=== PATIENT | female | born 1935 | race Caucasian/White ===

== ENCOUNTER 2016-04-25 15:34 | Inpatient (IN) | payer MEDICARE, OTHER ==
[~2016-04-25] VITALS: Ht 152.4 cm; Wt 38.6 kg
[~2016-04-25 15:34] MED LIST: ADV50050 INH; ALBU8.5H3 INH; ALEN70TA30 PO; CELE200C PO; CHOL20003 PO; CLIN-73 PO; CYCL5TAB PO; HYDR2TAB3 PO; LEVO500T72 PO; MORP15TA92 PO; PRED20 PO; TIOT18CA IH; [UNRECOGNIZED DRUG - CODE] PO
[2016-04-25] MEDS ORDERED: LEVOFLOXACIN 500MG/D5W (PMX) 100 ML IV STA (19:31)
[2016-04-25] MEDS ORDERED: AZTREONAM 1 GM/NS (PMX) 50 ML IVPB STA (19:37)
[2016-04-25] MEDS ORDERED: SODIUM CHLORIDE 0.9% 1L BAG IV* STA (19:37)
[2016-04-25] MEDS ORDERED: VANCOMYCIN 1 GM (PMX) 250 ML IVPB STA (19:37)
[2016-04-25] MEDS ORDERED: ONDANSETRON 4 MG INJ IV PRN (20:00)
[2016-04-25] MEDS ORDERED: MAGN400T28 PO (20:20)
[2016-04-25] MEDS ORDERED: MORP-58 PO (20:21)
[2016-04-25] MEDS ORDERED: HYDR4TAB18 PO (20:22)
[2016-04-25] MEDS ORDERED: CELE200C PO (20:23)
[2016-04-25] MEDS ORDERED: ALBU18HF INHALATION (20:24)
[2016-04-25] MEDS ORDERED: MULTI PO (20:29)
--- NOTE | 2016-04-25 20:30 | RADRPT ---
PROCEDURE: XR Chest AP portable CLINICAL INDICATION: Short of breath TECHNIQUE: An AP portable radiograph of the chest was submitted. COMPARISON: 04/08/2014 FINDINGS: Support Hardware: None Cardiovascular: The cardiovascular silhouette appears unremarkable except for persistent atheroscler otic change involving the aorta and centralization of the pulmonary vasculature suspicious for pulmo nary tail hypertension. Lung Gill: The lung gill remain hyperexpanded but the infiltrates and atelectatic change previou sly seen at the lung bases have cleared. Pleural Spaces: No pneumothorax or pleural effusion is identified. Osseous Structures: Degenerative spine changes are again noted with a dextroscoliotic curve of the t horacolumbar junction. Soft Tissues: The soft tissues appear unremarkable. IMPRESSION: 1. Resolution of the infiltrate/atelectatic change previously seen at the lung bases. 2. COPD with pulmonary arterial hypertension along with atherosclerotic change to the aorta. 3. Degenerative spine changes with a dextroscoliotic curve at the thoracolumbar junction. Physician Satish Date Time Electronically viewed and signed by Physician Satish on 04/25/2016 20:30 /
[2016-04-25] MEDS ORDERED: ANAS1TAB PO (20:37)
[2016-04-25 20:38] LABS: BASOPHILS % 0.3 % (0.0-2.0); EOSINOPHILS # 0.1 10^3/ul (0.0-0.5); HEMATOCRIT 44.1 % (37.0-47.0); HEMOGLOBIN 14.9 g/dl (12.0-16.0); LYMPHOCYTES # 1.1 10^3/ul (0.8-2.9); LYMPHOCYTES % 16.6 % (15.0-51.0); MEAN CORPUSCULAR HEMOGLOBIN 31.5 pg (29.0-33.0); MEAN CORPUSCULAR HGB CONC 33.8 g/dl (32.0-37.0); MEAN CORPUSCULAR VOLUME 93.1 fl (82.0-101.0); MEAN PLATELET VOLUME 8.5 fl (7.4-10.4); MONOCYTE # 0.4 10^3/ul (0.3-0.9); MONOCYTES % 5.8 % (0.0-11.0); NEUTROPHIL # 5.2 10^3/ul (1.6-7.5); NEUTROPHILS % 76.3 % (39.0-77.0); PLATELET COUNT 233 10^3/UL (140-440); RED BLOOD COUNT 4.73 10^6/ul (4.20-5.40); RED CELL DISTRIBUTION WIDTH 12.8 % (11.5-14.5); UNCORRECTED WBC 6.8 10^3/ul (4.8-10.8); WHITE BLOOD COUNT 6.8 10^3/ul (4.8-10.8)
[2016-04-25 20:39] LABS: CHLORIDE 95 mmol/L (97-110); POTASSIUM 3.5 mmol/L (3.5-5.1); SODIUM 142 mmol/L (135-144)
[2016-04-25 20:42] LABS: ANION GAP 17 (8-16); BLOOD UREA NITROGEN 23 mg/dl (7-20); CALCIUM 9.9 mg/dl (8.4-10.2); CARBON DIOXIDE 34 mmol/L (21-31); CREATININE 0.96 mg/dl (0.44-1.00); GLUCOSE 95 mg/dl (70-220)
[2016-04-25 20:43] LABS: CONDITION 1
[2016-04-25 20:56] LABS: TROPONIN-I < 0.012 ng/ml (0.00-0.12)
--- NOTE | 2016-04-25 21:21 | RADRPT ---
PROCEDURE: CT chest without contrast. CLINICAL INDICATION: Pain TECHNIQUE: Noncontrast CT of the chest was performed utilizing axial images with reconstructions i n sagittal and coronal planes. The administered radiation dose is CTDI 3.9 mGy, DLP 153 mGy-cm. COMPARISON: No pertinent prior examinations are submitted for comparison. FINDINGS: Chest: There is a 4.2 cm spiculated mass within the left lower lobe with some surrounding interstitial thic kening and associated trace pleural effusion. There is an 8 mm patchy spiculated nodule within the r ight middle lobe on image 77 of series 3. There is a 5 mm spiculated nodule in the right lower lobe on image 86 of series 3. Pulmonary emphysematous changes are present. The tracheobronchial tree i s unremarkable. There is extensive adenopathy in the paratracheal, subcarinal and bilateral hilar regions. Discrete lymph nodes are difficult to measure in the absence of intravenous contrast. There is trace pericardial effusion or thickening. Coronary artery calcifications are noted. The h eart is normal in size. Visualized Upper abdomen: Unremarkable. Osseous structures: There is mild to moderate anterior wedging of L1 without definite acute fracture . No lytic or blastic osseous lesions are seen. IMPRESSION: Left lower lobe mass with surrounding interstitial opacity and trace effusion. Findings are most co mpatible with primary lung neoplasm with likely adjacent lymphangitic spread of tumor. Mediastinal adenopathy. Smaller nodules in the right lower and middle lobes which could represent metastatic disease. Anterior wedging of L1 which is likely chronic unless the patient has acute back pain. RPTAT: HIKT .Doyle Nolasco MD, Date Time Electronically viewed and signed by .Doyle Nolasco MD, MD on 04/25/2016 21:20 .T/
[2016-04-25 21:45] VITALS: TEMP 98.7
--- NOTE | 2016-04-25 22:09 | ERA ---
ER Documentation Chief Complaint Date/Time DATE: 04/25/16 TIME: 22:07 Chief Complaint SOB FOR A FEW WKS. FAILED PO ABX FOR PNA. HERE FOR NO IMPROVEMENT OF SOB HPI Patient is an 80-year-old female who presents for pneumonia. The patient was sent by Dr. Christy Hernandez who is her primary doctor for admission. She has pneumonia. She says that she has had cough for the past 2-3 weeks. She has chest pain and shortness of breath. She was on antibiotics but is not better. Upon review of old medical records this is the patient's fourth visit to the ER since 2008. ROS All systems reviewed and are negative except as per history of present illness. Medications Home Meds Reported Medications Anastrozole* (Arimidex*) 1 Mg Tablet, 1 MG PO DAILY, #30 TAB 04/25/16 Multivitamins* (Theragran*) 1 Tab Tab, 1 TAB PO DAILY, TAB 04/25/16 Albuterol Sulfate* (Ventolin HFA*) 18 Gm Hfa.aer.ad, 2 PUFF INHALATION DIRECTED, #1 INHALER 04/25/16 Celecoxib* (Celebrex*) 200 Mg Capsule, 400 MG PO DAILY, CAP 04/25/16 Hydromorphone Hcl* (Dilaudid*) 4 Mg Tablet, 4 MG PO Q8 Y for PAIN, TAB 04/25/16 Morphine Sulfate* (Oramorph SR*) 30 Mg Tablet.sa, 30 MG PO Q12, TAB.SA 04/25/16 Magnesium Oxide* (Magnesium Oxide*) 400 Mg Tablet, 400 MG PO DAILY, TAB 04/25/16 Cholecalciferol (Vitamin D3) (VITAMIN D-3) 2,000 Unit Capsule, 2000 UNIT PO DAILY 03/31/14 Discontinued Reported Medications Cyclobenzaprine Hcl* (Cyclobenzaprine Hcl*) 5 Mg Tablet, 5 MG PO, TAB 12/15/14 Albuterol Sulfate* (Proair HFA*) 8.5 Gm Hfa.aer.ad, 1 PUFF INH Y for SHORTNESS OF BREATH, INH 03/31/14 Tiotropium Schuyler* (Spiriva*) 18 Mcg Cap.w.dev, 1 INH IH DAILY, EA 03/31/14 Salmeterol Xinaf-Fluticasone* (Advair*) 500/50 Diskus Inhaler, 1 INH INH DAILY, INH 03/31/14 Acyclovir* (Zovirax*) 200 Mg Capsule, 800 MG PO DAILY, CAP 03/30/14 Alendronate Sodium* (Fosamax*) 70 Mg Tablet, 70 MG PO Q7D, TAB 03/30/14 Morphine Sulfate* (Ms Contin*) 15 Mg Tablet.sa, 15 MG PO Q12, TAB 03/30/14 Hydromorphone Hcl (Dilaudid) 2 Mg Tab, 2 MG PO BID Y for PAIN, TAB 03/30/14 Celecoxib* (Celebrex*) 200 Mg Capsule, 200-400 MG PO DAILY, CAP 03/30/14 Discontinued Scripts Clindamycin Hcl* (Clindamycin Hcl*) 300 Mg Capsule, 300 MG PO TID for 7 Days, CAP Prov:DAVID PHAN PA-C 02/27/16 Prednisone (Prednisone) 20 Mg Tab, 40 MG PO qd for 4 days then 1, #14 TAB Prov:CHRISTY HERNANDEZ MD 04/08/14 Levofloxacin* (Levaquin*) 500 Mg Tab, 500 MG PO DAILY@06, #7 Prov:CHRISTY HERNANDEZ MD 04/08/14 Allergies Allergies: Coded Allergies: benztropine (Verified Allergy, Severe, 04/25/16) tremors badly. pineapple (Verified Allergy, Severe, severe rashes, 04/25/16) acetaminophen (Unverified Allergy, Intermediate, 04/25/16) STOMACH UPSET/VOMITING. ibuprofen (Verified Allergy, Intermediate, 04/25/16) STOMACH UPSET/VOMITING. Penicillins (Verified Allergy, Unknown, 04/25/16) Sulfa (Sulfonamide Antibiotics) (Verified Allergy, Unknown, 04/25/16) codeine (Verified Adverse Reaction, Unknown, NV, 04/25/16) Uncoded Allergies: STRAWBERRIES (Allergy, Severe, severe rashes, 03/30/14) TOMATOES (Allergy, Severe, severe rashes, 03/30/14) plastic tape. (Allergy, Severe, 12/15/14) itchy, redness. PMhx/Soc History of Surgery: Yes (LUMPECTOMY 12/13;HIP SURGERY;) Anesthesia Reaction: No Hx Neurological Disorder: No Hx Respiratory Disorders: Yes (HAD PNEUMONIA LAST MARCH 2014) Hx Cardiac Disorders: Yes (HYPERTENSION) Hx Psychiatric Problems: No Hx Miscellaneous Medical Probl: No Hx Alcohol Use: No Hx Substance Use: No Hx Tobacco Use: No Smoking Status: Never smoker FmHx Family History: No diabetes Physical Exam Vitals Vital Signs Date Time Temp Pulse Resp B/P Pulse Ox O2 Delivery O2 Flow Rate FiO2 04/25/16 15:47 99.1 100 22 128/58 95 Physical Exam Const: No acute distress Head: Atraumatic Eyes: Normal Conjunctiva ENT: Normal External Ears, Nose and Mouth. Neck: Full range of motion..~ No meningismus. Resp: Clear to auscultation bilaterally Cardio: Regular rate and rhythm, no murmurs Abd: Soft, non tender, non distended. Normal bowel sounds Skin: Pale Back: No midline or flank tenderness Ext: No cyanosis, or edema Neur: Awake and alert Psych: Normal Mood and Affect Result Diagram: 04/25/16199904/25/161999 Results 24 hrs Current Medications Medications (Trade) Dose Ordered Sig/Machelle Route PRN Reason Start Time Stop Time Status Last Admin Dose Admin Levofloxacin/ Dextrose (Levaquin 500mg/ D5W 100 ml (Pmx)) 100 ml @ 100 mls/hr ONCE STAT IV 04/25/16 19:31 04/25/16 19:40 DC Sodium Chloride 1200 ml 1,200 ml BOLUS OVER 2 HOURS STAT IV* 04/25/16 19:37 04/25/16 19:40 DC 04/25/16 20:39 Vancomycin HCl 250 ml @ 125 mls/hr ONCE STAT IVPB 04/25/16 19:37 04/25/16 21:36 DC 04/25/16 21:13 Aztreonam (Azactam 1gm/NS (Pmx)) 50 ml @ 100 mls/hr ONCE STAT IVPB 04/25/16 19:37 04/25/16 20:06 DC 04/25/16 20:39 Procedures/MDM EKG read by me: Rate/Rhythm: Regular rate and rhythm at a normal rate Intervals: Normal Impression: No evidence of ischemia or arrhythmia CT scan shows lung mass per radiology. Patient is an 80-year-old female presents with chest pain and shortness of breath. The patient had been treated with antibiotics for a pneumonia. The patient will be admitted to Dr. Christy Hernandez her primary doctor for further treatment. Unfortunately CT scan does show a lung mass which is likely lung cancer. The patient will need further workup and treatment for this while admitted to the hospital. I doubt sepsis at this time. Departure Diagnosis: Primary Impression: PNA (pneumonia) Qualified Code: J18.9 - Pneumonia due to infectious organism, unspecified laterality, unspecified part of lung Additional Impression: Lung mass Condition: HARIKA Plummer MD Apr 25, 2016 22:09
[2016-04-25 22:30] VITALS: BP 148/85; PULSE 85; RESP 18; Ht 152.4 cm; Wt 38.6 kg
[2016-04-25] MEDS ORDERED: ZOLPIDEM 5 MG TAB PO PRN (23:00)
[2016-04-25] MEDS: D5W-0.45 NACL + KCL 20 MEQ 1,000 ML IV SCH (23:37)
[2016-04-26] MEDS: LEVALBUTEROL (NEB) 0.63 MG/3 ML AMP HHN SCH ×3 (00:51→15:46)
[2016-04-26] MEDS: HYDROmorphONE 2 MG/ML SYG IV PRN ×2 (01:35→09:26)
[2016-04-26] MEDS ORDERED: VITAMIN A & D 5 GM OINT PACKET TOP ONE (01:55)
[2016-04-26 05:45] LABS: INR 1.02; PROTIME 13.4 Sec (12.2-14.2)
[2016-04-26 05:46] LABS: PARTIAL THROMBOPLASTIN TIME 31.7 Sec (25.0-35.0)
[2016-04-26 06:08] LABS: ALBUMIN 3.4 g/dl (3.3-4.9); POTASSIUM 3.5 mmol/L (3.5-5.1)
[2016-04-26 06:11] LABS: ALBUMIN/GLOBULIN RATIO 1.3; BILIRUBIN,INDIRECT 0.1 mg/dl (0-1.1); BILIRUBIN,TOTAL 0.1 mg/dl (0.2-1.3); CALCIUM 8.6 mg/dl (8.4-10.2); CREATININE 0.78 mg/dl (0.44-1.00)
[2016-04-26 07:32] VITALS: BP 156/70; RESP 13
[2016-04-26] MEDS: MULTIVITAMINS THERAPEUTIC TAB PO SCH (09:28)
[2016-04-26] MEDS: MAGNESIUM OXIDE 400 MG TAB PO SCH (09:28)
[2016-04-26] MEDS: CELECOXIB 200 MG CAP PO SCH (09:28)
[2016-04-26] MEDS: CHOLECALCIFEROL 2,000 UNIT CAP PO SCH (09:28)
[2016-04-26] MEDS: morphine (ER) 30 MG TAB PO SCH ×2 (09:28→20:49)
[2016-04-26] MEDS: AZTREONAM 2 GM in SOD CHLORIDE 0.9% 100 ML IVPB SCH ×2 (09:34→20:50)
[2016-04-26] MEDS: ANASTROZOLE 1 MG TAB PO SCH (09:50)
--- NOTE | 2016-04-26 12:45 | CONS ---
DATE OF ADMISSION: 04/25/2016 DATE OF CONSULTATION: 04/26/2016 MEDICAL ONCOLOGY CONSULTATION REQUESTING PHYSICIAN: Christy Hernandez MD REASON FOR CONSULTATION: Left lung mass. Dear Dr. Hernandez: Thank you very much for asking me to see this very interesting and pleasant patient in oncologic consultation. As you are aware, I have seen this patient previously. Originally the patient was seen in July 2014. The patient at that time had undergone a needle biopsy of a mass that had been found on a routine mammogram in the left breast. 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 The tumor was found to be estrogen and progesterone receptor positive. There was no amplification of the HER2/kaylah oncogene. The patient then underwent a resection of the right breast mass on 12/15/2014. The patient was found to have invasive lobular carcinoma with a maximum dimension of 13 mm. There was some invasive carcinoma at the superior margin. The patient was advised at that time to undergo reexcision, but was hesitant. Ultimately the patient did undergo reexcision of the area on 01/26/2015. There was no residual malignancy found. The patient was then referred for radiation therapy evaluation, but never started radiation. The patient continued to delay. Ultimately, the patient was last seen by Dr. Nader Mcneil for radiation evaluation in December, but was considered at that time that the patient was too long of an interval for radiation to be of benefit. The patient at that time was started on anastrozole 1 mg daily and has been taking that since that time, but it was felt at that time that the interval was too long. The patient, it should be noted, did have a PET CT scan done in August 2014. This did show the mass in the breast and also questionable nodules in the superior segment of the left lower lobe. It was unclear whether this was inflammatory in nature. The patient also did have previous marker studies obtained. This includes, on 07/06/2015, a CEA of 8.7 and CA 27-29 of 17.4. This was repeated 3 weeks ago, and the patient has a CEA now 146 and CA 27 of 28.3. The patient is now admitted after experiencing some mild chest discomfort. X-rays done as an outpatient suggested a left lower lobe pneumonia. The patient was treated with Levaquin. Symptoms did not improve. The patient has now undergone a CT scan of the chest on 04/25/2016 which demonstrates a left lower lobe mass. There is also mediastinal adenopathy noted. There were smaller nodules in the right lower and right middle lobes. The patient, as noted, has had some pressed chest discomfort and also some shortness of breath with dyspnea on exertion. She denies cough or hemoptysis. She has had no pleuritic chest pain. No fevers, chills, nor night sweats. No other areas of pain except for chronic back pain. LABORATORY on admission includes a white count of 6800, hemoglobin 14.9, hematocrit 44.1, platelet count 233,000. Prothrombin time was 13.4 seconds, INR of 1.02, and PTT 31.7 seconds. A comprehensive metabolic panel is normal except for a total protein of only 6, albumin is 3.4, and globulin 2.6. PAST MEDICAL HISTORY: Includes a history of dyslexia. She also states she has hepatitis B, herpes zoster as well as herpes simplex, asthma, scoliosis, and a total hip replacement on the right side. The patient also states she has had D and C's in the past for "polyps." The patient had menarche at 9 years of age. Last menstrual period was in 1972. The patient is 1, para 1, AB 0. was when the patient was 18 years of age. She states that she did take some type of hormone replacement since age 19. She did take Premarin for many years, but then was switched to raloxifen which she took until seen in 2014. MEDICATIONS: At this time include: 1. Acyclovir 200 mg daily. 2. Anastrozole 1 mg daily. 3. Celebrex 200 mg daily. 4. Denosumab 60 mg every 6 months. 5. Hydromorphone 2 mg on a p.r.n. basis. 6. Morphine 15 mg daily orally. 7. Multiple vitamins. 8. Vitamin D3. ALLERGIES: THE PATIENT STATES SHE IS ALLERGIC TO: 1. PENICILLINS. 2. SULFA. 3. ACETAMINOPHEN. 4. CODEINE. 5. IBUPROFEN. SOCIAL HISTORY: The patient is unmarried. 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 She has no known exposures to industrial toxins or ionizing radiation. FAMILY HISTORY: Includes that father may have had lung cancer. He at 67. Mother at 83 of colon cancer. She has a brother who is alive at 75 years of age with multiple sclerosis. The patient did smoke in the past. She states she has not smoked since 2084. Does use alcohol. PHYSICAL EXAMINATION: GENERAL: At this time, reveals a well-developed, thin female in no acute distress. VITAL SIGNS: Temperature 99, pulse 68, respirations 14, blood pressure 156/70, and pulse oximetry is 93% on room air. SKIN: No ecchymosis, no petechiae, or rashes. HEENT: Normocephalic. No evidence of trauma. The pupils are equal, round, reactive to light and accommodation. Sclerae nonicteric. Oral mucosa is moist without lesions. Tongue is well papillated. There is no gingival hyperplasia, no hypertrophy of Waldeyer's ring, no mucosal telangiectasias. NECK: Supple, no jugular venous distention or thyroid enlargement. CHEST: There are some decreased breath sounds and rales heard in the left base. No rubs. The right lung us clear. There is no pain on percussion of the spine, sternum, clavicles, or ribs. BREASTS: There is a well-healed incision in the medial aspect of the right breast as well as in the right axilla. There are no masses, skin retraction, or nipple inversion in either breast. HEART: Regular sinus rhythm, no S3, S4, or murmurs. ABDOMEN: Soft. No masses or ascites. Bowel sounds are active. EXTREMITIES: Good range of motion. No clubbing, no edema or cyanosis. No palpable cords or Homans sign. NEUROLOGIC: Normal. DISCUSSION: This patient has a history of invasive carcinoma of the breast, but this was a stage I lesion. The patient never had postoperative radiation after her "lumpectomy." She has been taking anastrozole 1 mg daily. The patient now has a mass in the left lower lobe of the lung. She has an increasing CEA, but a normal CA 27-29. This suggests the probability of a primary lesion of the lung. I do feel that a tissue diagnosis is necessary and this can best be obtained by doing a CT-guided needle biopsy of the left lower lobe mass. If a malignancy is demonstrated, the patient should then also have a PET CT scan to determine the extent of disease. Once again, thank you very much for the opportunity of participating in the medical care of this very interesting and pleasant patient. I will be happy to follow this patient with you and assist in her oncologic evaluation and follow up as necessary. Dictated By: CLARISSA DE PAZ MD, SR/CHRISSIE Conf#: [id number] DID#: [id number] MTDD
[2016-04-26] MEDS: D5W-0.45 NACL + KCL 20 MEQ 1,000 ML IV SCH (14:09)
--- NOTE | 2016-04-26 16:41 | HP ---
DATE OF ADMISSION: 04/25/2016 CHIEF COMPLAINT: Chest pain, shortness of breath and nausea and vomiting. HISTORY OF PRESENT ILLNESS: This is an 80-year-old female with a history of right breast cancer who was seen in the office 1 week prior to admission and noted to have new onset left basilar infiltrate. Patient did not want to be admitted for pneumonia at that time and she was started on Levaquin for 1 week. She came back for recheck the day prior to admission and the chest x-ray showed unchanged left basilar infiltrate. We then obtained a set of blood tests with CBC and kidney panel and order for a chest CT the following day to be done at [facility]. However, on the day of appointment for her CT scan, the patient began developing nausea, vomiting and became very weak. She asked a friend to bring her into the emergency room where she was found to be dehydrated and the chest CT showed left basilar mass consolidation. The patient is admitted for treatment of possible pneumonitis that is resistance to Levaquin and workup for possible left lung cancer versus metastatic breast cancer. PAST MEDICAL HISTORY: 1. Breast cancer. 2. Multiple cysts bilateral breasts. 3. History of left lung nodules. 4. Hypertension. 5. History of pneumonia. 6. Lumbar spine degenerative disk disease. 7. Osteoarthritis status post hip surgery. 8. Osteoporosis. 9. Asthma. 10. Insomnia. ALLERGIES 1. PENICILLIN. 2. SULFA. OTHER MEDICATION THAT CAUSES A LOT OF NAUSEA AND VOMITING: INCLUDE: 1. IBUPROFEN. 2. TYLENOL WITH CODEINE. 3. HYDROCODONE. 4. OXYCODONE. MEDICATIONS: 1. Arimidex 1 mg p.o. every day. 2. Celebrex 200 mg p.o. daily. 3. Morphine sulfate ER 30 mg p.o. b.i.d. 4. Magnesium oxide 400 mg p.o. every day. 5. Vitamin D 2000 units p.o. every day. 6. Dilaudid 4 mg p.o. q. 8 hours as needed for pain. 7. Albuterol sulfate HFA as needed for asthma. SOCIAL HISTORY: The patient lives alone in her own home. She is not able to drive. She denies ever having smoked and she does not drink alcohol. 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 FAMILY HISTORY: Negative for cancer or heart disease. PHYSICAL EXAMINATION: GENERAL: Thin, cachectic-appearing female who is awake and alert x4. VITAL SIGNS: T-max 99.1, current temperature 98.2, blood pressure 148/85, pulse of 85, respiration rate 18, O2 saturation 95% on room air. HEENT: Pupils equally round, reactive to light. Oropharynx clear with, dry buccal mucosa. NECK: No jugular venous distention. CHEST LUNGS: Notable for a left basilar rales [address] There are minimal right basilar rales. ABDOMEN: Active bowel sounds, soft, nondistended, nontender. EXTREMITIES: No clubbing, cyanosis, no edema at this time. LABORATORY: WBC 6.8, hemoglobin 14.9, hematocrit 44.1, platelet count 233,000. Differentials are within normal limits. Chemistry shows a sodium of 139, potassium 3.5, BUN was elevated last night at 23. It was normal at 17 this morning, creatinine 0.7. The patient's liver enzymes are within normal limits except for mild decrease of total protein of 6.0. Chest x-ray in the ER shows resolution of the infiltrate previously seen at the lung bases compared to the chest x-ray of 2015. There are COPD changes with pulmonary, arterial hypertension along with atherosclerotic changes to the aorta. There are degenerative spine changes with dextroscoliotic curve at the level of the thoracolumbar junction. The patient's chest CT shows left lower lobe mass with surrounding interstitial opacities and trace effusion. Findings are most compatible with primary spasm with likely adjacent lymphangitic spread of tumor. There is mediastinal adenopathy. There are smaller lung nodules in the right lower and middle lobe which could represent metastatic disease and anterior compression fracture of L1 which is probably chronic. ASSESSMENT AND PLAN : 1. Left lower lobe consolidation may represent lung cancer but also may be resolving pneumonitis. I will also obtain the old CT scan reports. The patient insists that she has had left base nodule for many, many years. In the meantime, we will continue the patient on IV antibiotic and check with patient' s oncologist, Dr. Cordova regarding further workup for her left lung mass. 2. Chest pain, most likely due to pulmonary changes, but since she does have evidence of pulmonary hypertension on chest x-ray, I will obtain a 2D echocardiogram. Dictated By: FERNIE BONE MD DP/CHRISSIE Conf#: [id number] [facility]#: [id number] MTDD
[2016-04-26] MEDS ORDERED: DIPHENHYDRAMINE 50 MG INJ IV PRN (17:00)
[2016-04-26 20:31] VITALS: BP 125/74; RESP 18
[2016-04-26] MEDS ORDERED: DOCUSATE SODIUM 10 MG/ML (10ML CUP) GTB SCH (21:00)
[2016-04-26] MEDS: DOCUSATE SODIUM 100 MG CAP PO SCH (21:10)
[2016-04-27] MEDS: D5W-0.45 NACL + KCL 20 MEQ 1,000 ML IV SCH ×3 (03:36→17:54)
[2016-04-27] MEDS: LEVALBUTEROL (NEB) 0.63 MG/3 ML AMP HHN SCH ×4 (07:33→18:19)
[2016-04-27 07:34] VITALS: BP 116/67; RESP 18
[2016-04-27] MEDS: MULTIVITAMINS THERAPEUTIC TAB PO SCH (08:07)
[2016-04-27] MEDS: CHOLECALCIFEROL 2,000 UNIT CAP PO SCH (08:07)
[2016-04-27] MEDS: CELECOXIB 200 MG CAP PO SCH (08:07)
[2016-04-27] MEDS: DOCUSATE SODIUM 100 MG CAP PO SCH ×2 (08:07→20:38)
[2016-04-27] MEDS: MAGNESIUM OXIDE 400 MG TAB PO SCH (08:07)
[2016-04-27] MEDS: AZTREONAM 2 GM in SOD CHLORIDE 0.9% 100 ML IVPB SCH ×2 (08:08→20:37)
[2016-04-27] MEDS: ANASTROZOLE 1 MG TAB PO SCH (08:20)
[2016-04-27] MEDS: morphine (ER) 30 MG TAB PO SCH ×2 (08:49→20:46)
--- NOTE | 2016-04-27 18:02 | PN ---
Date/Time of Note Date/Time of Note DATE: 04/27/16 TIME: 17:59 Assessment/Plan VTE Prophylaxis VTE Prophylaxis Intervention: ambulation Lines/Catheters IV [facility] Peripheral IV Assessment/Plan Chief Complaint/Hosp Course Patient with: 1. Left lower lung mass, with plan for biopsy. Its ordered with plan to be done Friday. 2. Breast cancer, stage 1, recent diagnosis and on Arimidex. 3. Mild shortness of breath, which is new during admit Plan: Biopsy Friday Continue Anastrazole HLIV - in case she is volume overloaded causing sob. Problems: Subjective 24 Hr Interval Summary Free Text/Dictation She feels somewhat short of breath, which is new. On inhalers and small amount oxygen. She is on IVF could have volume issues. Exam/Review of Systems Vital Signs Vitals Vital Signs Date Time Temp Pulse Resp B/P Pulse Ox O2 Delivery O2 Flow Rate FiO2 04/27/16 16:00 94 1.0 04/27/16 08:00 Nasal Cannula 04/27/16 07:34 97.7 68 18 116/67 04/26/16 01:02 21 Intake and Output 04/26/16 04/26/16 04/27/16 15:00 23:00 07:00 Intake Total 1100 ml 1910 ml 1060 ml Balance 1100 ml 1910 ml 1060 ml Exam This female, up and about. NAD No LAD Chest - decrease breath sounds and distant sounds bilaterally. Heart - regularly Abd soft Legs trace edema. Results Result Diagram: 04/25/16199904/26/16 0455 Medications Medications Current Medications Potassium Chloride/Dextrose/ Sod Cl (D5-1/2ns + KCl 20 Meq) 1,000 ml @ 70 mls/ hr [id number] IV Last administered on 04/27/16 05:16; Admin Dose 70 MLS/HR; Start 04/25/16 at 23:00 Anastrozole (Arimidex) 1 mg DAILY PO Last administered on 04/27/16 08:20; Admin Dose 1 MG; Start 04/26/16 at 09:00 Celecoxib (Celebrex) 400 mg DAILY PO Last administered on 04/27/16 08:07; Admin Dose 400 MG; Start 04/26/16 at 09:00 Cholecalciferol (Vitamin D) 2,000 unit DAILY PO Last administered on 04/27/16 08:07; Admin Dose 2,000 UNIT; Start 04/26/16 at 09:00 Magnesium Oxide (Mag-Ox 400) 400 mg DAILY PO Last administered on 04/27/16 08: 07; Admin Dose 400 MG; Start 04/26/16 at 09:00 Morphine Sulfate (Ms Contin (Er)) 30 mg Q12 PO Last administered on 04/26/16 20:49; Admin Dose 30 MG; Start 04/26/16 at 09:00 Multivitamins Therapeutic 1 tab 1 tab DAILY PO Last administered on 04/27/16 08:07; Admin Dose 1 TAB; Start 04/26/16 at 09:00 Aztreonam/Sodium Chloride (Azactam/NS) 100 ml @ 100 mls/hr Q12 IVPB Last administered on 04/27/16 08:08; Admin Dose 100 MLS/HR; Start 04/26/16 at 09:00 Ondansetron HCl (Zofran Inj) 4 mg Q4H PRN IV NAUSEA AND/OR VOMITING; Start at 23:00 Zolpidem Tartrate (Ambien) 5 mg HS PRN PO INSOMNIA; Start 04/25/16 at 23:00 Clonidine (Catapres) 0.1 mg Q6H PRN PO sbp>160; Start 04/25/16 at 23:00 Hydromorphone HCl (Dilaudid) 2 mg Q4H PRN IV PAIN Last administered on 09:26; Admin Dose 2 MG; Start 04/26/16 at 01:30 Diphenhydramine HCl (Benadryl) 25 mg Q6H PRN IV ITCHING Last administered on 17:29; Admin Dose 25 MG; Start 04/26/16 at 17:00 Docusate Sodium (Colace) 100 mg BID PO Last administered on 04/27/16 08:07; Admin Dose 100 MG; Start 04/26/16 at 21:00 JORGE SIM MD Apr 27, 2016 18:02
[2016-04-27] MEDS: HYDROmorphONE 2 MG/ML SYG IV PRN ×2 (19:32→23:35)
[2016-04-27 19:48] VITALS: BP 117/60; RESP 20
[2016-04-28] MEDS: HYDROmorphONE 2 MG/ML SYG IV PRN ×4 (05:49→23:09)
[2016-04-28 07:10] LABS: CREATINE KINASE 40 IU/L (23-200)
[2016-04-28 07:19] LABS: TROPONIN-I < 0.012 ng/ml (0.00-0.12)
[2016-04-28 07:37] VITALS: BP 139/71; RESP 18
--- NOTE | 2016-04-28 07:38 | RADRPT ---
Echocardiogram Report Patient Name: JAMIR BRUNO Gender: Female Date: 1935 Study Date: 26-Apr-2016 Eap Specialist: Mar [facility] Location: 604 Ref. Physician: FERNIE BONE Quality: Adequate Procedures: Transthoracic echocardiogram with complete 2D, M-Mode, and doppler examination. Indications: Chest Pain. Pulmonary Hypertension. 2D/M Mode Doppler Measurement Value Normal Ranges Measurement Value Normal Ranges LVIDd 2D 2.8 3.5 - 5.6 cm AV Peak Anshu 1.5 m/sec LVIDs 2D 1.7 2.1 - 4.1 cm AV Peak PG 8.0 mmHg FS 2D 40.8 % LVOT Peak Anshu 0.9 m/sec LVPWd 2D 0.8 0.6 - 1.1 cm LVOT Peak PG 3.0 mmHg IVSd 2D 0.8 0.6 - 1.1 cm MV E Peak Anshu 1.1 m/sec IVS/LVPW 2D 1.0 MV A Peak Anshu 0.9 m/sec AoR Diam 2D 2.1 2.0 - 3.7 cm MV E/A 1.3 LA/Ao 2D 1 0 - 1 MV Decel Time 215 msec EDV 2D 22.4 cm3 MV E/A 1.3 ESV 2D 4.7 cm3 TR Peak Anshu 3.4 m/sec LA Dimen 2D 2.3 2.3 - 4.0 cm TR Peak PG 46.0 mmHg Findings Left Ventricle: Hyperdynamic left ventricular systolic function. Normal left ventricular wall thickness. Reduced left ventricular cavity size. Abnormal Diastolic Function. Right Ventricle: Mild enlargement of right ventricle. Borderline right ventricular hypertrophy. Hyperdynamic right ventricular systolic function. Prominent moderator band - normal variant. Left Atrium: The left atrium is normal in size. Right Atrium: There is mild enlargement of right atrium. Mitral Valve: Mild mitral leaflet calcification. Mild mitral annular calcification. Trace mitral regurgitation. Aortic Valve: Trileaflet aortic valve. Trace aortic valve regurgitation. Tricuspid Valve: There is mild tricuspid regurgitation. Pericardium: Normal pericardium with no significant pericardial effusion. Aorta: Normal aortic root. IVC: Normal size and normal respiratory collapse consistent with normal right atrial pressure. Conclusions 1.Hyperdynamic left ventricular systolic function. Normal left ventricular wall thickness. Reduced left ventricular cavity size. Abnormal Diastolic Function. Electronically Signed By: Roly Rubi 28-Apr-2016 07:38:18 -0800 Patient Name: JAMIR BRUNO Study Date: 26-Apr-[id number]
[2016-04-28] MEDS: LEVALBUTEROL (NEB) 0.63 MG/3 ML AMP HHN SCH ×3 (08:56→23:54)
[2016-04-28] MEDS: CELECOXIB 200 MG CAP PO SCH (09:35)
[2016-04-28] MEDS: DOCUSATE SODIUM 100 MG CAP PO SCH ×2 (09:35→20:51)
[2016-04-28] MEDS: MULTIVITAMINS THERAPEUTIC TAB PO SCH (09:35)
[2016-04-28] MEDS: morphine (ER) 30 MG TAB PO SCH ×2 (09:36→20:55)
[2016-04-28] MEDS: MAGNESIUM OXIDE 400 MG TAB PO SCH (09:36)
[2016-04-28] MEDS: CHOLECALCIFEROL 2,000 UNIT CAP PO SCH (09:36)
[2016-04-28] MEDS: ANASTROZOLE 1 MG TAB PO SCH (09:37)
--- NOTE | 2016-04-28 09:47 | PN ---
DATE: 04/27/2016 SUBJECTIVE: The patient is awake and alert, very cooperative. She is well oriented. The patient s tates that she feels much better now. OBJECTIVE: VITAL SIGNS: Temperature 99. CHEST: Reveals clear to A and P. HEART: Normal sinus rhythm. No murmurs, no bruits. ABDOMEN: Liver, kidneys, spleen are not palpable. Bowel sounds are normal. EXTREMITIES: There is no ankle edema. LABORATORY DATA: Reveals a temperature of 99. Electrolytes: Sodium 138, potassium 3.5, chloride 9 9, carbon dioxide 31, BUN 17, creatinine 0.78, sugar 107, calcium 8.6, carcinoembryonic antigen elev ated at 147. CA 27-29 is normal at 32. Blood culture was negative x2. IMAGING: Chest x-ray revealed resolution of the infiltrate and atelectasis previously noted at the lung bases, revealed COPD with pulmonary arterial hypertension along with atherosclerotic changes in the aorta. There was also degenerative spine change with dextroscoliotic curve at the thoracolumba r junction. CAT scan of the chest reveals a 4.2 cm spiculated mass in the left lower lobe with surr ounding interstitial opacity and trace effusion. Findings are most compatible with primary lung kanchan plasm, and likely adjacent lymphangitic spread of the tumor. She also has mediastinal adenopathy, s maller nodules in the right lower and middle lobes which could represent metastatic disease. Anteri or wedging of L1 which is likely chronic unless the patient has acute back pain. PLAN: The patient is to have a lung biopsy Friday. Dictated By: CHRISTOPHER NAVA/CHRISSIE Conf#: [id number] DID#: [id number]
[2016-04-28] MEDS: AZTREONAM 2 GM in SOD CHLORIDE 0.9% 100 ML IVPB SCH ×2 (09:54→20:51)
[2016-04-28 09:59] LABS: CK-MB 0.78 ng/ml (0.0-2.4)
[2016-04-28 10:37] LABS: CREATINE KINASE 47 IU/L (23-200)
[2016-04-28 10:52] LABS: CK-MB 1.06 ng/ml (0.0-2.4)
[2016-04-28 11:10] LABS: TROPONIN-I < 0.012 ng/ml (0.00-0.12)
[2016-04-28] MEDS ORDERED: LIDOCAINE 1% (MDV) 20 ML INJ SC ONE (14:00)
--- NOTE | 2016-04-28 14:03 | RADRPT ---
Vent Rate: 70 bpm RR Interval: 0 msec MN Interval: 162 msec QRS Duration: 66 msec QT Interval: 384 msec QTC Interval: 414 msec P-R-T [place]: 86 - 87 - 82 degrees Sinus rhythm with marked sinus arrhythmia Anteroseptal infarct , age undetermined Abnormal ECG Electronically Signed By: Mike Sequeira [id number]
[2016-04-28 14:56] LABS: CREATINE KINASE 45 IU/L (23-200)
[2016-04-28 15:04] LABS: CK-MB 0.98 ng/ml (0.0-2.4)
[2016-04-28 15:13] LABS: TROPONIN-I < 0.012 ng/ml (0.00-0.12)
--- NOTE | 2016-04-28 18:50 | PN ---
Date/Time of Note Date/Time of Note DATE: 04/28/16 TIME: 18:48 Assessment/Plan VTE Prophylaxis VTE Prophylaxis Intervention: ambulation Lines/Catheters IV [facility]ter Type (from [facility]): Saline Lock Assessment/Plan Chief Complaint/Hosp Course Patient with: 1. Left lower lung mass, with plan for biopsy. Its ordered with plan to be done Friday. 2. Breast cancer, stage 1, recent diagnosis and on Arimidex. 3. Mild shortness of breath. She is somewhat better today after stopping IVF. Plan: Biopsy Friday Continue Anastrazole Management of chronic back pain. Problems: Subjective 24 Hr Interval Summary Free Text/Dictation She has multiple complaints about being in the hospital. Chronic back pain, not getting pain meds regularly. Worried about biopsy - discussed. Exam/Review of Systems Vital Signs Vitals Vital Signs Date Time Temp Pulse Resp B/P Pulse Ox O2 Delivery O2 Flow Rate FiO2 04/28/16 17:01 1.0 24 04/28/16 14:26 94 04/28/16 14:26 78 20 Nasal Cannula 04/28/16 07:37 98.3 139/71 Intake and Output 04/27/16 04/27/16 04/28/16 15:00 23:00 07:00 Intake Total 1730 ml 500 ml Balance 1730 ml 500 ml Exam NAD This Decreased breath sounds bilaterally, left more than right. No edema Results Result Diagram: 04/25/16199904/26/16 0455 Results 24 hrs Laboratory Tests Test 04/28/16 05:23 04/28/16 09:52 04/28/16 14:10 Creatine Kinase 40 47 45 Creatine Kinase Index 2.0 2.3 2.2 Creatinine Kinase MB (Mass) 0.78 1.06 0.98 Troponin I < 0.012 < 0.012 < 0.012 Medications Medications Current Medications Anastrozole (Arimidex) 1 mg DAILY PO Last administered on 04/28/16 09:37; Admin Dose 1 MG; Start 04/26/16 at 09:00 Celecoxib (Celebrex) 400 mg DAILY PO Last administered on 04/28/16 09:35; Admin Dose 400 MG; Start 04/26/16 at 09:00 Cholecalciferol (Vitamin D) 2,000 unit DAILY PO Last administered on 04/28/16 09:36; Admin Dose 2,000 UNIT; Start 04/26/16 at 09:00 Magnesium Oxide (Mag-Ox 400) 400 mg DAILY PO Last administered on 04/28/16 09: 36; Admin Dose 400 MG; Start 04/26/16 at 09:00 Morphine Sulfate (Ms Contin (Er)) 30 mg Q12 PO Last administered on 04/28/16 09:36; Admin Dose 30 MG; Start 04/26/16 at 09:00 Multivitamins Therapeutic 1 tab 1 tab DAILY PO Last administered on 04/28/16 09:35; Admin Dose 1 TAB; Start 04/26/16 at 09:00 Aztreonam/Sodium Chloride (Azactam/NS) 100 ml @ 100 mls/hr Q12 IVPB Last administered on 04/28/16 09:54; Admin Dose 100 MLS/HR; Start 04/26/16 at 09:00 Ondansetron HCl (Zofran Inj) 4 mg Q4H PRN IV NAUSEA AND/OR VOMITING; Start at 23:00 Zolpidem Tartrate (Ambien) 5 mg HS PRN PO INSOMNIA; Start 04/25/16 at 23:00 Clonidine (Catapres) 0.1 mg Q6H PRN PO sbp>160; Start 04/25/16 at 23:00 Hydromorphone HCl (Dilaudid) 2 mg Q4H PRN IV PAIN Last administered on 14:59; Admin Dose 2 MG; Start 04/26/16 at 01:30 Diphenhydramine HCl (Benadryl) 25 mg Q6H PRN IV ITCHING Last administered on 17:29; Admin Dose 25 MG; Start 04/26/16 at 17:00 Docusate Sodium (Colace) 100 mg BID PO Last administered on 04/28/16 09:35; Admin Dose 100 MG; Start 04/26/16 at 21:00 JORGE SIM MD Apr 28, 2016 18:50
[2016-04-28 19:51] VITALS: BP 135/72
--- NOTE | 2016-04-28 23:57 | PN ---
DATE: The patient is awake, rational, alert. The patient complains of pain in her lumbar spine and some p ain in the chest, lower chest and epigastric area. The patient has a mass in her left lung. She al so had a history of breast carcinoma. The patient to have a CT-guided needle biopsy of the mass in her lung to see if this is primary or if this is a metastasis and also to check and see if it is mal ignant or not. This will be performed tomorrow, 04/29/2016. PHYSICAL EXAMINATION: LUNGS: Clear to A and P. HEART: Normal sinus rhythm. No murmurs, no thrills, no bruits. A2 is greater than P2. ABDOMEN: Liver, kidneys and spleen are not palpable. Bowel sounds are normal. There are no intra- abdominal masses or bruits. ANKLES: No edema. LABORATORY: Her EKG revealed an anteroseptal infarct, age undetermined. She had 3 troponin-I levels, all of which were normal, and she had 3 CPK with isoenzyme determinatio ns, all of which were within normal levels, so the anterior septal infarct, if she ever had one, but must be old. Her INR is 1.02. Blood culture was negative x2. The patient will have a CAT scan-guided needle biopsy of the mass in her left lung in the morning to paolo. Dictated By: CHRISTOPHER NAVA/CHRISSIE Conf#: [id number] DID#: [id number]
--- NOTE | 2016-04-28 23:58 | PN ---
DATE: 04/28/2016 ADDENDUM The patient to have a PICC line inserted because her veins have been exhausted and it is very diffic ult for her nurses to get an IV started. Dictated By: CHRISTOPHER NAVA/CHRISSIE Conf#: [id number] DID#: [id number]
[2016-04-29] VITALS (12 sets, daily range): BP systolic 121–180; BP diastolic 50–83; PULSE 75–89; RESP 16–18
[2016-04-29] MEDS: HYDROmorphONE 2 MG/ML SYG IV PRN ×3 (04:17→22:34)
[2016-04-29 05:57] LABS: BASOPHIL # 0.1 10^3/ul (0.0-0.1); BASOPHILS % 0.9 % (0.0-2.0); EOSINOPHILS # 0.4 10^3/ul (0.0-0.5); EOSINOPHILS % 6.9 % (0.0-7.0); HEMATOCRIT 37.5 % (37.0-47.0); HEMOGLOBIN 13.1 g/dl (12.0-16.0); LYMPHOCYTES # 1.2 10^3/ul (0.8-2.9); LYMPHOCYTES % 19.6 % (15.0-51.0); MEAN CORPUSCULAR HEMOGLOBIN 32.3 pg (29.0-33.0); MEAN CORPUSCULAR HGB CONC 34.8 g/dl (32.0-37.0); MEAN PLATELET VOLUME 8.3 fl (7.4-10.4); MONOCYTE # 0.5 10^3/ul (0.3-0.9); MONOCYTES % 8.2 % (0.0-11.0); NEUTROPHIL # 4.1 10^3/ul (1.6-7.5); NEUTROPHILS % 64.4 % (39.0-77.0); PLATELET COUNT 212 10^3/UL (140-440); RED BLOOD COUNT 4.04 10^6/ul (4.20-5.40); UNCORRECTED WBC 6.4 10^3/ul (4.8-10.8); WHITE BLOOD COUNT 6.4 10^3/ul (4.8-10.8)
[2016-04-29 06:02] LABS: CONDITION 1
[2016-04-29 06:05] LABS: POTASSIUM 4.9 mmol/L (3.5-5.1)
[2016-04-29 06:08] LABS: CREATININE 0.62 mg/dl (0.44-1.00)
[2016-04-29] MEDS: LEVALBUTEROL (NEB) 0.63 MG/3 ML AMP HHN SCH ×3 (08:04→20:57)
[2016-04-29] MEDS: ONDANSETRON 4 MG INJ IV PRN (08:33)
[2016-04-29] MEDS: AZTREONAM 2 GM in SOD CHLORIDE 0.9% 100 ML IVPB SCH ×2 (08:42→21:35)
[2016-04-29] MEDS: morphine (ER) 30 MG TAB PO SCH ×2 (09:00→21:35)
[2016-04-29] MEDS ORDERED: SOD CHLORIDE 0.9% 500 ML ONE (09:37)
[2016-04-29] MEDS ORDERED: LIDOCAINE 1% (MDV) 20 ML INJ ONE (09:37)
[2016-04-29] MEDS ORDERED: MIDAZOLAM 1 MG/ML 2 ML INJ ONE ×2 (09:37→10:37)
[2016-04-29] MEDS ORDERED: FENTAnyl 50 MCG/ML VIAL ONE (09:37)
[2016-04-29] MEDS: CHOLECALCIFEROL 2,000 UNIT CAP PO SCH (09:41)
[2016-04-29] MEDS: MAGNESIUM OXIDE 400 MG TAB PO SCH (09:42)
[2016-04-29] MEDS: MULTIVITAMINS THERAPEUTIC TAB PO SCH (09:42)
[2016-04-29] MEDS: DOCUSATE SODIUM 100 MG CAP PO SCH ×2 (09:42→21:35)
[2016-04-29] MEDS: CELECOXIB 200 MG CAP PO SCH (09:42)
[2016-04-29] MEDS: ANASTROZOLE 1 MG TAB PO SCH (09:44)
--- NOTE | 2016-04-29 09:50 | CONS ---
DATE OF ADMISSION: 04/25/2016 DATE OF CONSULTATION: 04/29/2016 TYPE OF CONSULTATION: Oncology progress note. HISTORY OF PRESENT ILLNESS: The patient is experiencing some shortness of breath. She denies chest pain, no cough, no hemoptysis. She does not complain of orthopnea or PND. PHYSICAL EXAMINATION VITAL SIGNS: Temperature 98.6, pulse 80 per minute and regular, respirations 20, blood pressure is 156/74, pulse oximetry 94% on 1 liter of oxygen by nasal cannula. SKIN: No ecchymosis, no petechiae or rashes. HEENT: No mucosal lesions. No scleral icterus. There is nasal oxygen in place. NECK: There is some jugular venous distention. CHEST: Decreased breath sounds throughout, with minimal rales in the left base. No rubs. HEART: Regular sinus rhythm, no S3, S4 or murmurs. ABDOMEN: Soft, no masses, no ascites. EXTREMITIES: No clubbing or cyanosis. There is trace pedal edema. No presacral edema is noted. NEUROLOGIC: Normal. LABORATORY DATA: CA 27-29 is 32. CEA is 147. Protime 13.4 seconds, INR 1.02, PTT 31.7 seconds. ASSESSMENT: 1. Left chest mass, probable primary lung cancer. 2. Stage I breast carcinoma. PLAN: The patient is to have a CT-guided needle biopsy of the left lung mass. Further decisions re garding treatment will depend upon results of this biopsy and further staging which will likely be n ecessary. Dictated By: CLARISSA DE PAZ MD SR/NTS Conf#: [id number] DID#: [id number]
--- NOTE | 2016-04-29 13:15 | RADRPT ---
PROCEDURE: Ultrasound guidance for placement of needle in left upper extremity vein. CLINICAL INDICATION: Venous access. TECHNIQUE: Limited sonography of the left upper extremity was performed. Ultrasound images were recorded and s tored in the patient's medical record. COMPARISON: None. FINDINGS: The ultrasound images demonstrate a patent left upper extremity vein. The PICC line was inserted by the PICC line nurse. IMPRESSION: 1. Ultrasound guidance for a needle placement in a left upper extremity vein. 2. The left upper extremity vein is patent. RPTAT: QQ .Abisai Mauricio MD, MD Date Time Electronically viewed and signed by .Abisai Mauricio MD, MD on 04/29/2016 13:15 .R/
--- NOTE | 2016-04-29 13:21 | RADRPT ---
PROCEDURE: XR Chest. CLINICAL INDICATION: PICC line placement TECHNIQUE: Chest AP portable. COMPARISON: 04/25/2016 FINDINGS: Left arm PICC line with tip in mid superior vena cava The mediastinal structures are unremarkable. There is calcification of the thoracic aorta (consiste nt with atherosclerosis). The heart is normal in size and configuration. The pulmonary vascularity i s normal. There is marked hyperinflation. There are a LLL and RLL patchy consolidations (left greate r than right). There is a small left pleural effusion. There are senescent changes of the axial sk eleton. IMPRESSION: Calcification of the thoracic aorta (consistent with atherosclerosis) Marked hyperinflation LLL and RLL patchy consolidations (left greater than right) Small left pleural effusion RPTAT: HGDB .Nick Riddle MD, Date Time Electronically viewed and signed by .Nick Riddle MD, on 04/29/2016 13:20 .B/
--- NOTE | 2016-04-29 16:48 | RADRPT ---
PROCEDURE: CT guided biopsy of left lung mass. CLINICAL INDICATION: Left lower lobe lung mass. TECHNIQUE: Prior to the procedure, informed consent was obtained. Risks including bleeding, infec tion, and pneumothorax were explained to the patient. The patient understood was willing to proceed . A procedural pause was performed. The patient's name, date of , and procedure to be perform ed were verified. Using local anesthetic, sterile technique, and CT guidance, a 20-gauge automated core biopsy needle was used to biopsy the mass in the left lower lobe. Multiple passes were made. Adequate tissue was obtained according to the pathologist present during the procedure. The needle was removed. A pos t biopsy scan was performed. The patient tolerated the procedure well. One or more of the followin g dose reduction techniques were used: Automated exposure control, adjustment of the mA and/or kV ac cording to patient size, use of iterative reconstruction technique. COMPARISON: CT scan of the chest dated 04/25/2016. FINDINGS: Images with the needle in place demonstrate the needle at the posterior margin of the lesion in ques tion. Post biopsy images demonstrate no immediate complication. IMPRESSION: 1. Satisfactory CT guided biopsy of the left lower lobe lung mass. RPTAT: QQ .Abisai Mauricio MD, MD Date Time Electronically viewed and signed by .Abisai Mauricio MD, MD on 04/29/2016 16:48 .R/
--- NOTE | 2016-04-29 19:54 | PN ---
DATE: 04/29/2016 SUBJECTIVE: The patient awake, alert, status post needle biopsy. OBJECTIVE: VITAL SIGNS: Temperature 98.6, blood pressure 148/65, pulse of 89, respiration rate 18, O2 saturation 98% on 2 L nasal cannula. HEENT: Pupils equal, round, reactive to light. Oropharynx clear. CHEST: Left basilar crackles, unchanged. CARDIAC: Regular rate and rhythm. ABDOMEN: Active bowel sounds. Soft, nondistended, nontender. EXTREMITIES: No clubbing, cyanosis or edema. LABORATORY DATA: WBC 6.4, hemoglobin 13.1, hematocrit 37.5, platelet count 212, 000. Sodium 141, potassium 4.9, BUN 12, creatinine 0.62, glucose 90. The patient's EKG shows anterior septal infarct of an indeterminate age. Per echocardiogram shows hypodynamic left ventricular systolic function and abnormal diastolic function with reduced ventricular cavity size, mild enlargement of right ventricle with borderline right ventricular hypertrophy. There is normal left ventricular wall thickness. ASSESSMENT AND PLAN: 1. Left lung mass, status post needle biopsy guided by CT scan. Await pathology, and further workup or staging depending on the pathology report. 2. Hypertensive heart disease- continue blood pressure meds. 3. Other problems, continue current medicines. Dictated By: FERNIE BONE MD DP/NTS Conf#: [id number] DID#: [id number] MTDD
[2016-04-30] MEDS: LEVALBUTEROL (NEB) 0.63 MG/3 ML AMP HHN SCH ×3 (00:14→16:01)
[2016-04-30] MEDS: HYDROmorphONE 2 MG/ML SYG IV PRN ×3 (02:33→13:31)
[2016-04-30] MEDS ORDERED: HYDROmorphONE 2 MG/ML SYG IV STA (04:39)
[2016-04-30 05:40] LABS: BASOPHILS % 0.3 % (0.0-2.0); EOSINOPHILS # 0.2 10^3/ul (0.0-0.5); EOSINOPHILS % 3.1 % (0.0-7.0); HEMATOCRIT 30.3 % (37.0-47.0); LYMPHOCYTES # 0.8 10^3/ul (0.8-2.9); LYMPHOCYTES % 10.5 % (15.0-51.0); MEAN CORPUSCULAR HEMOGLOBIN 31.8 pg (29.0-33.0); MEAN CORPUSCULAR HGB CONC 33.2 g/dl (32.0-37.0); MEAN CORPUSCULAR VOLUME 95.7 fl (82.0-101.0); MEAN PLATELET VOLUME 8.1 fl (7.4-10.4); MONOCYTE # 0.5 10^3/ul (0.3-0.9); MONOCYTES % 6.5 % (0.0-11.0); NEUTROPHIL # 5.7 10^3/ul (1.6-7.5); NEUTROPHILS % 79.6 % (39.0-77.0); PLATELET COUNT 193 10^3/UL (140-440); RED BLOOD COUNT 3.16 10^6/ul (4.20-5.40); RED CELL DISTRIBUTION WIDTH 12.9 % (11.5-14.5); UNCORRECTED WBC 7.2 10^3/ul (4.8-10.8); WHITE BLOOD COUNT 7.2 10^3/ul (4.8-10.8)
[2016-04-30 06:02] LABS: CONDITION 1
[2016-04-30 06:04] LABS: ALBUMIN 2.8 g/dl (3.3-4.9)
[2016-04-30 06:05] LABS: POTASSIUM 4.1 mmol/L (3.5-5.1)
[2016-04-30 06:07] LABS: CREATININE 0.53 mg/dl (0.44-1.00)
[2016-04-30 06:08] LABS: ALBUMIN/GLOBULIN RATIO 1.03; CALCIUM 7.7 mg/dl (8.4-10.2); TOTAL PROTEIN 5.5 g/dl (6.1-8.1)
[2016-04-30 07:38] VITALS: BP 136/84; RESP 18
[2016-04-30 08:09] VITALS: RESP 18
[2016-04-30] MEDS: DOCUSATE SODIUM 100 MG CAP PO SCH ×2 (09:08→21:38)
[2016-04-30] MEDS: MULTIVITAMINS THERAPEUTIC TAB PO SCH (09:08)
[2016-04-30] MEDS: CELECOXIB 200 MG CAP PO SCH (09:08)
[2016-04-30] MEDS: MAGNESIUM OXIDE 400 MG TAB PO SCH (09:08)
[2016-04-30] MEDS: CHOLECALCIFEROL 2,000 UNIT CAP PO SCH (09:08)
[2016-04-30] MEDS: morphine (ER) 30 MG TAB PO SCH ×2 (09:09→21:38)
[2016-04-30] MEDS: ANASTROZOLE 1 MG TAB PO SCH (09:36)
[2016-04-30] MEDS: AZTREONAM 2 GM in SOD CHLORIDE 0.9% 100 ML IVPB SCH (09:49)
--- NOTE | 2016-04-30 13:06 | PN ---
Date/Time of Note Date/Time of Note DATE: 04/30/16 TIME: 13:02 Assessment/Plan VTE Prophylaxis VTE Prophylaxis Intervention: other (per primary) Lines/Catheters IV Catheter Type (from Nrs): PICC Line Central line still needed: Yes Urinary Cath still in place: No Assessment/Plan Assessment/Plan Pathology results from yesterday are pending. We will f/u tomorrow but if this is lung cancer, the EGFR, PD-L1 and ALK results may be very important to get before treatment plans are made. Subjective 24 Hr Interval Summary Free Text/Dictation Pt c/o difficulty with pain at night especially. Is comfortable now. Exam/Review of Systems Vital Signs Vitals Vital Signs Date Time Temp Pulse Resp B/P Pulse Ox O2 Delivery O2 Flow Rate FiO2 04/30/16 08:47 98 20 04/30/16 08:47 2.0 04/30/16 08:09 93 Nasal Cannula 04/30/16 07:38 98.5 136/84 04/30/16 00:16 21 Intake and Output 04/29/16 04/29/16 04/30/16 15:00 23:00 07:00 Intake Total 350 ml 1140 ml 720 ml Balance 350 ml 1140 ml 720 ml Exam Constitutional: alert, oriented Head: normocephalic, other (cachectic) Respiratory: clear to auscultation Cardiovascular: regular rate and rhythm Gastrointestinal: non-tender, soft Results Result Diagram: 04/30/16 0452 04/30/16 0456 Results 24 hrs Laboratory Tests Test 04/30/16 04:52 04/30/16 04:56 Basophils # 0.0 Basophils % 0.3 Eosinophils # 0.2 Eosinophils % 3.1 Hematocrit 30.3 L Hemoglobin 10.0 #L Lymphocytes # 0.8 Lymphocytes % 10.5 L Mean Corpuscular Hemoglobin 31.8 Mean Corpuscular Hemoglobin Concent 33.2 Mean Corpuscular Volume 95.7 Mean Platelet Volume 8.1 Monocytes # 0.5 Monocytes % 6.5 Neutrophils # 5.7 Neutrophils % 79.6 H Nucleated Red Blood Cells # 0.0 Nucleated Red Blood Cells % 0.0 Platelet Count 193 Red Blood Count 3.16 #L Red Cell Distribution Width 12.9 White Blood Count 7.2 Alanine Aminotransferase (ALT/SGPT) 30 Albumin 2.8 L Albumin/Globulin Ratio 1.03 Alkaline Phosphatase 66 Anion Gap 11 Aspartate Amino Transf (AST/SGOT) 30 Blood Urea Nitrogen 15 Calcium Level 7.7 L Carbon Dioxide Level 28 Chloride Level 106 Creatinine 0.53 Direct Bilirubin 0.00 Globulin 2.70 Glucose Level 90 Indirect Bilirubin 0.0 Potassium Level 4.1 Sodium Level 141 Total Bilirubin 0.0 L Total Protein 5.5 L Medications Medications Current Medications Anastrozole (Arimidex) 1 mg DAILY PO Last administered on 04/30/16 09:36; Admin Dose 1 MG; Start 04/26/16 at 09:00 Celecoxib (Celebrex) 400 mg DAILY PO Last administered on 04/30/16 09:08; Admin Dose 400 MG; Start 04/26/16 at 09:00 Cholecalciferol (Vitamin D) 2,000 unit DAILY PO Last administered on 04/30/16 09:08; Admin Dose 2,000 UNIT; Start 04/26/16 at 09:00 Magnesium Oxide (Mag-Ox 400) 400 mg DAILY PO Last administered on 04/30/16 09: 08; Admin Dose 400 MG; Start 04/26/16 at 09:00 Morphine Sulfate (Ms Contin (Er)) 30 mg Q12 PO Last administered on 04/30/16 09:09; Admin Dose 30 MG; Start 04/26/16 at 09:00 Multivitamins Therapeutic 1 tab 1 tab DAILY PO Last administered on 04/30/16 09:08; Admin Dose 1 TAB; Start 04/26/16 at 09:00 Aztreonam/Sodium Chloride (Azactam/NS) 100 ml @ 100 mls/hr Q12 IVPB Last administered on 04/30/16 09:49; Admin Dose 100 MLS/HR; Start 04/26/16 at 09:00 Ondansetron HCl (Zofran Inj) 4 mg Q4H PRN IV NAUSEA AND/OR VOMITING Last administered on 04/29/16 08:33; Admin Dose 4 MG; Start 04/25/16 at 23:00 Zolpidem Tartrate (Ambien) 5 mg HS PRN PO INSOMNIA; Start 04/25/16 at 23:00 Clonidine (Catapres) 0.1 mg Q6H PRN PO sbp>160; Start 04/25/16 at 23:00 Hydromorphone HCl (Dilaudid) 2 mg Q4H PRN IV PAIN Last administered on 09:09; Admin Dose 2 MG; Start 04/26/16 at 01:30 Diphenhydramine HCl (Benadryl) 25 mg Q6H PRN IV ITCHING Last administered on 17:29; Admin Dose 25 MG; Start 04/26/16 at 17:00 Docusate Sodium (Colace) 100 mg BID PO Last administered on 04/30/16 09:08; Admin Dose 100 MG; Start 04/26/16 at 21:00 IV Flush (NS 10 ml) 10 ml PRN PRN IV IV PROTOCOL; Start 04/29/16 at 13:00 CESARIO KAUR MD Apr 30, 2016 13:06
--- NOTE | 2016-04-30 17:01 | RADRPT ---
PROCEDURE: XR Chest. CLINICAL INDICATION: Shortness of breath. Post lung biopsy. TECHNIQUE: Two views. Frontal inspiration and frontal expiration. COMPARISON: 04/29/2016. FINDINGS: There is a left arm PICC line with the tip in the lower superior vena cava, unchanged. There is ate lectasis at the lung bases. The left lower lobe mass is faintly visualized. The heart size is normal. There is calcification in the aorta consistent with atherosclerosis. There is no pleural effusion. There is no pneumothorax. IMPRESSION: 1. No pneumothorax following left lung biopsy. 2. Atelectasis at the lung bases, worse than seen previously. 3. Left lower lobe lung mass faintly visualized. RPTAT: QQ .Abisai Mauricio MD, MD Date Time Electronically viewed and signed by .Abisai Mauricio MD, MD on 04/30/2016 17:01 .R/
[2016-04-30] MEDS: ONDANSETRON 4 MG INJ IV PRN (17:24)
[2016-04-30 19:42] VITALS: BP 141/66; RESP 18
--- NOTE | 2016-04-30 19:51 | PN ---
DATE: 04/30/2016 SUBJECTIVE: This patient is awake, alert. Reports that she vomited all her breakfast earlier today so now is not willing to eat lunch or dinner. She denies constipation and has had 4 small bowel movements since admission. The patient is not certain if this correlates with the administration of Dilaudid or not, but she does report that this alleviates her pain compared to other medications and she definitely has known history of severe nausea and vomiting due to CODEINE, HYDROCODONE and OXYCODONE. OBJECTIVE: VITAL SIGNS: Temperature 98.4, blood pressure 136/84, pulse of 98 to 109, O2 saturation 93%, but was as low as 80% on room air. HEENT: Pupils equally round, reactive to light. Oropharynx clear. CHEST: Lungs still have some left basilar crackles. CARDIAC: Regular rate and rhythm, normal S1, S2. ABDOMEN: Active bowel sounds, but mildly distended and nontender abdomen. EXTREMITIES: No clubbing, cyanosis, or edema. LABORATORY DATA: WBC 7.2, hemoglobin 10.0, hematocrit 30.3, platelet count 193, 000. Sodium 141, potassium 4.1, BUN 15, creatinine 0.53, glucose 90. Liver enzymes are within normal limits. Chest x-ray this morning shows no pneumothorax following the left lung biopsy. There is atelectasis at the lung base which appears to be worse than before and left lower lung mass is faintly visualized. ASSESSMENT AND PLAN: 1. Left basilar nodule status post lung biopsy. Pathology is still pending. The repeat CT scan was not suggestive of ongoing pneumonitis, so I will discontinue the intravenous antibiotics, particularly since her blood cultures have been negative for the past 4 days and the WBC has been normal. 2. Nausea, vomiting. Unclear if this is due to new onset abdominal issues or if due to side effects from medications. We will try to discontinue antibiotic at this time and administer Zofran together with Dilaudid for her pain control, but I will need to work up to see if there is any evidence of abdominal metastatic disease such as lymphadenopathy or liver mets. Ideally, we should do a CT scan for this but since patient has had 2 [address] scans during this hospital admission already, I will try and see if we can see anything on an ultrasound first since this is a lot less radiation exposure for her. If the abdominal ultrasound is not helpful, then we will go ahead and obtain an abdominal pelvic CT scan. Dictated By: FERNIE BONE MD DP/CHRISSIE Conf#: [id number] [facility]#: [id number] MTDD
[2016-04-30] MEDS: POTASSIUM CHLORIDE 10 MEQ in DEXTROSE 5%-0.9% NACL 1,000 ML IV SCH (21:54)
--- NOTE | 2016-04-30 23:52 | RADRPT ---
PROCEDURE: US Abdomen and Retroperitoneum. CLINICAL INDICATION: Breast and lung cancer. Nausea and vomiting. TECHNIQUE: Multiple real-time longitudinal and transverse images were acquired of the patient's ab domen and retroperitoneum utilizing a curved array transducer. COMPARISON: No prior studies are available for comparison. FINDINGS: The liver is normal in size and echogenicity. The liver has a normal smooth surface. There is no fo renata hepatic lesion. Color Doppler and pulsed Doppler sonography demonstrate normal antegrade flow in the portal vein. The gallbladder is not visualized indicating it may be surgically absent. The intrahepatic bile ducts are not dilated. The common bile duct is not visualized. The spleen is normal in size. There is no focal splenic lesion. The pancreas is not well seen due to overlying bowel gas. There is no ascites. There are bilateral pleural effusions. The right kidney measures 9.6 x 3.0 x 4.3 cm and the left kidney measures 8.2 x 3.0 x 4.3 cm. There is no renal mass. There is mild right hydronephrosis with no obstructing lesion visualized. There is no left hydronep hrosis. The abdominal aorta is not dilated. The inferior vena cava is dilated measuring 2.8 cm. IMPRESSION: 1. Gallbladder not visualized indicating it may be surgically absent. 2. Common bile duct not visualized. 3. Pancreas not well seen due to overlying bowel gas. 4. Bilateral pleural effusions. 5. Mild right hydronephrosis with no obstructing lesion visualized. 6. Dilated inferior vena cava. This may be due to right heart failure or tricuspid insufficiency. 7. Otherwise unremarkable study. RPTAT: QQ .Abisai Mauricio MD, MD Date Time Electronically viewed and signed by .Abisai Mauricio MD, MD on 04/30/2016 23:52 .R/
[2016-05-01] MEDS: LEVALBUTEROL (NEB) 0.63 MG/3 ML AMP HHN SCH ×4 (00:49→23:43)
[2016-05-01] MEDS: HYDROmorphONE 2 MG/ML SYG IV PRN ×3 (05:59→16:21)
[2016-05-01 06:21] LABS: BASOPHILS % 0.7 % (0.0-2.0); EOSINOPHILS # 0.2 10^3/ul (0.0-0.5); HEMATOCRIT 33.3 % (37.0-47.0); HEMOGLOBIN 11.2 g/dl (12.0-16.0); LYMPHOCYTES # 0.8 10^3/ul (0.8-2.9); LYMPHOCYTES % 13.6 % (15.0-51.0); MEAN CORPUSCULAR HEMOGLOBIN 31.8 pg (29.0-33.0); MEAN CORPUSCULAR HGB CONC 33.5 g/dl (32.0-37.0); MEAN CORPUSCULAR VOLUME 94.7 fl (82.0-101.0); MEAN PLATELET VOLUME 8.4 fl (7.4-10.4); MONOCYTE # 0.6 10^3/ul (0.3-0.9); MONOCYTES % 10.2 % (0.0-11.0); NEUTROPHIL # 4.5 10^3/ul (1.6-7.5); NEUTROPHILS % 72.5 % (39.0-77.0); PLATELET COUNT 204 10^3/UL (140-440); RED BLOOD COUNT 3.51 10^6/ul (4.20-5.40); RED CELL DISTRIBUTION WIDTH 13.1 % (11.5-14.5); UNCORRECTED WBC 6.2 10^3/ul (4.8-10.8); WHITE BLOOD COUNT 6.2 10^3/ul (4.8-10.8)
[2016-05-01 06:40] LABS: CONDITION 1
[2016-05-01 06:58] LABS: POTASSIUM 5.5 mmol/L (3.5-5.1)
[2016-05-01 07:00] LABS: CREATININE 0.58 mg/dl (0.44-1.00)
[2016-05-01 07:01] LABS: CALCIUM 7.6 mg/dl (8.4-10.2)
[2016-05-01 07:02] LABS: MAGNESIUM 2.4 mg/dl (1.7-2.5)
[2016-05-01 08:23] VITALS: BP 129/81; RESP 18
[2016-05-01] MEDS: morphine (ER) 30 MG TAB PO SCH ×3 (08:48→22:12)
[2016-05-01] MEDS: CELECOXIB 200 MG CAP PO SCH (08:48)
[2016-05-01] MEDS: CHOLECALCIFEROL 2,000 UNIT CAP PO SCH (08:49)
[2016-05-01] MEDS: DOCUSATE SODIUM 100 MG CAP PO SCH ×2 (08:49→22:12)
[2016-05-01] MEDS: MAGNESIUM OXIDE 400 MG TAB PO SCH (08:49)
[2016-05-01] MEDS: MULTIVITAMINS THERAPEUTIC TAB PO SCH (08:49)
[2016-05-01] MEDS ORDERED: VITAMIN A & D 5 GM OINT PACKET TOP ONE (09:10)
[2016-05-01] MEDS: ANASTROZOLE 1 MG TAB PO SCH (10:10)
--- NOTE | 2016-05-01 11:22 | CONS ---
DATE OF ADMISSION: 04/25/2016 DATE OF CONSULTATION: 05/01/2016 TYPE OF CONSULTATION: Oncology consultation. HISTORY OF PRESENT ILLNESS: The patient had episodes of nausea and vomiting yesterday after eating. This has resolved. She does not complain of abdominal pain or cramping. The patient has not had any increase in shortness of breath or chest pain. OBJECTIVE: VITAL SIGNS: Temperature 98, pulse 90 per minute and regular, respirations 16, blood pressure 140/6 6, pulse oximetry is 93% on 3 liters of oxygen by nasal cannula. SKIN: No ecchymosis, no petechiae or rashes. HEENT: No mucosal lesions. No scleral icterus. NECK: Supple, no jugular venous distention or thyroid enlargement. CHEST: There are decreased breath sounds in both bases with minimal rales heard at right base. NODES: No palpable lymphadenopathy. ABDOMEN: Soft, no masses, no ascites. EXTREMITIES: No clubbing or cyanosis. There is a PICC line in place in the patient's left bicipita l area. NEUROLOGIC: Normal. PATHOLOGY : Biopsy results are pending. The patient did have an ultrasound of the abdomen done after episode of nausea and vomiting yesterda y. This shows nonvisualization of the gallbladder. The liver itself was normal. Spleen is normal. There were no masses noted, liver or spleen. There was mild right hydronephrosis with no obstruct ing lesion visualized. ASSESSMENT: 1. Left lower lobe mass, probable primary lung carcinoma. 2. Stage I breast carcinoma. PLAN: Await results of today's results of biopsy which should be available later this morning. If t his is a lung carcinoma, will obtain further genomic testing including EGFR mutation, ALK and ROS-1 mutation as well as PD-L1 testing. As previously noted, I do feel the patient will require a PET CT scan for further staging. Dictated By: CLARISSA DE PAZ MD SR/NTS Conf#: [id number] DID#: [id number]
[2016-05-01] MEDS: POTASSIUM CHLORIDE 10 MEQ in DEXTROSE 5%-0.9% NACL 1,000 ML IV SCH (12:53)
[2016-05-01 19:45] VITALS: BP 128/70; RESP 18
--- NOTE | 2016-05-01 23:17 | PN ---
DATE: 05/01/2016 SUBJECTIVE: The patient reports no nausea and vomiting today, but she has been getting Zofran with her Dilaudid. However, patient complains of severe weakness and has a hard time making it from her bed to the bathroom on her own. OBJECTIVE: VITAL SIGNS: Temperature 98.3, blood pressure 128/70, pulse of 79, respiration rate 18, O2 saturati on 98% on 3 liters nasal cannula. HEENT: Pupils equally round, reactive to light. Oropharynx clear. LUNGS: Bibasilar rales, left greater than right. ABDOMEN: Active bowel sounds. Mild diffuse tenderness. No rebound or guarding. EXTREMITIES: No clubbing, cyanosis, or edema. LABORATORY DATA: WBC 6.2, hemoglobin 11.2, hematocrit 33.3, platelet count 204,000. Sodium 141, po tassium 5.5, chloride 108, bicarb 30, BUN 17, creatinine 0.58, glucose 244. Abdominal ultrasound shows normal liver in size and echogenicity without focal hepatic lesions. Non visualized gallbladder and common bile duct. Pancreas not well seen. There are bilateral pleural e ffusions and mild right hydronephrosis. Pathology report of the lung biopsy shows adenocarcinoma of the lung, moderately to poorly different iated. Further supplemental reports of results to follow. ASSESSMENT AND PLAN: 1. Left lower lobe lesion consistent with primary lung cancer at this point. Further treatment roxy n per Dr. Cordova. The patient seems to be having increased shortness of breath at this time. Uncl ear if this is due to IV fluid that we started her yesterday due to nausea, vomiting. Since patient 's potassium is high today, we will discontinue IV fluid, recheck a chest x-ray tomorrow, recheck po tassium tomorrow, and consider IV Lasix if necessary since the ultrasound is suggestive of bibasilar pleural effusions in the lungs, which was not reported on the CT of the chest on admission. 2. Weakness. The patient is extremely undernourished and underweight. Her current weakness may ju st be due to the recent nausea and vomiting, which may be attributed to the antibiotics that she was given or the pain medications. However, congestive heart failure and neoplastic cachexia should al so be taken into consideration. We will attempt to treat and evaluate for possible fluid overload c ausing hypoxia, but at the same time, we will have physical therapy evaluate the patient to see whet her she can be discharged to home once her potassium and hypoxia has improved. Dictated By: FERNIE RENDON/CHRISSIE Conf#: [id number] DID#: [id number]
[2016-05-02] MEDS: HYDROmorphONE 2 MG/ML SYG IV PRN ×3 (01:45→14:44)
[2016-05-02 05:41] LABS: BASOPHILS % 0.3 % (0.0-2.0); EOSINOPHILS # 0.3 10^3/ul (0.0-0.5); EOSINOPHILS % 4.7 % (0.0-7.0); HEMATOCRIT 33.1 % (37.0-47.0); LYMPHOCYTES # 0.7 10^3/ul (0.8-2.9); LYMPHOCYTES % 11.2 % (15.0-51.0); MEAN CORPUSCULAR HGB CONC 33.4 g/dl (32.0-37.0); MEAN PLATELET VOLUME 8.6 fl (7.4-10.4); MONOCYTE # 0.6 10^3/ul (0.3-0.9); MONOCYTES % 10.5 % (0.0-11.0); NEUTROPHIL # 4.4 10^3/ul (1.6-7.5); NEUTROPHILS % 73.3 % (39.0-77.0); PLATELET COUNT 208 10^3/UL (140-440); RED BLOOD COUNT 3.44 10^6/ul (4.20-5.40); UNCORRECTED WBC 5.9 10^3/ul (4.8-10.8); WHITE BLOOD COUNT 5.9 10^3/ul (4.8-10.8)
[2016-05-02 06:18] LABS: CREATININE 0.61 mg/dl (0.44-1.00)
[2016-05-02 06:19] LABS: CALCIUM 8.2 mg/dl (8.4-10.2)
[2016-05-02 06:57] LABS: CONDITION 1
[2016-05-02 07:29] VITALS: BP 130/81; RESP 16
--- NOTE | 2016-05-02 08:25 | PN ---
Date/Time of Note Date/Time of Note DATE: 05/02/16 TIME: 08:21 Assessment/Plan VTE Prophylaxis VTE Prophylaxis Intervention: other (per primary MD) Lines/Catheters IV Catheter Type (from Nrsg): PICC Line Central line still needed: Yes Urinary Cath still in place: No Assessment/Plan Assessment/Plan Path consistent with adenocarcinoma of the lung. EGFR, PD L1, ALK and ROS are pending. PET scan would be done as outpatient. I do not think that she is a surgical candidate. I would try to address her chronic pain issues and then treatment plans can be addressed. If studies like EGFR are positive, oral therapy could be used, which would be easier for her. Subjective 24 Hr Interval Summary Free Text/Dictation Pt c/o fatigue, intermittent nausea and chronic pain that is about the same. Exam/Review of Systems Vital Signs Vitals Vital Signs Date Time Temp Pulse Resp B/P Pulse Ox O2 Delivery O2 Flow Rate FiO2 05/02/16 07:29 98.6 88 16 130/81 98 05/01/16 23:44 Nasal Cannula 3.0 05/01/16 14:50 32 Intake and Output 05/01/16 05/01/16 05/02/16 15:00 23:00 07:00 Intake Total 1180 ml 1065 ml Balance 1180 ml 1065 ml Exam Constitutional: alert, oriented Neck: supple Respiratory: clear to auscultation, diminished breath sounds Cardiovascular: regular rate and rhythm Gastrointestinal: non-tender, soft Extremities: other (decreased muscle mass) Results Result Diagram: 05/02/16 0507 05/02/16 0507 Results 24 hrs Laboratory Tests Test 05/02/16 05:07 Anion Gap 10 Basophils # 0.0 Basophils % 0.3 Blood Urea Nitrogen 22 H Calcium Level 8.2 L Carbon Dioxide Level 32 H Chloride Level 107 Creatinine 0.61 Eosinophils # 0.3 Eosinophils % 4.7 Glucose Level 111 # Hematocrit 33.1 L Hemoglobin 11.0 L Lymphocytes # 0.7 L Lymphocytes % 11.2 L Mean Corpuscular Hemoglobin 32.0 Mean Corpuscular Hemoglobin Concent 33.4 Mean Corpuscular Volume 96.0 Mean Platelet Volume 8.6 Monocytes # 0.6 Monocytes % 10.5 Neutrophils # 4.4 Neutrophils % 73.3 Nucleated Red Blood Cells # 0.0 Nucleated Red Blood Cells % 0.0 Platelet Count 208 Potassium Level 5.0 Red Blood Count 3.44 L Red Cell Distribution Width 13.0 Sodium Level 144 White Blood Count 5.9 Medications Medications Current Medications Anastrozole (Arimidex) 1 mg DAILY PO Last administered on 05/01/16 10:10; Admin Dose 1 MG; Start 04/26/16 at 09:00 Celecoxib (Celebrex) 400 mg DAILY PO Last administered on 05/01/16 08:48; Admin Dose 400 MG; Start 04/26/16 at 09:00 Cholecalciferol (Vitamin D) 2,000 unit DAILY PO Last administered on 05/01/16 08:49; Admin Dose 2,000 UNIT; Start 04/26/16 at 09:00 Magnesium Oxide (Mag-Ox 400) 400 mg DAILY PO Last administered on 05/01/16 08: 49; Admin Dose 400 MG; Start 04/26/16 at 09:00 Morphine Sulfate (Ms Contin (Er)) 30 mg Q12 PO Last administered on 05/01/16 22 :12; Admin Dose 30 MG; Start 04/26/16 at 09:00 Multivitamins Therapeutic (Theragran) 1 tab DAILY PO Last administered on 08:49; Admin Dose 1 TAB; Start 04/26/16 at 09:00 Ondansetron HCl (Zofran Inj) 4 mg Q4H PRN IV NAUSEA AND/OR VOMITING Last administered on 04/30/16 17:24; Admin Dose 4 MG; Start 04/25/16 at 23:00 Zolpidem Tartrate (Ambien) 5 mg HS PRN PO INSOMNIA; Start 04/25/16 at 23:00 Clonidine (Catapres) 0.1 mg Q6H PRN PO sbp>160; Start 04/25/16 at 23:00 Hydromorphone HCl (Dilaudid) 2 mg Q4H PRN IV PAIN Last administered on 01:45; Admin Dose 2 MG; Start 04/26/16 at 01:30 Diphenhydramine HCl (Benadryl) 25 mg Q6H PRN IV ITCHING Last administered on 17:29; Admin Dose 25 MG; Start 04/26/16 at 17:00 Docusate Sodium (Colace) 100 mg BID PO Last administered on 05/01/16 22:12; Admin Dose 100 MG; Start 04/26/16 at 21:00 IV Flush (NS 10 ml) 10 ml PRN PRN IV IV PROTOCOL; Start 04/29/16 at 13:00 CESARIO KAUR MD May 02, 2016 08:25
[2016-05-02] MEDS: DOCUSATE SODIUM 100 MG CAP PO SCH ×3 (08:37→22:00)
[2016-05-02] MEDS: MULTIVITAMINS THERAPEUTIC TAB PO SCH (08:40)
[2016-05-02] MEDS: MAGNESIUM OXIDE 400 MG TAB PO SCH (08:40)
[2016-05-02] MEDS: CELECOXIB 200 MG CAP PO SCH (08:40)
[2016-05-02] MEDS: morphine (ER) 30 MG TAB PO SCH (08:40)
[2016-05-02] MEDS: CHOLECALCIFEROL 2,000 UNIT CAP PO SCH (08:40)
[2016-05-02] MEDS: LEVALBUTEROL (NEB) 0.63 MG/3 ML AMP HHN SCH ×3 (09:11→23:14)
[2016-05-02] MEDS: ANASTROZOLE 1 MG TAB PO SCH (09:14)
[2016-05-02 09:20] LABS: AADO2 Arterial 107.3 mmHg (7.0-24.0); Allen Test ACCEPTAB; Arterial Base Excess 1.7 mmol/L (-3.0-3); Arterial COHb 0.4 % (0.0-3.0); Arterial Fraction of Oxyhgb 60.7 % (93.0-99.0); Arterial HCO3 29.9 mmol/L (22.0-26.0); Arterial MetHb 0.4 % (0.0-1.5); Arterial Total Hemglobin 13.4 g/dl (12.0-18.0); MODE NASAL CANNULA
--- NOTE | 2016-05-02 12:02 | CONS ---
Date/Time of Note Date/Time of Note DATE: 05/02/16 TIME: 11:54 Assessment/Plan Assessment/Plan Additional Assessment/Plan Assessment and recommendations; 1. Patient admitted with nonspecific nausea vomiting with interval resolution. 2. Adenocarcinoma of the left lower lobe. 3. Very poor functional status. 4. Patient based upon examination is not a candidate for surgical resection. However before making this determination patient would need to have a full PFT done as well as a PET scan. Palliative care certainly is an option as well. We will continue current treatment. Prognosis does appear poor. Consultation Date/Type/Reason Admit Date/Time Apr 25, 2016 at 19:37 Date of Consultation: May 02, 2016 Type of Consultation: Pulmonary Reason for Consultation Patient is a 80-year-old pleasant white lady who was admitted on the sixth of last month with complaints of shortness of breath coughing and wheezing the patient was also evaluated on outpatient basis and a chest x-ray was done which showed a left lower lobe infiltrate the patient was put on outpatient antibiotics and a follow-up chest x-ray was done later which did not show any change in the findings later presented to the ER with complaints of nausea vomiting subsequently CT scan of chest was done which showed a large left lower lobe lung mass CT-guided biopsy was done showing adenocarcinoma. Findings are consistent with primary lung malignancy. Patient is feeling a little better now on oxygen. Denies any chest pain. Any cough. Any hemoptysis. Any wheezing. Past medical history AR: Next 1. History of breast cancer next 2. History of COPD 3. History of asthma 4. Hypertension next Medications; were reviewed Allergies; none Social history; no history of any smoking, alcohol or drug abuse. Next Family history; patient is single lives by herself. 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 Review of systems; denies any headache, any visual changes. Does complain of any mild pain at the CT biopsy site of the left chest posteriorly. Has lost weight. Denies any abdominal pain, nausea has resolved denies any vomiting. Complain of shortness of breath on minimal exertion. Wheezing has resolved. Denies any melena, hematochezia. Denies any urinary symptoms. Denies any back pain. Denies any seizures. Next General examination; elderly lady appears quite emaciated currently in no distress. Social History Smoking Status: Former smoker Exam/Review of Systems Vital Signs Vitals Vital Signs Date Time p Pulse Resp B/P Pulse Ox O2 Delivery O2 Flow Rate FiO2 05/02/16 09:13 89 20 92 Nasal Cannula 3.0 32 05/02/16 07:29 98.6 130/81 Intake and Output 05/01/16 05/01/16 05/02/16 15:00 23:00 07:00 Intake Total 1180 ml 1065 ml Balance 1180 ml 1065 ml Exam HEENT examination; supple neck, no JVD. No lymphadenopathy. No thyromegaly. Patient wears partial dentures. Has bilateral surgical pupils. Next Chest examination; diminished but clear breath sounds bilaterally. Nontender chest wall. S1-S2 audible. No murmurs. Regular rate and rhythm. Next Abdomen examination; scaphoid, no organomegaly. Bowel sounds audible. Nontender. Extremity examination; no peripheral edema. No clubbing. FO[employer] P[employer] RE[employer]ER examination; no obvious focal motor deficit. Chest x-ray was reviewed from 04/30/2016 which is showing left lower lobe infiltrate. CT chest was reviewed from 04/25/2016 which is showing a large left lower lobe lung mass which is highly consistent with bronchogenic carcinoma. ABG was reviewed which is likely a venous blood gas. Lungs mass pathology is showing adenocarcinoma. Results Result Diagram: 05/02/16 0507 05/02/16 0507 Results 24 hrs Laboratory Tests Test 05/02/16 05:07 05/02/16 09:00 Anion Gap 10 Basophils # 0.0 Basophils % 0.3 Blood Urea Nitrogen 22 H Calcium Level 8.2 L Carbon Dioxide Level 32 H Chloride Level 107 Creatinine 0.61 Eosinophils # 0.3 Eosinophils % 4.7 Glucose Level 111 # Hematocrit 33.1 L Hemoglobin 11.0 L Lymphocytes # 0.7 L Lymphocytes % 11.2 L Mean Corpuscular Hemoglobin 32.0 Mean Corpuscular Hemoglobin Concent 33.4 Mean Corpuscular Volume 96.0 Mean Platelet Volume 8.6 Monocytes # 0.6 Monocytes % 10.5 Neutrophils # 4.4 Neutrophils % 73.3 Nucleated Red Blood Cells # 0.0 Nucleated Red Blood Cells % 0.0 Platelet Count 208 Potassium Level 5.0 Red Blood Count 3.44 L Red Cell Distribution Width 13.0 Sodium Level 144 White Blood Count 5.9 Arterial Blood HCO3 29.9 H Arterial Blood Base Excess 1.7 Arterial Blood Oxygen Saturation 61.2 L Dany Test ACCEPTAB Arterial Blood Gas Puncture Site Right Radial Arterial Blood Carboxyhemoglobin 0.4 Arterial Blood Date Drawn 05/02/2016 9:00:44 AM Arterial Blood Methemoglobin 0.4 Arterial Blood pCO2 (Temp correct) 64.0 H Arterial Blood pH (Temp corrected) 7.287 *L Arterial Blood pO2 (Temp corrected) 31.4 *L Blood Gas A-a O2 Differential 107.3 H Blood Gas Critical Value Read Back A SHON GAMEZ Blood Gas Modality NASAL CANNULA Blood Gas Notified Time 05/02/2016 9:20:33 AM Blood Gas Notified Whom STEPHEND Blood Gas Specimen Source Blood arterial Blood Gas Temperature 37.0 FiO2 30.0 Oxyhemoglobin Percent 60.7 L Total Hemoglobin 13.4 Medications Medications Current Medications Anastrozole (Arimidex) 1 mg DAILY PO Last administered on 05/02/16 09:14; Admin Dose 1 MG; Start 04/26/16 at 09:00 Celecoxib (Celebrex) 400 mg DAILY PO Last administered on 05/02/16 08:40; Admin Dose 400 MG; Start 04/26/16 at 09:00 Cholecalciferol (Vitamin D) 2,000 unit DAILY PO Last administered on 05/02/16 08:40; Admin Dose 2,000 UNIT; Start 04/26/16 at 09:00 Magnesium Oxide (Mag-Ox 400) 400 mg DAILY PO Last administered on 05/02/16 08: 40; Admin Dose 400 MG; Start 04/26/16 at 09:00 Morphine Sulfate (Ms Contin (Er)) 30 mg Q12 PO Last administered on 05/02/16 08 :40; Admin Dose 30 MG; Start 04/26/16 at 09:00 Multivitamins Therapeutic (Theragran) 1 tab DAILY PO Last administered on 08:40; Admin Dose 1 TAB; Start 04/26/16 at 09:00 Ondansetron HCl (Zofran Inj) 4 mg Q4H PRN IV NAUSEA AND/OR VOMITING Last administered on 04/30/16 17:24; Admin Dose 4 MG; Start 04/25/16 at 23:00 Zolpidem Tartrate (Ambien) 5 mg HS PRN PO INSOMNIA; Start 04/25/16 at 23:00 Clonidine (Catapres) 0.1 mg Q6H PRN PO sbp>160; Start 04/25/16 at 23:00 Hydromorphone HCl (Dilaudid) 2 mg Q4H PRN IV PAIN Last administered on 09:20; Admin Dose 2 MG; Start 04/26/16 at 01:30 Diphenhydramine HCl (Benadryl) 25 mg Q6H PRN IV ITCHING Last administered on 17:29; Admin Dose 25 MG; Start 04/26/16 at 17:00 Docusate Sodium (Colace) 100 mg BID PO Last administered on 05/02/16 08:37; Admin Dose 100 MG; Start 04/26/16 at 21:00 IV Flush (NS 10 ml) 10 ml PRN PRN IV IV PROTOCOL; Start 04/29/16 at 13:00 TRANG HAGAN May 02, 2016 12:02
--- NOTE | 2016-05-02 13:11 | RADRPT ---
PROCEDURE: XR Chest. CLINICAL INDICATION: Shortness of breath. TECHNIQUE: Two views. Frontal inspiration and frontal expiration. COMPARISON: 04/30/2016. FINDINGS: The left arm PICC line remains in satisfactory position with the tip in the lower superior vena cava . There is atelectasis at the lung bases, worse than seen previously. The left lower lobe mass is faintly visualized. The heart size is normal. There is calcification in the aorta consistent with atherosclerosis. There are small bilateral pleural effusions. There is no pneumothorax. IMPRESSION: 1. No pneumothorax following left lung biopsy. 2. Worse appearance of the lung bases. 3. Left arm PICC line in satisfactory position. 4. Atherosclerosis. 5. New small bilateral pleural effusions. 6. Left lower lobe mass is only faintly visualized. RPTAT: QQ .Abisai Mauricio MD, MD Date Time Electronically viewed and signed by .Abisai Mauricio MD, on 05/02/2016 13:10 .R/
[2016-05-02] MEDS ORDERED: FUROSEMIDE 20 MG INJ IV ONE (15:00)
[2016-05-02] MEDS ORDERED: NALOXONE (0.4 MG/ML) INJ IV ONE (19:00)
[2016-05-02 20:00] VITALS: BP 156/84; RESP 18
[2016-05-02 21:56] LABS: AADO2 Arterial 64.3 mmHg (7.0-24.0); Allen Test ACCEPTAB; Arterial Base Excess 3.9 mmol/L (-3.0-3); Arterial COHb 0.2 % (0.0-3.0); Arterial Fraction of Oxyhgb 96.8 % (93.0-99.0); Arterial HCO3 31.5 mmol/L (22.0-26.0); Arterial MetHb 0.2 % (0.0-1.5); Arterial Total Hemglobin 12.9 g/dl (12.0-18.0); MODE NASAL CANNULA
--- NOTE | 2016-05-03 00:52 | PN ---
DATE: 05/02/2016 SUBJECTIVE: Patient appears very sedated and drowsy. She was able to respond to questions but falls asleep easily and was breathing through her mouth. OBJECTIVE: VITAL SIGNS: Temperature 98.3, blood pressure 130/81, pulse of 92 to 94% on 3 liters nasal cannula, but would be in the 50s without the nasal cannula. ABG done earlier in the day showed severe hypoxia and pulmonary consultation was obtained. Dr. Jomar Pennington thought that the ABG was venous gas and pulmonary nodule which was noted to be cancer was not resectable. OBJECTIVE HEENT: Pupils equally round, reactive to light. Oropharynx clear. Pupils appeared to be more constricted than usual. LUNGS: Notable for bibasilar crackles. CARDIAC: Regular rate and rhythm, normal S1, S2. ABDOMEN: Active bowel sounds, soft, nondistended, nontender. EXTREMITIES: No clubbing, cyanosis, or edema. LABORATORY DATA: WBC 5.9, hemoglobin 11.0, hematocrit 33.1, platelet count 208, 000. Sodium 144, potassium 5.0, chloride 107, carbon dioxide 32, BUN 22, creatinine 0.6 and glucose 111. The patient's chest x-ray shows no pneumothorax following left lung biopsy with worse appearances at the lung bases and new small bilateral pleural effusions, faintly visualized left lower lobe mass. The repeat ABG done later on this evening shows a pH of 7.32, pCO2 of 61, pO2 of 98.8, bicarbonate of 31.5 and O2 saturation of 97% on 33 liters FIO2. ASSESSMENT AND PLAN: 1. Severe sedation or altered level of consciousness may be due to IV Dilaudid , but nursing reports the patient had not had any narcotics since 5 or 6 hours prior to evaluation, and that was Dilaudid. She had received a dose of morphine 10 hours prior to evaluation. However, it is possible that she is accumulating opiates in her system, so we will try and reverse it with a Narcan dose. If her mental status does not improve after the Narcan IV dose we will obtain a head CT scan. 2. Hypoxia, most likely due to hypoventilation from sedation which also explained the increased pCO2, but since patient does have evidence of increased fluid in the lungs and we did give her IV fluid the night before due to her nausea, and vomiting. Will give her 1 dose of Lasix today and recheck a chest x -ray in the morning as well as her chem panel. 3. Lung cancer. At this point, will need staging workup and a PET scan, which apparently is obtainable as an outpatient. If patient is too weak and debilitated at this point for discharge to home. Physical therapy tried to evaluate her this morning, but she was too weak. I will discontinue Dilaudid and morphine to see if they can evaluate her tomorrow morning; however, patient has a history of severe low back pain and may have difficulty ambulating even more if her pain is not controlled. The plan is to transfer patient to either rehab or retirement facility if patient is unable to be discharged to home. Dictated By: FERNIE BONE MD DP/CHRISSIE Conf#: [id number] DID#: [id number] MTDD
[2016-05-03 06:05] LABS: BASOPHILS % 0.5 % (0.0-2.0); EOSINOPHILS % 0.4 % (0.0-7.0); HEMATOCRIT 34.7 % (37.0-47.0); HEMOGLOBIN 11.5 g/dl (12.0-16.0); LYMPHOCYTES # 0.8 10^3/ul (0.8-2.9); MEAN CORPUSCULAR HGB CONC 33.2 g/dl (32.0-37.0); MEAN CORPUSCULAR VOLUME 96.1 fl (82.0-101.0); MEAN PLATELET VOLUME 8.4 fl (7.4-10.4); MONOCYTE # 0.6 10^3/ul (0.3-0.9); MONOCYTES % 8.8 % (0.0-11.0); NEUTROPHIL # 5.5 10^3/ul (1.6-7.5); NEUTROPHILS % 78.3 % (39.0-77.0); PLATELET COUNT 253 10^3/UL (140-440); RED BLOOD COUNT 3.61 10^6/ul (4.20-5.40); UNCORRECTED WBC 7.1 10^3/ul (4.8-10.8); WHITE BLOOD COUNT 7.1 10^3/ul (4.8-10.8)
[2016-05-03 06:26] LABS: CREATININE 0.63 mg/dl (0.44-1.00)
[2016-05-03 06:27] LABS: CALCIUM 8.2 mg/dl (8.4-10.2)
[2016-05-03 06:44] LABS: CONDITION 1
[2016-05-03] MEDS: LEVALBUTEROL (NEB) 0.63 MG/3 ML AMP HHN SCH ×2 (07:30→16:00)
[2016-05-03 07:54] VITALS: BP 144/87; RESP 22
--- NOTE | 2016-05-03 08:34 | CONS ---
Date/Time of Note Date/Time of Note DATE: 05/03/16 TIME: 08:31 Consultation Date/Type/Reason Admit Date/Time Apr 25, 2016 at 19:37 Initial Consult Date 05/02/16 Type of Consultation: Pulmonary 24 HR Interval Summary Free Text/Dictation Patient condition is stable. Denies any shortness of breath. Does complain of generalized body pain. Denies any chest pain, any wheezing. General examination elderly, currently in no distress patient appears quite wasted. Exam/Review of Systems Vital Signs Vitals Vital Signs Date Time Temp Pulse Resp B/P Pulse Ox O2 Delivery O2 Flow Rate FiO2 05/03/16 07:54 97.9 98 22 144/87 97 05/03/16 07:30 3.0 05/02/16 23:15 Nasal Cannula 05/02/16 16:27 32 Intake and Output 05/02/16 05/02/16 05/03/16 15:00 23:00 07:00 Intake Total 24 ml 120 ml Output Total 600 ml Balance 24 ml -480 ml Exam HEENT examination; next 1. Patient admitted with nausea vomiting with interval correction. 2. Adenocarcinoma of the left lower lobe of the lung. 3. History of breast cancer. 4. Poor functional status as well as support system. Continue current treatment. Further plan of treatment per oncology recommendation. My Feeling is that patient will not fare well either with any kind of surgery, chemotherapy or radiation and palliative care should be given a strong consideration. We will sign off. Thank for the consult. Results Result Diagram: 05/03/16 0512 05/03/16 0512 Results 24 hrs Laboratory Tests Test 05/02/16 09:00 05/02/16 18:35 05/03/16 05:12 Arterial Blood HCO3 29.9 H 31.5 H Arterial Blood Base Excess 1.7 3.9 H Arterial Blood Oxygen Saturation 61.2 L 97.2 Dany Test ACCEPTAB ACCEPTAB Arterial Blood Gas Puncture Site Right Radial Left Radial Arterial Blood Carboxyhemoglobin 0.4 0.2 Arterial Blood Date Drawn 05/02/2016 9:00:44 AM 05/02/2016 9:44:44 PM Arterial Blood Methemoglobin 0.4 0.2 Arterial Blood pCO2 (Temp correct) 64.0 H 61.8 H Arterial Blood pH (Temp corrected) 7.287 *L 7.325 L Arterial Blood pO2 (Temp corrected) 31.4 *L 98.8 H Blood Gas A-a O2 Differential 107.3 H 64.3 H Blood Gas Critical Value Read Back A SHON GAMEZ Blood Gas Modality NASAL CANNULA NASAL CANNULA Blood Gas Notified Time 05/02/2016 9:20:33 AM 05/02/2016 9:55:30 PM Blood Gas Notified Whom BLANCA C.VLisa Blood Gas Specimen Source Blood arterial Blood arterial Blood Gas Temperature 37.0 37.0 FiO2 30.0 33.0 Oxyhemoglobin Percent 60.7 L 96.8 Total Hemoglobin 13.4 12.9 Blood Gas Actual Respiration Rate 12 Anion Gap 11 Basophils # 0.0 Basophils % 0.5 Blood Urea Nitrogen 24 H Calcium Level 8.2 L Carbon Dioxide Level 34 H Chloride Level 105 Creatinine 0.63 Eosinophils # 0.0 Eosinophils % 0.4 Glucose Level 91 Hematocrit 34.7 L Hemoglobin 11.5 L Lymphocytes # 0.8 Lymphocytes % 12.0 L Mean Corpuscular Hemoglobin 32.0 Mean Corpuscular Hemoglobin Concent 33.2 Mean Corpuscular Volume 96.1 Mean Platelet Volume 8.4 Monocytes # 0.6 Monocytes % 8.8 Neutrophils # 5.5 Neutrophils % 78.3 H Nucleated Red Blood Cells # 0.0 Nucleated Red Blood Cells % 0.0 Platelet Count 253 # Potassium Level 5.0 Red Blood Count 3.61 L Red Cell Distribution Width 13.0 Sodium Level 145 H White Blood Count 7.1 # Medications Medications Current Medications Anastrozole (Arimidex) 1 mg DAILY PO Last administered on 05/02/16 09:14; Admin Dose 1 MG; Start 04/26/16 at 09:00 Celecoxib (Celebrex) 400 mg DAILY PO Last administered on 05/02/16 08:40; Admin Dose 400 MG; Start 04/26/16 at 09:00 Cholecalciferol (Vitamin D) 2,000 unit DAILY PO Last administered on 05/02/16 08:40; Admin Dose 2,000 UNIT; Start 04/26/16 at 09:00 Magnesium Oxide (Mag-Ox 400) 400 mg DAILY PO Last administered on 05/02/16 08: 40; Admin Dose 400 MG; Start 04/26/16 at 09:00 Morphine Sulfate (Ms Contin (Er)) 30 mg Q12 PO Last administered on 05/02/16 08 :40; Admin Dose 30 MG; Start 04/26/16 at 09:00; Status Future Hold Multivitamins Therapeutic (Theragran) 1 tab DAILY PO Last administered on 08:40; Admin Dose 1 TAB; Start 04/26/16 at 09:00 Ondansetron HCl (Zofran Inj) 4 mg Q4H PRN IV NAUSEA AND/OR VOMITING Last administered on 04/30/16 17:24; Admin Dose 4 MG; Start 04/25/16 at 23:00 Zolpidem Tartrate (Ambien) 5 mg HS PRN PO INSOMNIA; Start 04/25/16 at 23:00 Clonidine (Catapres) 0.1 mg Q6H PRN PO sbp>160; Start 04/25/16 at 23:00 Hydromorphone HCl (Dilaudid) 2 mg Q4H PRN IV PAIN Last administered on 14:44; Admin Dose 2 MG; Start 04/26/16 at 01:30; Status Future Hold Diphenhydramine HCl (Benadryl) 25 mg Q6H PRN IV ITCHING Last administered on 17:29; Admin Dose 25 MG; Start 04/26/16 at 17:00 Docusate Sodium (Colace) 100 mg BID PO Last administered on 05/02/16 08:37; Admin Dose 100 MG; Start 04/26/16 at 21:00 IV Flush (NS 10 ml) 10 ml PRN PRN IV IV PROTOCOL; Start 04/29/16 at 13:00 TRANG HAGAN May 03, 2016 08:34
[2016-05-03] MEDS: MAGNESIUM OXIDE 400 MG TAB PO SCH (08:40)
[2016-05-03] MEDS: CELECOXIB 200 MG CAP PO SCH (08:40)
[2016-05-03] MEDS: CHOLECALCIFEROL 2,000 UNIT CAP PO SCH (08:40)
[2016-05-03] MEDS: MULTIVITAMINS THERAPEUTIC TAB PO SCH (08:40)
[2016-05-03] MEDS: ANASTROZOLE 1 MG TAB PO SCH (08:45)
[2016-05-03] MEDS: DOCUSATE SODIUM 100 MG CAP PO SCH ×2 (09:00→22:12)
--- NOTE | 2016-05-03 10:28 | RADRPT ---
PROCEDURE: XR Chest. CLINICAL INDICATION: Shortness of breath. TECHNIQUE: Single frontal view. COMPARISON: 05/02/2016. FINDINGS: The left arm PICC line is in satisfactory and unchanged position. There is atelectasis at the lung bases, slightly improved. The left lower lobe mass is not well seen. The heart size is normal. There is calcification in the aorta consistent with atherosclerosis. There are small bilateral pleural effusions. There is no pneumothorax. IMPRESSION: 1. Slightly improved appearance of the lung bases. 2. No other change from 05/02/2016. RPTAT: QQ .Abisai Mauricio MD, MD Date Time Electronically viewed and signed by .Abisai Mauricio MD, on 05/03/2016 10:27 .R/
--- NOTE | 2016-05-03 10:39 | PN ---
DATE: 05/03/2016 MEDICAL ONCOLOGY PROGRESS NOTE SUBJECTIVE: Ms. Hoskins is unhappy this morning having increasing amounts of pain. The patient appare ntly was given naloxone yesterday. She was sedated, and there was evidence of carbon dioxide retent ion. OBJECTIVE: VITAL SIGNS: Temperature 97.9, pulse 98 per minute and regular, blood pressure 144/87, and pulse ox imetry 97% on 3 or 4 liters of oxygen via nasal cannula. SKIN: No ecchymosis, no petechiae or rashes. HEENT: No mucosal lesions. No scleral icterus. NECK: Supple, no jugular venous distention or thyroid enlargement. CHEST: Decreased breath sounds in both bases with dullness to percussion in the left base. There a re no rubs. HEART: Regular sinus rhythm, no S3, S4, or murmurs. NODES: No palpable lymphadenopathy in lymph node bearing area. ABDOMEN: Soft. No masses or ascites. EXTREMITIES: Good range of motion. No clubbing, edema, or cyanosis. No palpable cords or Homans s ign. NEUROLOGIC: Normal. LABORATORY DATA: White count 7100, hemoglobin 11.5, hematocrit 34.7, and platelet count 253,000. S odium 145, potassium 5, creatinine 0.63, and BUN 24. The biopsy of the lung does demonstrate a nonsmall cell carcinoma which is suggestive of a primary l dick tumor. It is strongly positive for TTF1. The histologic appearance is not similar to the previ ous invasive lobular carcinoma of the lung. This is more consistent with a primary adenocarcinoma o f the lung. Genomic studies have been requested. This includes EGFR mutation, ALK gene rearrangement studies, R OS1 mutation as well as PD-L1 evaluation. ASSESSMENT: 1. Nonsmall cell carcinoma of the lung. 2. History of invasive lobular carcinoma of the breast. 3. CO2 retention, likely due to sedation. PLAN: We will await the results of the genomic studies. This will dictate the patient's therapy. If the patient has PD-L1 greater than 50%, she will then be treated with the checkpoint inhibitor pe mbrolizumab (Keytruda.) If the EGFR is positive and the PD-L1 is less than 50, the patient would th en be treated with tyrosine kinase inhibitor such as imatinib (Tarceva.) If the ALK gene rearrangem ents or ROS1 are positive, then other tyrosine kinase inhibitors will be applicable. If none of the se are positive, the patient will then require chemotherapy likely with combination of pemetrexed an d carboplatin. As previously mentioned, the patient still will require further evaluation for systemic disease whic h could best be accomplished via a PET-CT scan. Unfortunately, this must be done as an outpatient. Dictated By: CLARISSA DE PAZ MD, SR/CHRISSIE Conf#: [id number] DID#: [id number]
--- NOTE | 2016-05-03 12:33 | RADRPT ---
PROCEDURE: US Lower extremity Venous. CLINICAL INDICATION: Pain and swelling. TECHNIQUE: Multiple sonographic images of the bilateral lower extremity deep venous system was obt ained utilizing grayscale, color-flow, compressive sonography and doppler imaging with augmentation. The images were reviewed on a PACS workstation. COMPARISON: None. FINDINGS: There is normal compressibility and flow within the bilateral common femoral, deep femoral, superfic ial femoral, posterior tibial, peroneal and popliteal veins. IMPRESSION: No sonographic evidence for deep venous thrombosis. RPTAT:AAJJ Physician Dwayne Date Time Electronically viewed and signed by Physician Dwayne on 05/03/2016 12:33 STEPHY/
[2016-05-03] MEDS ORDERED: IOHEXOL 100 ML ONE (12:46)
[2016-05-03] MEDS ORDERED: SOD CHLORIDE 0.9% 100 ML ONE (12:46)
[2016-05-03] MEDS: morphine (ER) 30 MG TAB PO SCH ×2 (13:59→22:12)
[2016-05-03] MEDS ORDERED: FUROSEMIDE 20 MG INJ IV ONE (15:30)
--- NOTE | 2016-05-03 15:42 | RADRPT ---
PROCEDURE: CT Pulmonary Angiogram. CLINICAL INDICATION: Progressive hypoxia. TECHNIQUE: CT pulmonary angiogram and a CT scan of the chest with contrast was performed. The pat ient was scanned following the uncomplicated intravenous administration of 70 cc of Omnipaque-350 in travenous contrast. 2-D coronal reformatted images were obtained from the axial source images. In addition, 3-D post processing was performed. Total exam DLP is 159.73 mGy-cm. CTDIvol is 19.72 mGy . One or more of the following dose reduction techniques were used: Automated exposure control, adj ustment of the mA and/or kV according to patient size, use of iterative reconstruction technique. COMPARISON: Noncontrast CT scan of the chest dated 04/25/2016. FINDINGS: There is enlargement of the central pulmonary arteries consistent with pulmonary artery hypertension . The pulmonary arteries are otherwise normal with no filling defect or lack of enhancement to sugg est pulmonary artery embolism. There is a left arm PICC line with the tip in the lower superior vena cava. There are new moderate bilateral pleural effusions with left larger than right. There is a small left pneumothorax measuri ng less than 5%. Emphysematous changes are present bilaterally with upper lung zone predominance consistent with cent rilobular emphysema. There is atelectasis at both lung bases posteriorly with left worse than right . The left lower lobe lung mass is not well seen due to the adjacent collapsed lung. There is no other pulmonary nodule or mass lesion. There is a right paratracheal enlarged lymph node measuring 2.2 x 2.3 cm and subcarinal lymphadenopa thy measuring 1.8 x 2.4 cm. There is possible left hilar lymphadenopathy. There is no supraclavicu lar or internal mammary lymphadenopathy on either side. There is no pericardial effusion. The heart is mildly enlarged. Calcification is present in the thoracic aorta consistent with atherosclerosis. The thoracic aorta is otherwise normal with no aneurysm or dissection. Images through the upper abdomen demonstrate normal visualized portions of the liver, spleen, and ad renals. There is an old compression fracture of L1 vertebral body and there are degenerative changes of the lower thoracic and upper lumbar spine. IMPRESSION: 1. Enlargement of the central pulmonary arteries consistent with pulmonary artery hypertension. 2. No evidence of pulmonary artery embolism. 3. Left arm PICC line tip in the lower superior vena cava. 4. Moderate bilateral pleural effusions with left larger than right. 5. Small left pneumothorax measuring less than 5%. 6. Centrilobular emphysema. 7. Atelectasis at the lung bases posteriorly with left worse than right. 8. Left lower lobe lung mass not well seen due to the adjacent collapsed lung. 9. Right paratracheal, subcarinal and possible left hilar lymphadenopathy. 10. Cardiomegaly. 11. Atherosclerosis. 12. Old compression fracture of L1 vertebral body. 13. Degenerative changes of the lower thoracic spine and upper lumbar spine. RPTAT: QQ .Abisai Mauricio MD, Date Time Electronically viewed and signed by .Abisai Mauricio MD, on 05/03/2016 15:42 .R/
--- NOTE | 2016-05-03 17:35 | PN ---
DATE: 05/03/2016 SUBJECTIVE: The patient is awake, alert, complains of severe withdrawal symptoms after Narcan dosing yesterday and now has recurrence of severe body aches and low back pain. OBJECTIVE VITAL SIGNS: Temperature 97.9, blood pressure 144/87, pulse of 98, respiration rate 22, O2 saturation 97% on 2 liters nasal cannula. HEENT: Pupils equally round and reactive to light. Oropharynx clear. LUNGS: Bilateral lower lobe crackles, left greater than right. CARDIAC: Regular rate and rhythm. Normal S1, S2. ABDOMEN: Active bowel sounds, soft, nondistended, nontender. EXTREMITIES: No clubbing. No cyanosis. There is 1+ bilateral lower extremity edema. LABORATORY DATA: WBC 7.1, hemoglobin 11.5, hematocrit 34.7, platelet count is 253,000. Sodium is 145, potassium 5.0, carbon dioxide 34, BUN 24, creatinine 0.63 with a glucose of 91. Chest x-ray today shows slightly improved appearance at the lung bases, atelectasis. There are small bilateral pleural effusions still. No evidence of pneumothorax. The lower extremity venous Doppler was negative for DVT. IMPRESSION AND PLAN: 1. Lung cancer. Plan to discharge the inpatient for outpatient PET scan to complete staging and workup prior to initiating chemotherapy. 2. Shortness of breath and hypoxia. Await chest CT angiogram to rule out pulmonary emboli. Most likely the cause is fluid overload since the patient is still edematous on chest x-ray and in the lower extremities. We will give 1 more dose of Lasix and watch her BUN and creatinine carefully. The patient also requests Christine catheter placement so she does not have to run to the bathroom so often. 3. Pain control. IV Dilaudid was too strong for patient and causes hypoxia and CO2 retention. I will resume the patient's usual morphine sulfate oral dosing. 4. Malnutrition. This may be partially the cause of the patient's extravasation of fluid, but she has very poor appetite. At this point, she is agreeable to starting on appetite stimulants, and we will initiate Marinol. However, since Marinol has pro-coagulant effect, I will also initiate subcutaneous heparin. Of course, if the patient does have pulmonary emboli, we can discontinue heparin and start on Eliquis or Coumadin. Dictated By: FERNIE BONE MD DP/NTS Conf#: [id number] DID#: [id number] MTDSaritha
[2016-05-03 20:30] VITALS: BP 173/101; RESP 20
[2016-05-03 20:35] VITALS: BP 134/86; PULSE 82
[2016-05-03 22:09] VITALS: BP 144/83; PULSE 89
[2016-05-03] MEDS: DRONABINOL 2.5 MG CAP PO SCH (22:12)
[2016-05-03] MEDS: HEPARIN 5,000 UNIT/0.5 ML SYG SC SCH (22:22)
[2016-05-04 06:56] LABS: ALBUMIN 2.7 g/dl (3.3-4.9)
[2016-05-04 06:59] LABS: TOTAL PROTEIN 5.1 g/dl (6.1-8.1)
[2016-05-04 07:06] LABS: PREALBUMIN 7.7 mg/dl (17.6-36.0)
[2016-05-04 07:15] LABS: POTASSIUM 4.3 mmol/L (3.5-5.1)
[2016-05-04 07:18] LABS: CREATININE 0.59 mg/dl (0.44-1.00)
[2016-05-04 07:19] LABS: CALCIUM 8.1 mg/dl (8.4-10.2)
[2016-05-04 07:28] VITALS: BP 182/78; RESP 20
[2016-05-04] MEDS: LEVALBUTEROL (NEB) 0.63 MG/3 ML AMP HHN SCH ×3 (08:00→16:00)
[2016-05-04] MEDS: CELECOXIB 200 MG CAP PO SCH (08:38)
[2016-05-04] MEDS: DRONABINOL 2.5 MG CAP PO SCH ×3 (08:38→21:00)
[2016-05-04] MEDS: DOCUSATE SODIUM 100 MG CAP PO SCH ×2 (08:39→20:59)
[2016-05-04] MEDS: morphine (ER) 30 MG TAB PO SCH ×2 (08:40→21:00)
[2016-05-04] MEDS: MULTIVITAMINS THERAPEUTIC TAB PO SCH (08:40)
[2016-05-04] MEDS: CHOLECALCIFEROL 2,000 UNIT CAP PO SCH (08:40)
[2016-05-04] MEDS: MAGNESIUM OXIDE 400 MG TAB PO SCH (08:40)
[2016-05-04] MEDS: ANASTROZOLE 1 MG TAB PO SCH (09:01)
[2016-05-04] MEDS: HEPARIN 5,000 UNIT/0.5 ML SYG SC SCH ×2 (09:02→21:17)
[2016-05-04] MEDS ORDERED: FUROSEMIDE 20 MG INJ IV ONE (10:30)
--- NOTE | 2016-05-04 10:48 | PN ---
DATE: 05/04/2016 SUBJECTIVE: The patient is asleep, no complaints, resting, appears comfortable on 4 liters of oxyge n. VITAL SIGNS: Temperature 98.1, blood pressure 182/78, respirations at 20, pulse is at 95, pulse ox is 98% on 4 liters nasal cannula. OBJECTIVE: HEENT: Oropharynx is clear. LUNGS: Bilateral lower crackles. HEART: Regular rate and rhythm. LABORATORY DATA: Demonstrate a creatinine of 0.59. Chest x-ray reports mildly better effusion. A CT angiogram of the lungs demonstrates negative for emboli. ASSESSMENT AND PLAN: 1. Shortness of breath and hypoxia. Patient was to rule out for emboli. CT angio was negative. I t has been thought that on chest x-ray the patient was fluid overloaded, was started on diuresis, La six one dose was given yesterday at 20 mg. Creatinine did not bump up. Will repeat the Lasix 20 mg again today. Patient is now on 4 liters nasal cannula, which appears to be higher than previously. 2. Lung cancer. Hematology/oncology is following patient. 3. Hypertension. Unclear why blood pressure all of a sudden went up, could be that the pain medici amadeo ran out. Patient does have p.r.n. clonidine given. Dictated By: LISSETH CURTIS/CHRISSIE Conf#: [id number] DID#: [id number]
[2016-05-04 19:20] VITALS: BP 181/85; RESP 16
[2016-05-04] MEDS: ONDANSETRON 4 MG INJ IV PRN (20:59)
[2016-05-04 22:40] VITALS: BP 122/64; PULSE 97
[2016-05-05 07:27] LABS: POTASSIUM 4.1 mmol/L (3.5-5.1)
[2016-05-05 07:29] LABS: CREATININE 0.54 mg/dl (0.44-1.00)
[2016-05-05 07:30] LABS: CALCIUM 7.8 mg/dl (8.4-10.2)
[2016-05-05 07:34] VITALS: BP 135/69; RESP 20
[2016-05-05 07:40] VITALS: BP 115/61; RESP 20
[2016-05-05] MEDS: LEVALBUTEROL (NEB) 0.63 MG/3 ML AMP HHN SCH ×3 (08:00→16:00)
[2016-05-05] MEDS: DRONABINOL 2.5 MG CAP PO SCH ×3 (08:46→20:56)
[2016-05-05] MEDS: CHOLECALCIFEROL 2,000 UNIT CAP PO SCH (08:47)
[2016-05-05] MEDS: morphine (ER) 30 MG TAB PO SCH ×2 (08:47→20:57)
[2016-05-05] MEDS: ANASTROZOLE 1 MG TAB PO SCH (08:49)
[2016-05-05] MEDS: DOCUSATE SODIUM 100 MG CAP PO SCH ×2 (08:49→20:57)
[2016-05-05] MEDS: CELECOXIB 200 MG CAP PO SCH (08:49)
[2016-05-05] MEDS: MULTIVITAMINS THERAPEUTIC TAB PO SCH (08:49)
[2016-05-05] MEDS: HEPARIN 5,000 UNIT/0.5 ML SYG SC SCH ×2 (08:56→21:07)
[2016-05-05] MEDS: MAGNESIUM OXIDE 400 MG TAB PO SCH (08:59)
[2016-05-05] MEDS ORDERED: FUROSEMIDE 20 MG INJ IV ONE (09:30)
--- NOTE | 2016-05-05 10:04 | PN ---
DATE: 05/05/2016 SUBJECTIVE: The patient continues to report difficulty breathing, painful to breathe. Also, lower extremity swelling is still present and has not improved. OBJECTIVE: VITAL SIGNS: Temperature 97.6, blood pressure 135/69, pulse is 86, respirations 20. HEAD: Normocephalic, atraumatic. EYES: Pupils are equal, round, and reactive to light and accommodation. Anicteric. LOWER EXTREMITIES: Trace to 1+ pitting edema of the ankle and foot bilaterally. LUNGS: No rhonchi. LABORATORY DATA: Tests demonstrate a creatinine of 0.54, potassium 4.1, sodium 137. ASSESSMENT AND PLAN: 1. The patient with shortness of breath, painful respiration. Hypoxia was ruled out for pulmonary embolism. Chest x-ray showed possible fluid overload and was diuresed x2 days, tolerating this very well. Creatinine is under 1.0. We will repeat the Lasix 20 mg again for today, repeat a creatinin e test tomorrow. BNP was at 1370. 2. Lung cancer. Hematology/oncology currently following. 3. Hypertension. Blood pressure has improved for today. Dictated By: LISSETH CURTIS/CHRISSIE Conf#: [id number] DID#: [id number]
--- NOTE | 2016-05-05 17:55 | CONS ---
DATE OF ADMISSION: 04/25/2016 DATE OF CONSULTATION: 05/05/2016 MEDICAL ONCOLOGY PROGRESS NOTE SUBJECTIVE: The patient does complain of some shortness of breath, no pleuritic chest pain at this time. No cough. OBJECTIVE VITAL SIGNS: Temperature 97.6, pulse 88 per minute and regular, respirations 20, blood pressure 130 /67 and pulse oximetry is 98% on 4 liters of oxygen by nasal cannula. SKIN: No ecchymosis, no petechiae or rashes but poor turgor. HEENT: No mucosal lesions. No scleral icterus. Nasal oxygen in place. NECK: No jugular venous distention or thyroid enlargement. CHEST: Decreased breath sounds on the left side. No rhonchi, wheezes, rales or rubs heard. ABDOMEN: Soft. There are no masses, no ascites. EXTREMITIES: No clubbing or cyanosis. There is 1+ bilateral pedal and pretibial edema. There is a PICC line in place in the left arm. NEUROLOGIC: Normal. HISTORY OF ASSESSMENT: 1. Nonsmall cell carcinoma of the left lung. 2. History of breast carcinoma. PLAN: Still awaiting the results of genomic studies on the lung biopsy of 04/29/2016. The patient also should have a PET CT scan in order to complete staging, but this certainly will no t be a resectable tumor given the fact that the patient has a large left lower mass as well as media stinal adenopathy and probable nodules in the right middle and lower lobe. Dictated By: CLARISSA DE PAZ MD, SR/NTS Conf#: [id number] DID#: [id number]
[2016-05-05 20:08] VITALS: BP 190/88; RESP 20
[2016-05-05] MEDS: ONDANSETRON 4 MG INJ IV PRN (21:17)
[2016-05-05 23:00] VITALS: BP 139/79; PULSE 98; RESP 19
[2016-05-06] MEDS: LEVALBUTEROL (NEB) 0.63 MG/3 ML AMP HHN SCH ×3 (00:06→16:14)
[2016-05-06 06:26] LABS: POTASSIUM 4.3 mmol/L (3.5-5.1)
[2016-05-06 06:29] LABS: CREATININE 0.59 mg/dl (0.44-1.00)
[2016-05-06 06:30] LABS: CALCIUM 7.9 mg/dl (8.4-10.2)
[2016-05-06 07:26] VITALS: BP 174/74; RESP 20
[2016-05-06 08:00] VITALS: BP 148/82; PULSE 88
[2016-05-06] MEDS: MAGNESIUM OXIDE 400 MG TAB PO SCH (09:00)
[2016-05-06] MEDS: DRONABINOL 2.5 MG CAP PO SCH ×3 (09:01→21:07)
[2016-05-06] MEDS: CELECOXIB 200 MG CAP PO SCH (09:13)
[2016-05-06] MEDS: CHOLECALCIFEROL 2,000 UNIT CAP PO SCH (09:13)
[2016-05-06] MEDS: MULTIVITAMINS THERAPEUTIC TAB PO SCH (09:13)
[2016-05-06] MEDS: DOCUSATE SODIUM 100 MG CAP PO SCH ×2 (09:13→21:07)
[2016-05-06] MEDS: morphine (ER) 30 MG TAB PO SCH ×2 (09:21→21:07)
[2016-05-06] MEDS: ANASTROZOLE 1 MG TAB PO SCH (10:05)
--- NOTE | 2016-05-06 10:18 | PN ---
DATE: 05/06/2016 SUBJECTIVE: The patient is not complaining of any chest pain. No complaints of cough. No wheezing. No hemoptysis. OBJECTIVE: VITAL SIGNS: Temperature 97.5, pulse 80 per minute and regular, respirations 20, blood pressure 174 /74, pulse oximetry 98% on 4 liters of oxygen by nasal cannula. SKIN: No ecchymosis, no petechiae or rashes. HEENT: No mucosal lesions. No scleral icterus. The pupils are equal, round, react to light and ac commodation. There is nasal oxygen in place. NECK: Supple, no jugular venous distention or thyroid enlargement. CHEST: Decreased breath sounds in the left base with dullness to percussion. No rubs or wheezes. No rhonchi heard. HEART: Regular sinus rhythm, no S3, S4 or murmurs. ABDOMEN: Soft, no masses, no ascites. EXTREMITIES: No clubbing, edema or cyanosis. No palpable cords or Homans sign. NEUROLOGIC: Normal. Previous determinations of CEA was 147 while CA 27-29 was 32. I have checked with pathology and the genomic studies requested on the lung biopsy of 04/29/2016 are still pending. ASSESSMENT: 1. Nonsmall cell carcinoma of the lung. 2. History of breast carcinoma. PLAN: Still awaiting the genomic studies on the biopsy of 130. Dictated By: CLARISSA DE PAZ MD SR/NTS Conf#: [id number] DID#: [id number]
[2016-05-06] MEDS: HEPARIN 5,000 UNIT/0.5 ML SYG SC SCH ×2 (11:11→21:23)
[2016-05-06 19:00] VITALS: BP 128/79; RESP 18
--- NOTE | 2016-05-06 21:32 | PN ---
DATE: 05/06/2016 SUBJECTIVE: Patient is awake and alert. Still complains of pain where the needle biopsy went through her lungs and a persistent mild shortness of breath. She is still weak but appears to have a little bit more appetite and has been able to eat a little bit more than usual. OBJECTIVE: VITAL SIGNS: Temperature 97.5, blood pressure 148/82, pulse of 85, respiration rate 18, O2 saturation 98% on 4 liters nasal cannula. I's and O's since yesterday shows an intake of 830 mL, output of 2700 mL for a negative fluid balance of -1870 mL. HEENT: Pupils equally round, reactive to light. Oropharynx clear. LUNGS: Bibasilar crackles, left markedly greater than right. HEART: Regular rate and rhythm, normal S1, S2. ABDOMEN: Active bowel sounds, soft, nondistended, nontender. EXTREMITIES: No clubbing, cyanosis, or edema. LABORATORY DATA: Sodium 136, potassium 4.3, chloride 92, bicarbonate 36, BUN 17 , creatinine 0.59, glucose 83, calcium 7.9. The proBNP is 1370. Total protein was 5.1, albumin was 2.7 and prealbumin is 7.7, where the normal range is 17.6 to 36. ASSESSMENT AND PLAN: 1. Lung cancer status post lung biopsy with most recent chest x-ray showing increased atelectasis or collapse of the left basilar lung and very small pneumothorax. The patient is improving very slowly, but will need further staging workup including PET scan prior to initiation of any plans or chemotherapy. Will need to discharge the patient to acute rehab or alf facility. 2. Weakness. The patient was evaluated by acute rehab unit and was unable to tolerate walking for a few steps, so she could not go to acute rehabilitation. We are evaluating her for alf placement at this point. I noticed on case management's note that the patient is being evaluated by [facility]. The patient specifically does not want to go to [facility] because her best friend had a very bad experience where she almost there, so she would be willing to consider [facility] or [facility] rather than [facility]. 3. Shortness of breath. May be compounded from the patient's underlying chronic obstructive pulmonary disease with the basilar atelectasis and lung mass. Will add some inhalers to see if we can open her lungs up a little bit better and resume her chronic obstructive pulmonary disease inhalation as well. 4. Malnutrition. The patient has been having very poor appetite for some time. We started her on Marinol a few days ago. Hopefully, she is starting to eat better. We will plan on doing a calorie count at the alf facility. Dictated By: FERNIE BONE MD DP/NTS Conf#: [id number] DID#: [id number] MTDD
[2016-05-07] MEDS: LEVALBUTEROL (NEB) 0.63 MG/3 ML AMP HHN SCH ×4 (00:38→23:37)
[2016-05-07 07:44] VITALS: BP 128/86; RESP 16
[2016-05-07] MEDS: MAGNESIUM OXIDE 400 MG TAB PO SCH (09:00)
[2016-05-07] MEDS: ANASTROZOLE 1 MG TAB PO SCH (09:22)
[2016-05-07] MEDS: HEPARIN 5,000 UNIT/0.5 ML SYG SC SCH ×2 (09:22→21:36)
[2016-05-07] MEDS: CHOLECALCIFEROL 2,000 UNIT CAP PO SCH (09:23)
[2016-05-07] MEDS: morphine (ER) 30 MG TAB PO SCH ×2 (09:23→21:35)
[2016-05-07] MEDS: DRONABINOL 2.5 MG CAP PO SCH ×3 (09:24→21:34)
[2016-05-07] MEDS: CELECOXIB 200 MG CAP PO SCH (09:24)
[2016-05-07] MEDS: DOCUSATE SODIUM 100 MG CAP PO SCH ×2 (09:24→21:35)
[2016-05-07] MEDS: MULTIVITAMINS THERAPEUTIC TAB PO SCH (09:24)
--- NOTE | 2016-05-07 18:55 | CONS ---
DATE OF ADMISSION: 04/25/2016 DATE OF CONSULTATION: 05/07/2016 MEDICAL ONCOLOGY PROGRESS NOTE REASON FOR CONSULTATION: Ms. Hoskins has no change in symptomatology. She does seem however, less sarah rt of breath. VITAL SIGNS: Temperature 98.3 orally, pulse 77 per minute and regular, respirations 16, blood press ure 120/86, pulse oximetry is 98% on 3 liters. The genomic studies on lung biopsy are still pending. The patient will be discharged today and [facility]. As previously noted, the treatment choices will depend upon the genomic studies. Various choices wi ll include combination chemotherapy, tyrosine kinase inhibitor such as imatinib, or a checkpoint inh ibitor such as Keytruda. The patient will also require a PET-CT scan. Dictated By: CLARISSA DE PAZ MD, SR/NTS Conf#: [id number] DID#: [id number]
[2016-05-07 19:00] VITALS: BP 123/63; RESP 20
[2016-05-07] MEDS: ONDANSETRON 4 MG INJ IV PRN (21:38)
--- NOTE | 2016-05-07 22:59 | DS ---
DATE OF ADMISSION: 04/25/2016 DATE OF DISCHARGE: 05/08/2016 DISCHARGE DIAGNOSES: 1. Primary lung cancer. 2. Nausea and vomiting. 3. Weakness. 4. Malnutrition. 5. Status post pneumonitis. 6. History of recent breast cancer. 7. Hypertension. 8. Chronic obstructive pulmonary disease. 9. Lumbar spine degenerative disk disease. 10. Osteoarthritis. 11. Osteoporosis. 12. Bilateral fibrocystic breast disease. 13. Insomnia. HOSPITAL COURSE: This 80-year-old patient with history of breast cancer status post lumpectomy 2 years ago was admitted for nausea, vomiting, and weakness as well as workup of left basilar pneumonitis that has failed Levaquin treatment as an outpatient. The patient was started on IV antibiotics , but the chest CT showed left lower lobe mass rather than an infiltrate. Oncology consultation was obtained since patient is well known to Dr. Cordova for her breast cancer. CT-guided lung biopsy was done and the pathology revealed primary lung cancer. The patient had mildly complicated post- procedural hospital course due to hypoxia, weakness, and recurrent nausea, vomiting. The hypoxia stabilized with 2 doses of Lasix and discontinuation of IV Dilaudid. The nausea and vomiting improved with discontinuation of IV antibiotics as well as the IV Dilaudid. The weakness continued and workup did show that the patient had chronic malnutrition. She was started on Marinol for appetite stimulant and will need to be started on a calorie count in the outpatient setting. She was evaluated by physical therapy and appeared to be too weak for the acute rehab unit at the hospital. She did qualify for acute rehabilitation at [facility] and will be transferred there when a bed is available. DISCHARGE MEDICATIONS: Includes: 1. Arimidex 1 mg p.o. every day. 2. Celebrex 400 mg p.o. every day. 3. Vitamin D 2000 units p.o. every day. 4. Colace 100 mg p.o. b.i.d. 5. Marinol 2.5 mg p.o. t.i.d. 6. Heparin 500 units subq b.i.d. 7. Dilaudid 4 mg p.o. q.8 hours as needed for breakthrough pain. 8. Morphine ER 30 mg p.o. q.12h. around the clock. Hold for sedation. 9. Albuterol sulfate HFA 2 puffs b.i.d. 10. Magnesium oxide 400 mg p.o. every day. 11. Multivitamin 1 tab p.o. every day. 12. Ambien 5 mg p.o. at bedtime. 13. Kenalog dental paste to oral ulcer t.i.d. x5 days. DISPOSITION: The patient is discharged to rehab facility in fair condition. FOLLOWUP: The patient will be seen at the rehab unit by Dr. Fernie Hernandez. Dictated By: FERNIE HERNANDEZ MD DP/CHRISSIE Conf#: [id number] DID#: [id number] MTDD
[2016-05-08] MEDS: LEVALBUTEROL (NEB) 0.63 MG/3 ML AMP HHN SCH (07:50)
[2016-05-08] MEDS: MAGNESIUM OXIDE 400 MG TAB PO SCH (10:00)
[2016-05-08] MEDS: DRONABINOL 2.5 MG CAP PO SCH (10:22)
[2016-05-08] MEDS: DOCUSATE SODIUM 100 MG CAP PO SCH (10:25)
[2016-05-08] MEDS: CHOLECALCIFEROL 2,000 UNIT CAP PO SCH (10:26)
[2016-05-08] MEDS: MULTIVITAMINS THERAPEUTIC TAB PO SCH (10:27)
[2016-05-08] MEDS: CELECOXIB 200 MG CAP PO SCH (10:30)
[2016-05-08] MEDS: morphine (ER) 30 MG TAB PO SCH (10:30)
[2016-05-08] MEDS: HEPARIN 5,000 UNIT/0.5 ML SYG SC SCH (10:41)
[2016-05-08] MEDS: ANASTROZOLE 1 MG TAB PO SCH (10:42)
[2016-05-08] MEDS: ONDANSETRON 4 MG INJ IV PRN (12:59)
[2016-05-08] MEDS ORDERED: VITAMIN A & D 5 GM OINT PACKET TOP ONE (14:10)
== END 2016-05-08 14:15 | DRG 180 ==
LOC: E/R 15:34 → MS2 19:37
PROVIDERS: ADMIT Internal Medicine; ATTEND Internal Medicine
PROC: 0BBJ3ZX Excision of Left Lower Lung Lobe, Percutaneous Approach, Diagnostic (ICD-10-PCS; principal; 2016-04-29)
PROC: 02HV33Z Insertion of Infusion Device into Superior Vena Cava, Percutaneous Approach (ICD-10-PCS; 2016-04-29)
PROC: B548ZZA Ultrasonography of Superior Vena Cava, Guidance (ICD-10-PCS; 2016-04-29)
DX: C34.32 Malignant neoplasm of lower lobe, left bronchus or lung (principal); J18.9 Pneumonia, unspecified organism; E46 Unspecified protein-calorie malnutrition; J44.9 Chronic obstructive pulmonary disease, unspecified; I11.9 Hypertensive heart disease without heart failure; E86.0 Dehydration; J45.909 Unspecified asthma, uncomplicated; Z68.1 Body mass index [BMI] 19.9 or less, adult; B18.1 Chronic viral hepatitis B without delta-agent; R11.2 Nausea with vomiting, unspecified; R53.1 Weakness; M51.36 Other intervertebral disc degeneration, lumbar region; M81.0 Age-related osteoporosis without current pathological fracture; G47.00 Insomnia, unspecified; R09.02 Hypoxemia; Z96.641 Presence of right artificial hip joint; Z85.3 Personal history of malignant neoplasm of breast
CPT/HCPCS: 36415; 36569; 36600; 71010; 71020; 71250; 71275; 76700; 76937; 77012; 80048; 80053; 82040; 82378; 82550; 82553; 82803; 83605; 83735; 83880; 84134; 84155; 84484; 85025; 85610; 85730; 86300; 87040; 88104; 88307; 88313; 93005; 93306; 93923; 94640; 96365; 96375; 97110; 97162; 97530; J1940; C1769; J1170; J1200; J2250; J2310; J2405; J3010; J3370; J3480; J7030; J7040; J7042; Q9967

== ENCOUNTER 2016-09-16 17:00 | Emergency (ER) | payer MEDICARE, OTHER ==
[~2016-09-16] VITALS: Wt 43.0 kg
[~2016-09-16 17:00] MED LIST changes: -ADV50050 INH; +ALBU18HF INHALATION; -ALBU8.5H3 INH; -ALEN70TA30 PO; +ANAS1TAB PO; -CLIN-73 PO; -CYCL5TAB PO; -HYDR2TAB3 PO; +HYDR4TAB18 PO; -LEVO500T72 PO; +MAGN400T28 PO; +MORP-58 PO; -MORP15TA92 PO; +MULTI PO; -PRED20 PO; -TIOT18CA IH; -[UNRECOGNIZED DRUG - CODE] PO
--- NOTE | 2016-09-16 17:31 | ERA ---
ER Documentation Chief Complaint Date/Time DATE: 09/16/16 TIME: 17:28 Chief Complaint HPI This is an 81-year-old female with a significant past medical history presenting after being seen by oncologist. Oncologist sent patient to the emergency department for evaluation of possible deep venous thrombosis in the right lower extremity. Patient denies pain, shortness of breath, chest pain, headache. Patient has not taken any anticoagulants. Patient has no other complaints. Patient has been evaluated for this before but states that "there is never been because my legs". Patient describes no other associated manifestations. Previous documents and nursing notes have been reviewed and are consistent with the patient's given history. ROS All systems reviewed and are negative except as per history of present illness. Medications Home Meds Reported Medications Anastrozole* (Arimidex*) 1 Mg Tablet, 1 MG PO DAILY, #30 TAB 04/25/16 Multivitamins* (Theragran*) 1 Tab Tab, 1 TAB PO DAILY, TAB 04/25/16 Albuterol Sulfate* (Ventolin HFA*) 18 Gm Hfa.aer.ad, 2 PUFF INHALATION DIRECTED, #1 INHALER 04/25/16 Celecoxib* (Celebrex*) 200 Mg Capsule, 400 MG PO DAILY, CAP 04/25/16 Hydromorphone Hcl* (Dilaudid*) 4 Mg Tablet, 4 MG PO Q8 Y for PAIN, TAB 04/25/16 Morphine Sulfate* (Oramorph SR*) 30 Mg Tablet.sa, 30 MG PO Q12, TAB.SA 04/25/16 Magnesium Oxide* (Magnesium Oxide*) 400 Mg Tablet, 400 MG PO DAILY, TAB 04/25/16 Cholecalciferol (Vitamin D3) (VITAMIN D-3) 2,000 Unit Capsule, 2000 UNIT PO DAILY 03/31/14 Allergies Allergies: Coded Allergies: benztropine (Verified Allergy, Severe, 04/25/16) tremors badly. pineapple (Verified Allergy, Severe, severe rashes, 04/25/16) acetaminophen (Unverified Allergy, Intermediate, 04/25/16) STOMACH UPSET/VOMITING. ibuprofen (Verified Allergy, Intermediate, 04/25/16) STOMACH UPSET/VOMITING. vancomycin (Verified Allergy, Intermediate, RASH, REDNESS, 04/25/16) Penicillins (Verified Allergy, Unknown, 04/25/16) Sulfa (Sulfonamide Antibiotics) (Verified Allergy, Unknown, 04/25/16) codeine (Verified Adverse Reaction, Unknown, NV, 04/25/16) Uncoded Allergies: STRAWBERRIES (Allergy, Severe, severe rashes, 03/30/14) TOMATOES (Allergy, Severe, severe rashes, 03/30/14) plastic tape. (Allergy, Severe, 12/15/14) itchy, redness. PMhx/Soc History of Surgery: No (RT AND LT HIP REPLACEMENT, BREAST CANCER RIGHT BREAST) Anesthesia Reaction: No Hx Neurological Disorder: No Hx Respiratory Disorders: No Hx Cardiac Disorders: No Hx Psychiatric Problems: No Hx Miscellaneous Medical Probl: Yes (BREAT CA, HTN, PNA, LS DDD, OSTEOPOROSIS, ASTHMA, INSOMNIA) Hx Alcohol Use: No Hx Substance Use: No Hx Tobacco Use: No Smoking Status: Former smoker Physical Exam Vitals Vital Signs Date Time Temp Pulse Resp B/P Pulse Ox O2 Delivery O2 Flow Rate FiO2 09/16/16 17:00 98.1 71 20 122/74 99 Physical Exam Const: Appropriate appearing 81-year-old female in the wheelchair on initial presentation. Head: Atraumatic Eyes: Normal Conjunctiva ENT: Normal External Ears, Nose and Mouth. Neck: Full range of motion..~ No meningismus. Resp: Clear to auscultation bilaterally Cardio: Regular rate and rhythm, no murmurs Abd: Soft, non tender, non distended. Normal bowel sounds Skin: No petechiae or rashes Back: No midline or flank tenderness Ext: 3+ pitting edema of the right lower extremity and 2+ pitting edema of the left lower extremity. No cyanosis. Neur: Awake and alert Psych: Normal Mood and Affect Procedures/MDM Patient was sent by her Dr. Korey Cordova presented to the ED for evaluation of right lower extremity venous thromboembolism event due to slightly more swelling in the right versus left extremity. Patient has no other complaints. Physical examination did show slightly more pitting edema in the right lower extremity as compared to the left (3+ versus 2+, respectively). Patient had a duplex ultrasound ordered for the right lower extremity which was read by the radiologist given the following impression: 1. No evidence of deep vein thrombosis involving the right lower extremity. At this time a very little suspicion for deep venous thrombosis, pulmonary embolism or other venous thromboembolism events. Patient will be discharged with discharge instructions and return precautions. This case has been reviewed with my attending who agrees with assessment and plan. Patient has "multiple appointments" with physicians within the next week; however, I have discussed with her the importance of being followed up by her primary care provider in the next 1-3 days and she has verbally agreed that she understands her current condition and management. Departure Diagnosis: Primary Impression: Swelling Condition: Stable Additional Instructions: Follow up with your PCP within the next 1-3 days for a more thorough evaluation and a possible referral to a specialist. Return the the emergency department immediately if symptoms worsen or change. If you have any questions regarding medications, ask your pharmacist or us before you leave. If any adverse reactions occur while taking your medications, discontinue the treatment and return to the emergency department immediately. Take your medications as directed, and complete the entire course of treatment. DOYLE VICKERS PA-C Sep 16, 2016 17:31
--- NOTE | 2016-09-16 17:34 | RADRPT ---
PROCEDURE: US right lower extremity veins. CLINICAL INDICATION: Right leg pain and swelling. TECHNIQUE: Multiple longitudinal and transverse images of the right lower extremity veins were obt ained with ross scale and color Doppler imaging. The common femoral vein, femoral vein, and poplitea l vein were evaluated. 2D grayscale measurements with compression sonography, pulsed Doppler, color Doppler, and pulsed Doppler with augmentation. COMPARISON: No prior studies are available for comparison. FINDINGS: The right common femoral, femoral and popliteal veins are normally compressible throughout. Color f low demonstrates normal filling of the vessels. Normal waveforms are visualized and there is normal response to augmentation. IMPRESSION: 1. No evidence of deep vein thrombosis involving the right lower extremity. RPTAT: QQ .Abisai Mauricio MD, MD Date Time Electronically viewed and signed by .Abisai Mauricio MD, on 09/16/2016 17:34 .R/
== END 2016-09-16 18:54 | disposition home or self-care (01) ==
LOC: E/R 17:00 → FTE 18:54
DX: M79.89 Other specified soft tissue disorders (principal); I10 Essential (primary) hypertension; J45.909 Unspecified asthma, uncomplicated; Z85.3 Personal history of malignant neoplasm of breast; Z96.643 Presence of artificial hip joint, bilateral; Z87.891 Personal history of nicotine dependence
CPT/HCPCS: 93971

== ENCOUNTER 2016-12-15 18:14 | Inpatient (IN) | payer MEDICARE, OTHER ==
[~2016-12-15] VITALS: Ht 154.9 cm; Wt 39.5 kg
[~2016-12-15 18:14] MED LIST changes: -CHOL20003 PO; +CHOL200073 PO; -HYDR4TAB18 PO; +HYDR4TAB51 PO
[2016-12-15] MEDS ORDERED: SOD CHLORIDE 0.9% 1,000 ML IV STA (18:44)
[2016-12-15 19:49] LABS: EOSINOPHILS % 0.6 % (0.0-7.0); HEMATOCRIT 26.7 % (37.0-47.0); HEMOGLOBIN 9.3 g/dl (12.0-16.0); LYMPHOCYTES % 28.1 % (15.0-51.0); MEAN CORPUSCULAR HEMOGLOBIN 35.9 pg (29.0-33.0); MEAN CORPUSCULAR HGB CONC 34.8 g/dl (32.0-37.0); MEAN CORPUSCULAR VOLUME 103.1 fl (82.0-101.0); MEAN PLATELET VOLUME 9.9 fl (7.4-10.4); MONOCYTE # 0.3 10^3/ul (0.3-0.9); MONOCYTES % 10.1 % (0.0-11.0); NEUTROPHIL # 2.1 10^3/ul (1.6-7.5); NEUTROPHILS % 60.9 % (39.0-77.0); PLATELET COUNT 176 10^3/UL (140-415); RED BLOOD COUNT 2.59 10^6/ul (4.20-5.40); RED CELL DISTRIBUTION WIDTH 13.6 % (11.5-14.5); WHITE BLOOD COUNT 3.4 10^3/ul (4.8-10.8)
[2016-12-15 19:56] LABS: ALBUMIN 3.8 g/dl (3.3-4.9); ALBUMIN/GLOBULIN RATIO 1.22; CALCIUM 9.9 mg/dl (8.4-10.2); CREATININE 1.1 mg/dl (0.44-1.00); POTASSIUM 4.5 mmol/L (3.5-5.1); TOTAL PROTEIN 6.9 g/dl (6.1-8.1)
[2016-12-15 20:08] LABS: TROPONIN-I 0.02 ng/ml (0.00-0.12)
--- NOTE | 2016-12-15 21:21 | RADRPT ---
PROCEDURE: XR Chest. CLINICAL INDICATION: Chest pain TECHNIQUE: Single frontal view of the chest was obtained COMPARISON: 05/03/2016 FINDINGS: Small bilateral pleural effusions are again seen mildly improved compared to previous study. The hea rt does not appear to be grossly enlarged. Linear atelectasis/fibrosis in left mid lung. Calcificati on in the aortic arch. Degenerative changes in thoracic spine. IMPRESSION: Small bilateral pleural effusions are again seen mildly improved compared to previous study. RPTAT: HJES .aWrren Carias MD, MD Date Time Electronically viewed and signed by .Warren Carias MD, MD on 12/15/2016 21:21 .S/
[2016-12-15] MEDS ORDERED: SOD CHLORIDE 0.9% 1,000 ML IV SCH (22:21)
--- NOTE | 2016-12-15 22:24 | ERA ---
ER Documentation Chief Complaint Date/Time DATE: 12/15/16 TIME: 22:22 Chief Complaint generalize body weakness and pain worse today, on chemo x6mths. HPI This is a 81-year-old female with a history of lung cancer undergoing chemotherapy complains of generalized weakness over the past 3 weeks. The patient states that her chemo was 3 weeks ago and ever since then she is getting more weak. Patient has seen her primary care physician and they have run labs and discussed that if she continues to get more week to go to the hospital for admission. The patient has no headache no chest pain no cough no shortness of breath no abdominal pain vomiting diarrhea but she does have a marked decrease in her appetite with decreased oral intake. She says she is having good urine output and bowel movements every day. She just says she feels generalized weakness ROS All systems reviewed and are negative except as per history of present illness. Medications Home Meds Reported Medications Anastrozole* (Arimidex*) 1 Mg Tablet, 1 MG PO DAILY, #30 TAB 04/25/16 Multivitamins* (Theragran*) 1 Tab Tab, 1 TAB PO DAILY, TAB 04/25/16 Albuterol Sulfate* (Ventolin HFA*) 18 Gm Hfa.aer.ad, 2 PUFF INHALATION DIRECTED, #1 INHALER 04/25/16 Celecoxib* (Celebrex*) 200 Mg Capsule, 400 MG PO DAILY, CAP 04/25/16 Hydromorphone Hcl* (Dilaudid*) 4 Mg Tablet, 4 MG PO Q8 Y for PAIN, TAB 04/25/16 Morphine Sulfate* (Oramorph SR*) 30 Mg Tablet.sa, 30 MG PO Q12, TAB.SA 04/25/16 Magnesium Oxide* (Magnesium Oxide*) 400 Mg Tablet, 400 MG PO DAILY, TAB 04/25/16 Cholecalciferol (Vitamin D3) (VITAMIN D-3) 2,000 Unit Capsule, 2000 UNIT PO DAILY 03/31/14 Allergies Allergies: Coded Allergies: benztropine (Verified Allergy, Severe, 04/25/16) tremors badly. pineapple (Verified Allergy, Severe, severe rashes, 04/25/16) acetaminophen (Unverified Allergy, Intermediate, 04/25/16) STOMACH UPSET/VOMITING. ibuprofen (Verified Allergy, Intermediate, 04/25/16) STOMACH UPSET/VOMITING. vancomycin (Verified Allergy, Intermediate, RASH, REDNESS, 04/25/16) Penicillins (Verified Allergy, Unknown, 04/25/16) Sulfa (Sulfonamide Antibiotics) (Verified Allergy, Unknown, 04/25/16) codeine (Verified Adverse Reaction, Unknown, NV, 04/25/16) Uncoded Allergies: STRAWBERRIES (Allergy, Severe, severe rashes, 03/30/14) TOMATOES (Allergy, Severe, severe rashes, 03/30/14) plastic tape. (Allergy, Severe, 12/15/14) itchy, redness. PMhx/Soc History of Surgery: No (RT AND LT HIP REPLACEMENT, BREAST CANCER RIGHT BREAST) Anesthesia Reaction: No Hx Neurological Disorder: No Hx Respiratory Disorders: Yes (COPD) Hx Cardiac Disorders: No Hx Psychiatric Problems: No Hx Miscellaneous Medical Probl: Yes (BREAT CA, HTN, PNA, LS DDD, OSTEOPOROSIS, ASTHMA, INSOMNIA) Hx Alcohol Use: No Hx Substance Use: No Hx Tobacco Use: Yes Smoking Status: Current every day smoker FmHx Family History: No coronary disease Physical Exam Vitals Vital Signs Date Time Temp Pulse Resp B/P Pulse Ox O2 Delivery O2 Flow Rate FiO2 12/15/16 20:12 92 22 125/53 100 Mask 12/15/16 18:16 99.5 72 18 176/77 94 Physical Exam Const: Well-developed, well-nourished Head: Atraumatic, normocephalic Eyes: Normal Conjunctiva, PERRLA, EOMI, normal sclera, no nystagmus ENT: Normal External Ears, Nose and Mouth, moist mucus membranes. Neck: Full range of motion. No meningismus, no lymphadenopathy. Resp: Clear to auscultation bilaterally, no wheezing, rhonchi, rales Cardio: Regular rate and rhythm, no murmurs, S1 S2 present Abd: Soft, non tender x 4, non distended. Normal bowel sounds, no guarding or rebound, no pulsitile abdominal masses or bruits Skin: No petechiae or rashes, no ecchymosis , no maculopapular rash Back: No midline or flank tenderness Ext: No cyanosis, or edema, FROM x 4, normal inspection, neurovascularly intact x 4 Neur: Awake and alert, STR 5/5 x 4, sensation intact x 4, no focal findings, cerebellum intact Psych: Normal Mood and Affect Result Diagram: 12/15/16190912/15/161909 Results 24 hrs Laboratory Tests Test 12/15/16 19:10 White Blood Count 3.410^3/ul Red Blood Count 2.5910^6/ul Hemoglobin 9.3g/dl Hematocrit 26.7% Mean Corpuscular Volume 103.1fl Mean Corpuscular Hemoglobin 35.9pg Mean Corpuscular Hemoglobin Concent 34.8g/dl Red Cell Distribution Width 13.6% Platelet Count 94638^3/UL Mean Platelet Volume 9.9fl Neutrophils % 60.9% Lymphocytes % 28.1% Monocytes % 10.1% Eosinophils % 0.6% Basophils % 0.0% Nucleated Red Blood Cells % 0.0/100WBC Neutrophils # 2.110^3/ul Lymphocytes # 1.010^3/ul Monocytes # 0.310^3/ul Eosinophils # 0.010^3/ul Basophils # 0.010^3/ul Nucleated Red Blood Cells # 0.010^3/ul Sodium Level 135mmol/L Potassium Level 4.5mmol/L Chloride Level 97mmol/L Carbon Dioxide Level 30mmol/L Anion Gap 13 Blood Urea Nitrogen 32mg/dl Creatinine 1.10mg/dl Glucose Level 102mg/dl Calcium Level 9.9mg/dl Total Bilirubin 0.0mg/dl Direct Bilirubin 0.00mg/dl Indirect Bilirubin 0.0mg/dl Aspartate Amino Transf (AST/SGOT) 24IU/L Alanine Aminotransferase (ALT/SGPT) 18IU/L Alkaline Phosphatase 76IU/L Troponin I 0.020ng/ml Total Protein 6.9g/dl Albumin 3.8g/dl Globulin 3.10g/dl Albumin/Globulin Ratio 1.22 Current Medications Medications (Trade) Dose Ordered Sig/Machelle Route PRN Reason Start Time Stop Time Status Last Admin Dose Admin Sodium Chloride (NS) 1,000 ml @ 1,000 mls/hr Q1H STAT IV 12/15/16 18:44 12/15/16 19:43 DC 12/15/16 19:15 Procedures/MDM PROCEDURE: XR Chest. CLINICAL INDICATION: Chest pain TECHNIQUE: Single frontal view of the chest was obtained COMPARISON: 05/03/2016 FINDINGS: Small bilateral pleural effusions are again seen mildly improved compared to previous study. The heart does not appear to be grossly enlarged. Linear atelectasis/fibrosis in left mid lung. Calcification in the aortic arch. Degenerative changes in thoracic spine. IMPRESSION: Small bilateral pleural effusions are again seen mildly improved compared to previous study. RPTAT: HJES .Warren Carias MD, MD Date Time Electronically viewed and signed by .Warren Carias MD, MD on 12/15/2016 21:21 .S/ CC: TRICIA RICHMOND DO Patient has some prerenal azotemia suggestive of some mild dehydration. Will admit for fluid resuscitation as well as further workup for her anorexia. She may need to go on an appetite increasing medication like Marinol Departure Diagnosis: Primary Impression: Dehydration Additional Impression: Anorexia Condition: Stable TRICIA RICHMOND DO Dec 15, 2016 22:24
[2016-12-15] MEDS ORDERED: ZOLPIDEM 5 MG TAB PO PRN (22:30)
[2016-12-15] MEDS ORDERED: HYDROmorphONE 4 MG TAB PO PRN (22:30)
[2016-12-15] MEDS ORDERED: ALBUTEROL 18 GM INHALER INH PRN (22:30)
[2016-12-15] MEDS ORDERED: NACL 0.9% 3 ML SYG IV SCH (22:30)
[2016-12-15] MEDS ORDERED: ONDANSETRON 4 MG INJ IV PRN ×2 (22:30)
[2016-12-16] MEDS ORDERED: NICARDipine HCL 30 MG CAPSULE PO ONE
[2016-12-16 01:04] VITALS: Ht 154.9 cm; Wt 39.5 kg
[2016-12-16 01:14] VITALS: BP 124/64; PULSE 75; RESP 17
[2016-12-16] MEDS: DEXTROSE 5%-0.45% NACL 1,000 ML IV SCH ×2 (01:20→19:10)
[2016-12-16] MEDS ORDERED: METO10TA92 PO (05:42)
[2016-12-16] MEDS ORDERED: FOLI-49 PO (05:42)
[2016-12-16] MEDS ORDERED: BENZ200C43 PO (05:42)
[2016-12-16] MEDS ORDERED: SENN-59 PO (05:42)
[2016-12-16] MEDS ORDERED: POLY1GRA MC (05:42)
[2016-12-16 06:18] LABS: ALBUMIN 3.1 g/dl (3.3-4.9); ALBUMIN/GLOBULIN RATIO 1.06; CALCIUM 8.8 mg/dl (8.4-10.2); CREATININE 0.88 mg/dl (0.44-1.00); POTASSIUM 3.9 mmol/L (3.5-5.1)
[2016-12-16] MEDS: CELECOXIB 200 MG CAP PO SCH (09:00)
[2016-12-16] MEDS: MAGNESIUM OXIDE 400 MG TAB PO SCH (09:03)
[2016-12-16] MEDS: HYDROmorphONE 2 MG TAB PO PRN (12:42)
[2016-12-16] MEDS ORDERED: HYDROCODONE/HOMATROPINE 5ML CUP PO PRN ×2 (15:00→15:30)
[2016-12-16] MEDS: HYDROCODONE/HOMATROPINE 5ML CUP PO PRN ×2 (15:39→21:51)
--- NOTE | 2016-12-16 17:25 | HP ---
Date/Time of Note Date/Time of Note DATE: 12/16/16 TIME: 17:24 Assessment/Plan VTE Prophylaxis VTE Prophylaxis Intervention: heparin Lines/Catheters IV C[facility]ter Type (from [facility]): Peripheral IV Urinary Cath still in place: No Assessment/Plan Problems: (1) Acute exacerbation of chronic obstructive pulmonary disease (COPD) Status: Acute Comment: Patient presents with progressive cough, shortness of breath and weakness. Most likely due to COPD exacerbation. Will start xopenex HHN and solumedrol for empirical treatment. (2) Acute bronchitis Status: Acute Comment: Chest xray is clear on admission, will recheck after hydration but start Levaquin for probable bronchitis. Use tessalon perle along with cough syrup for symptom control. (3) Hypertension Status: Acute Comment: Patient had markedly elevated bp in ER without previous history of hypertension. Will monitor bp in house. Rule out for cardiac event with troponins and echo. Use clonidine if needed. (4) Chest pain Status: Acute Comment: Patient's chest pain is localized to the chest wall where a subcutaneous nodule is . Will check with Dr. Cordova regarding latest PET scan. For now will complete work up for cardiac etiology of chest pain. (5) Weakness Status: Acute Comment: Patient has been getting progressively weaker over the past year but she was able to walk into my office 3 weeks ago for follow up before current coughing and dyspnea episode started. Will treat current acute copd flare, hydrate and transfuse if necessary and start physical therapy for deconditioning. (6) Dehydration Status: Acute Comment: gentle hydration for now. (7) Anorexia Status: Acute Comment: control cough/ nausea and request dietary consult. (8) Anemia Comment: Acute on chronic anemia. May be due to chemotherapy plus nutritional deficiency. Will check iron, b12 status and follow hb/ hct. Transfuse if necessary. HPI/ROS Admit Date/Time Admit Date/Time Dec 15, 2016 at 22:22 Hx of Present Illness Patient with history of breast and lung cancer has been undergoing chemotherapy under Dr. Cordova presents with progressive cough and weakness over the past 3 weeks. Denies fever, chills, sorethroat, earache or URI symptoms. Patient has been using benzonatate and tussionex at home but still coughing so much she sometimes vomits. Appetite has been poor and patient is losing weight. In the ER, patient was noted to have severe hypertension requiring Nicardipine as well as mild fever and hypoxia. Patient is admitted for work up and treatment of progressive weakness, probable COPD exacerbation with acute bronchitis. ROS Constitutional: poor po, weight change Eyes: no complaints ENT: dysphagia Respiratory: cough, shortness of breath, sputum Cardiovascular: chest pain, edema (on and off) Gastrointestinal: constipation, decreased appetite Genitourinary: no complaints Musculoskeletal: bone/joint pain, other (left anterior chest wall lump) Skin: no complaints Neurologic: no complaints Endocrine: polyuria, temp intolerance, weight change Psychological: no complaints Immunologic: no complaints PMH/Family/Social Past Medical History 1. Lung cancer 2. Breast cancer 3. COPD 4. Lumbar degenerative disc disease 5. Hand osteoarthritis 6. Osteoporosis 7. Insomnia 8. Constipation 9. Recurrent herpes zoster. 10. Allergic rhinitis Family History Significant Family History: cancer (father at 63yo of lung cancer, mother at 83 yo of colon cancer.) Social History Alcohol Use: occasionally Smoking Status: Former smoker Drug Use: marijuana Exam/Review of Systems Vital Signs Vitals Vital Signs Date Time Temp Pulse Resp B/P Pulse Ox O2 Delivery O2 Flow Rate FiO2 12/16/16 01:14 98.3 75 17 124/64 95 Room Air Intake and Output 12/15/16 12/15/16 12/16/16 15:00 23:00 07:00 Intake Total 580 ml Balance 580 ml Exam Exam Thin, cachetic female in no acute distress. ENMT: mucosa pink and moist, nl external ears & nose Neck: non-tender, supple Respiratory: congested cough, crackles/rales, diminished breath sounds Cardiovascular: nl pulses, regular rate and rhythm Gastrointestinal: non-tender, soft Musculoskeletal: muscle weakness, nl extremities to inspection, other (left anterior chest wall 1cm subcutaneous nodule.) Neurological: nl mental status, nl speech Skin: nl turgor Labs Result Diagram: 12/15/16 1910 12/16/16 0450 Medications Medications Current Medications Dextrose/Sodium Chloride (D5-1/2ns) 1,000 ml @ 50 mls/hr Q20H IV Last administered on 12/16/16t 01:20; Admin Dose 50 MLS/HR; Start 12/15/16 at 22:29 Ondansetron HCl (Zofran Inj) 4 mg Q6H PRN IV NAUSEA AND/OR VOMITING; Start at 22:30 Zolpidem Tartrate (Ambien) 5 mg QHS PRN PO SLEEP; Start 12/15/16 at 22:30 Celecoxib (Celebrex) 400 mg DAILY PO ; Start 12/16/16 at 09:00 Magnesium Oxide (Mag-Ox 400) 400 mg DAILY PO Last administered on 12/16/16 09: 03; Admin Dose 400 MG; Start 12/16/16 at 09:00 Clonidine (Catapres) 0.1 mg TID PRN PO ELEVATED BLOOD PRESSURE Last administered on 12/15/16 23:37; Admin Dose 0.1 MG; Start 12/15/16 at 23:30 Hydromorphone HCl (Dilaudid) 4 mg Q8H PRN PO PAIN Last administered on 12:42; Admin Dose 4 MG; Start 12/16/16 at 13:00 Hydrocodone Bit/ Homatropine Methylb (Hycodan Liquid) 10 ml Q6 PRN PO COUGH Last administered on 12/16/16 15:39; Admin Dose 10 ML; Start 12/16/16 at 15:30 FERNIE BONE MD Dec 16, 2016 17:25
[2016-12-16] MEDS ORDERED: METHYLPREDNISOLONE 125 MG INJ IV ONE (18:30)
[2016-12-16] MEDS: LEVOFLOXACIN 500MG/D5W (PMX) 100 ML IVPB SCH (19:35)
[2016-12-16 19:46] VITALS: BP 134/59; RESP 18
[2016-12-16] MEDS: BENZONATATE 100 MG CAP PO SCH (20:58)
[2016-12-16] MEDS: HEPARIN 5,000 UNIT/0.5 ML VIAL SC SCH (21:08)
[2016-12-16 21:41] LABS: ADD UMIC YES; UR ASCORBIC ACID NEGATIVE (NEGATIVE); UR BILIRUBIN (Dip) NEGATIVE (NEGATIVE); UR BLOOD (Dip) NEGATIVE (NEGATIVE); UR CLARITY CLEAR (CLEAR); UR COLOR YELLOW (YELLOW); UR GLUCOSE (Dip) NEGATIVE (NEGATIVE); UR KETONES (Dip) NEGATIVE (NEGATIVE); UR LEUKOCYTE ESTERASE (Dip) TRACE Leu/ul (NEGATIVE); UR NITRITE (Dip) NEGATIVE (NEGATIVE); UR RBC 1 /HPF (0-5); UR SPECIFIC GRAVITY (Dip) 1.013 (1.003-1.030); UR TOTAL PROTEIN (Dip) NEGATIVE (NEGATIVE); UR UROBILINOGEN (Dip) NEGATIVE (NEGATIVE)
[2016-12-16] MEDS: D5-NS + KCL 20 MEQ 1,000 ML IV SCH (21:51)
[2016-12-17] VITALS (7 sets, daily range): BP systolic 126–172; BP diastolic 59–74; PULSE 73–77; RESP 18–20
[2016-12-17] MEDS: LEVALBUTEROL (NEB) 0.31 MG/3 ML AMP HHN SCH ×6 (00:02→19:41)
[2016-12-17 05:23] LABS: ABNORMAL IP MESSAGE 1; HEMATOCRIT 24.5 % (37.0-47.0); HEMOGLOBIN 8.3 g/dl (12.0-16.0); MEAN CORPUSCULAR HEMOGLOBIN 34.7 pg (29.0-33.0); MEAN CORPUSCULAR HGB CONC 33.9 g/dl (32.0-37.0); MEAN CORPUSCULAR VOLUME 102.5 fl (82.0-101.0); MEAN PLATELET VOLUME 9.5 fl (7.4-10.4); PLATELET COUNT 213 10^3/UL (140-415); RED BLOOD COUNT 2.39 10^6/ul (4.20-5.40); RED CELL DISTRIBUTION WIDTH 13.6 % (11.5-14.5); WHITE BLOOD COUNT 1.7 10^3/ul (4.8-10.8)
[2016-12-17 05:26] LABS: POSITIVE DIFF @See below
[2016-12-17 06:14] LABS: IRON 62 ug/dl (35-150)
[2016-12-17 06:23] LABS: TOTAL IRON BINDING CAPACITY 236 ug/dl (241-421)
[2016-12-17 06:46] LABS: FOLATE 19.5 ng/ml (2.8-20.0)
[2016-12-17] MEDS ORDERED: LEVALBUTEROL (NEB) 0.63 MG/3 ML AMP ONE (08:35)
[2016-12-17 09:09] LABS: ALANINE AMINOTRANSFERASE 25 IU/L (13-69); ALBUMIN 3.1 g/dl (3.3-4.9); ALKALINE PHOSPHATASE 61 IU/L (42-121); ASPARTATE AMINO TRANSFERASE 23 IU/L (15-46); BLOOD UREA NITROGEN 22 mg/dl (7-20); CALCIUM 8.5 mg/dl (8.4-10.2); CARBON DIOXIDE 26 mmol/L (21-31); CHLORIDE 102 mmol/L (97-110); TOTAL PROTEIN 6.2 g/dl (6.1-8.1)
[2016-12-17 09:14] LABS: ANISOCYTOSIS 1+ (0-0); GIANT THROMBO% (M) 1 % (0-0); MONOCYTES % (M) 5 % (0-11); PLATELET ESTIMATE NORMAL; POLYCHROMASIA 1+ (0-0); REACTIVE LYMPHOCYTES% (M) 1 % (0-0)
[2016-12-17 09:21] LABS: ANION GAP 10 (8-16); SODIUM 133 mmol/L (135-144)
[2016-12-17 09:57] LABS: TROPONIN-I < 0.012 ng/ml (0.00-0.12)
[2016-12-17] MEDS: TIOTROPIUM 18 MCG CAPSULE INHA DEV INH SCH (09:57)
[2016-12-17] MEDS: MAGNESIUM OXIDE 400 MG TAB PO SCH (09:58)
[2016-12-17] MEDS: BENZONATATE 100 MG CAP PO SCH ×3 (09:58→20:39)
[2016-12-17] MEDS: CELECOXIB 200 MG CAP PO SCH (09:59)
[2016-12-17] MEDS: HEPARIN 5,000 UNIT/0.5 ML VIAL SC SCH ×2 (10:18→20:45)
[2016-12-17 10:20] LABS: GLUCOSE 134 mg/dl (70-220)
[2016-12-17 10:21] LABS: PREALBUMIN 15.2 mg/dl (17.6-36.0)
--- NOTE | 2016-12-17 12:54 | RADRPT ---
PROCEDURE: Chest radiograph CLINICAL INDICATION: Cough. COMPARISON: Radiograph from 12/15/2016 and to 05/2016. TECHNIQUE: Single frontal chest radiograph. FINDINGS: Overall, no interval change when allowing for differences in technique. Hyperinflation with emphysema in the upper lobes. The left costophrenic sulcus is obscured from a small effusion or atelectasis. No pneumonia identified. The heart is not enlarged. Aortic atherosclerosis. Diffuse osteopenia. IMPRESSION: 1. Chronic obstructive pulmonary disease. 2. Small left basilar opacity which may represent pleural effusion and/or atelectasis. RPTAT: [facility] Physician Thompson Date Time Electronically viewed and signed by Physician Thompson on 12/17/2016 12:54 LG/
[2016-12-17] MEDS: HYDROCODONE/HOMATROPINE 5ML CUP PO PRN (14:28)
--- NOTE | 2016-12-17 16:54 | RADRPT ---
Echocardiogram Report Patient Name: JAMIR BRUNO Gender: Female Date: 1935 Study Date: 17-Dec-2016 Customer Care Consultant: Mar [facility] Location: [id number] Ref. Physician: FERNIE BONE Quality: Adequate Procedures: Transthoracic echocardiogram with complete 2D, M-Mode, and doppler examination. Indications: Weakness, s/p chemo. 2D/M Mode Doppler Measurement Value Normal Ranges Measurement Value Normal Ranges LVIDd 2D 2.9 3.5 - 5.6 cm AV Peak Anshu 1.3 m/sec LVIDs 2D 1.8 2.1 - 4.1 cm AV Peak PG 7.0 mmHg FS 2D 38.8 % LVOT Peak Anshu 0.8 m/sec LVPWd 2D 1.3 0.6 - 1.1 cm LVOT Peak PG 3.0 mmHg IVSd 2D 1.3 0.6 - 1.1 cm MV E Peak Anshu 0.9 m/sec IVS/LVPW 2D 1.0 MV A Peak Anshu 0.9 m/sec AoR Diam 2D 2.7 2.0 - 3.7 cm MV E/A 1.0 LA/Ao 2D 1 0 - 1 MV Decel Time 201 msec EDV 2D 25.4 cm3 MV E/A 1.0 ESV 2D 5.8 cm3 TR Peak Anshu 3.0 m/sec LA Dimen 2D 3.1 2.3 - 4.0 cm TR Peak PG 36.0 mmHg RVSP 39.0 mmHg Findings Left Ventricle: Normal left ventricular systolic function. Normal left ventricular cavity size. Moderate concentric left ventricular hypertrophy. Ejection fraction is visually estimated at 65 %. Tissue Doppler/Mitral Doppler indices are consistent with impaired relaxation (Stage I diastolic dysfunction). Right Ventricle: Normal right ventricular size. Normal right ventricular systolic function. Left Atrium: The left atrium is normal in size. Right Atrium: The right atrium is normal in size. Mitral Valve: Mitral valve leaflets appear mildly thickened. Mild mitral annular calcification. Trace mitral regurgitation. Aortic Valve: Aortic sclerosis without stenosis. Trace aortic valve regurgitation. Tricuspid Valve: Normal appearance and function of the tricuspid valve with trace physiologic regurgitation. Estimated peak PA systolic pressure 39 mmHg. Pulmonic Valve: Pulmonic valve not well visualized. There is trace pulmonic regurgitation. Pericardium: Small pericardial effusion. Aorta: Normal aortic root. IVC: Normal size and normal respiratory collapse consistent with normal right atrial pressure. Conclusions 1.Normal left ventricular systolic function. Normal left ventricular cavity size. Moderate concentric left ventricular hypertrophy. Ejection fraction is visually estimated at 65 %. Tissue Doppler/Mitral Doppler indices are consistent with impaired relaxation (Stage I diastolic dysfunction). 2.Normal right ventricular size. Normal right ventricular systolic function. 3.The left atrium is normal in size. 4.The right atrium is normal in size. 5.No significant valvular stenosis or regurgitation seen. 6.Small pericardial effusion. Electronically Signed By: Kailash Martinez 17-Dec-2016 16:53:23 -0700 Patient Name: JAMIR BRUNO Study Date: 17-Dec-2016 [id number]
[2016-12-17] MEDS: D5-NS + KCL 20 MEQ 1,000 ML IV SCH ×2 (18:00→18:38)
--- NOTE | 2016-12-17 18:57 | PN ---
Date/Time of Note Date/Time of Note DATE: 12/17/16 TIME: 18:48 Assessment/Plan VTE Prophylaxis VTE Prophylaxis Intervention: heparin Lines/Catheters IV Catheter Type (from [facility]): Peripheral IV Urinary Cath still in place: No Assessment/Plan Problems: (1) Acute exacerbation of chronic obstructive pulmonary disease (COPD) Status: Acute Comment: cough and sob better on treatments . Taper down on steroid and continue levaquin / xopenex/ spiriva. (2) Anemia Status: Acute Comment: Transfuse with 1 unit PRBC today, another unit tomorrow. (3) Hypertension Status: Acute Comment: add amlodipine low dose and use clonidine prn for sbp>160. (4) Weakness Status: Acute Comment: start physical therapy tomorrow after transfusion if rbc/wbc stabilize (5) Dehydration Status: Acute Comment: improving on IVF but will hold IVF during transfusion. (6) Leukopenia Status: Acute Comment: maybe due to recent chemo but will check with Dr. Cordova. Monitor and consider neutropenic precaution. Subjective 24 Hr Interval Summary Constitutional: improved, no complaints Exam/Review of Systems Vital Signs Vitals Vital Signs Date Time Temp Pulse Resp B/P Pulse Ox O2 Delivery O2 Flow Rate FiO2 12/17/16 14:18 98.1 69 20 172/74 96 12/17/16 14:02 21 12/16/16 01:14 Room Air Intake and Output 12/16/16 12/16/16 12/17/16 15:00 23:00 07:00 Intake Total 1570 ml 800 ml Output Total 550 ml Balance 1570 ml 250 ml Exam Constitutional: alert, oriented Head: atraumatic, normocephalic ENMT: nl nasal mucosa & septum, other (oral ulcers) Respiratory: diminished breath sounds Cardiovascular: nl pulses, regular rate and rhythm Gastrointestinal: non-tender, soft Musculoskeletal: nl extremities to inspection, other (heel and sacral erythema) Results Result Diagram: 12/17/16 0456 12/17/16 0456 Results 24 hrs Laboratory Tests Test 12/16/16 19:00 12/16/16 19:40 12/17/16 04:56 Urine Color YELLOW Urine Clarity CLEAR Urine pH 7.0 Urine Specific Mildred 1.013 Urine Ketones NEGATIVE Urine Nitrite NEGATIVE Urine Bilirubin NEGATIVE Urine Urobilinogen NEGATIVE Urine Leukocyte Esterase TRACE A Urine Microscopic RBC 1 Urine Microscopic WBC 5 Urine Hemoglobin NEGATIVE Urine Glucose NEGATIVE Urine Total Protein NEGATIVE Troponin I 0.032 < 0.012 White Blood Count 1.7 #L Red Blood Count 2.39 L Hemoglobin 8.3 L Hematocrit 24.5 L Mean Corpuscular Volume 102.5 H Mean Corpuscular Hemoglobin 34.7 H Mean Corpuscular Hemoglobin Concent 33.9 Red Cell Distribution Width 13.6 Platelet Count 213 # Mean Platelet Volume 9.5 Neutrophils % Segmented Neutrophils % (Manual) 74 Lymphocytes % Lymphocytes % (Manual) 20 Reactive Lymphocytes % (Manual) 1 H Monocytes % Monocytes % (Manual) 5 Eosinophils % Basophils % Nucleated Red Blood Cells % 0.0 Neutrophils # Absolute Lymphocytes (Manual) 0.3 L Lymphocytes # Reactive Lymphocytes # 0.0 Monocytes # Absolute Monocytes (Manual) 0.0 L Eosinophils # Basophils # Nucleated Red Blood Cells # Platelet Estimate NORMAL Giant Platelets 1 H Polychromasia 1+ Anisocytosis 1+ Sodium Level 133 L Potassium Level 5.0 Chloride Level 102 Carbon Dioxide Level 26 Anion Gap 10 Blood Urea Nitrogen 22 H Creatinine 1.10 H Glucose Level 134 Calcium Level 8.5 Iron Level 62 Total Iron Binding Capacity 236 L Percent Iron Saturation 26 Total Bilirubin 0.0 L Direct Bilirubin 0.00 Indirect Bilirubin 0.0 Aspartate Amino Transf (AST/SGOT) 23 Alanine Aminotransferase (ALT/SGPT) 25 Alkaline Phosphatase 61 Total Protein 6.2 Albumin 3.1 L Globulin 3.10 Albumin/Globulin Ratio 1.00 Prealbumin 15.2 L Vitamin B12 Level > 1000 H Folate 19.5 Thyroid Stimulating Hormone (TSH) 1.260 Medications Medications Current Medications Ondansetron HCl (Zofran Inj) 4 mg Q6H PRN IV NAUSEA AND/OR VOMITING; Start at 22:30 Zolpidem Tartrate (Ambien) 5 mg QHS PRN PO SLEEP; Start 12/15/16 at 22:30 Celecoxib (Celebrex) 400 mg DAILY PO Last administered on 12/17/16 09:59; Admin Dose 400 MG; Start 12/16/16 at 09:00 Magnesium Oxide (Mag-Ox 400) 400 mg DAILY PO Last administered on 12/17/16 09: 58; Admin Dose 400 MG; Start 12/16/16 at 09:00 Clonidine (Catapres) 0.1 mg TID PRN PO ELEVATED BLOOD PRESSURE Last administered on 12/15/16 23:37; Admin Dose 0.1 MG; Start 12/15/16 at 23:30 Hydromorphone HCl (Dilaudid) 4 mg Q8H PRN PO PAIN Last administered on 12:42; Admin Dose 4 MG; Start 12/16/16 at 13:00 Hydrocodone Bit/ Homatropine Methylb (Hycodan Liquid) 10 ml Q6 PRN PO COUGH Last administered on 12/17/16 14:28; Admin Dose 10 ML; Start 12/16/16 at 15:30 Benzonatate 100 mg 100 mg TID PO Last administered on 12/17/16 09:58; Admin Dose 100 MG; Start 12/16/16 at 21:00 Levofloxacin/ Dextrose (Levaquin 500mg/ D5W 100 ml (Pmx)) 100 ml @ 100 mls/hr Q24H IVPB Last administered on 12/16/16 19:35; Admin Dose 100 MLS/HR; Start at 20:00 Tiotropium [place] (Spiriva) 1 inh DAILY INH Last administered on 12/17/16 09: 57; Admin Dose 1 INH; Start 12/17/16 at 09:00 Heparin Sodium (Porcine) 5000 unit 5,000 unit BID SC Last administered on 10:18; Admin Dose 5,000 UNIT; Start 12/16/16 at 21:00 Potassium Chloride/Dextrose/ Sod Cl (D5-NS + KCl 20 Meq) 1,000 ml @ 50 mls/hr Q20H IV Last administered on 12/17/16 18:38; Admin Dose 50 MLS/HR; Start 12/16 at 22:00 FERNIE BONE MD Dec 17, 2016 18:57
[2016-12-17] MEDS ORDERED: DIPHENHYDRAMINE 25 MG CAP PO ONE (19:00)
[2016-12-17] MEDS ORDERED: METHYLPREDNISOLONE 40 MG INJ IV ONE (20:00)
[2016-12-17] MEDS: LEVOFLOXACIN 500MG/D5W (PMX) 100 ML IVPB SCH (20:07)
[2016-12-17] MEDS: ACYCLOVIR 200 MG CAP PO SCH (20:40)
[2016-12-17] MEDS: HYDROmorphONE 2 MG TAB PO PRN (23:01)
[2016-12-18] VITALS (9 sets, daily range): BP systolic 140–173; BP diastolic 65–81; PULSE 63–76; RESP 18–20
[2016-12-18] MEDS: LEVALBUTEROL (NEB) 0.31 MG/3 ML AMP HHN SCH ×4 (02:00→19:58)
[2016-12-18 05:18] LABS: ABNORMAL IP MESSAGE 1; BASOPHILS % 0.4 % (0.0-2.0); HEMATOCRIT 27.9 % (37.0-47.0); LYMPHOCYTES # 0.3 10^3/ul (0.8-2.9); LYMPHOCYTES % 11.6 % (15.0-51.0); MEAN PLATELET VOLUME 9.5 fl (7.4-10.4); MONOCYTE # 0.1 10^3/ul (0.3-0.9); MONOCYTES % 5.2 % (0.0-11.0); NEUTROPHIL # 2.1 10^3/ul (1.6-7.5); NEUTROPHILS % 82.4 % (39.0-77.0); PLATELET COUNT 244 10^3/UL (140-415); RED BLOOD COUNT 2.71 10^6/ul (4.20-5.40); RED CELL DISTRIBUTION WIDTH 17.8 % (11.5-14.5)
[2016-12-18 05:32] LABS: CREATININE 0.93 mg/dl (0.44-1.00); POTASSIUM 4.6 mmol/L (3.5-5.1)
[2016-12-18 05:40] LABS: HEMOGLOBIN 11.3 g/dl (12.0-16.0); MEAN CORPUSCULAR HEMOGLOBIN 41.7 pg (29.0-33.0); MEAN CORPUSCULAR HGB CONC 40.5 g/dl (32.0-37.0); POSITIVE DIFF @See below
[2016-12-18 05:44] LABS: WHITE BLOOD COUNT 2.5 10^3/ul (4.8-10.8)
[2016-12-18] MEDS ORDERED: AMLODIPINE 2.5 MG TAB PO SCH (09:00)
[2016-12-18] MEDS: BENZONATATE 100 MG CAP PO SCH ×3 (11:49→21:23)
[2016-12-18] MEDS: MAGNESIUM OXIDE 400 MG TAB PO SCH (11:49)
[2016-12-18] MEDS: ACYCLOVIR 200 MG CAP PO SCH ×3 (11:50→21:23)
[2016-12-18] MEDS: CELECOXIB 200 MG CAP PO SCH (11:50)
[2016-12-18] MEDS: HEPARIN 5,000 UNIT/0.5 ML VIAL SC SCH ×2 (12:06→21:25)
[2016-12-18] MEDS: TIOTROPIUM 18 MCG CAPSULE INHA DEV INH SCH (12:19)
--- NOTE | 2016-12-18 17:39 | PN ---
Date/Time of Note Date/Time of Note DATE: 12/18/16 TIME: 17:39 Assessment/Plan VTE Prophylaxis VTE Prophylaxis Intervention: heparin Lines/Catheters [facility] Saline Lock Urinary Cath still in place: No Assessment/Plan Problems: (1) Muscle spasm Status: Acute Comment: may be due to medication side effects. doubt if mild hypocalcemia is the cause but will check magnesium and calcium/albumin. hold amlodipine and use soma for tonight. continue to reduce steroids and levaquin dosage. (2) Urinary tract infection Status: Acute Comment: cont levaquin, change to oral low dose. (3) Acute exacerbation of chronic obstructive pulmonary disease (COPD) Status: Acute Comment: reduce xopenex hhn, change solumedrol to prednisone. (4) Anemia Status: Acute Comment: transfuse 1 more PRBC today. (5) Hypertension Status: Acute Comment: hold amlodipine, continue clonidine prn for now (6) Weakness Status: Acute Comment: start physical therapy. Subjective 24 Hr Interval Summary Free Text/Dictation patient feels well, less cough past 2 days. New muscle twitchings today. Exam/Review of Systems Vital Signs Vitals Vital Signs Date Time Temp Pulse Resp B/P Pulse Ox O2 Delivery O2 Flow Rate FiO2 12/18/16 15:19 97.8 20 140/78 95 12/18/16 14:23 72 21 12/18/16 05:30 Room Air Intake and Output 12/17/16 12/17/16 12/18/16 14:59 22:59 06:59 Intake Total 1480 ml 890 ml Output Total 800 ml 600 ml Balance 680 ml 290 ml Exam Constitutional: alert, oriented Head: atraumatic, normocephalic ENMT: mucosa pink and moist, nl external ears & nose Respiratory: clear to auscultation, diminished breath sounds Cardiovascular: regular rate and rhythm Gastrointestinal: non-tender, soft Extremities: normal pulses Skin: nl turgor Results Result Diagram: 12/18/16 0446 12/18/16445 Results 24 hrs Laboratory Tests Test 12/18/16 04:46 12/18/16 05:40 White Blood Count 2.5 #L Red Blood Count 2.71 L Hemoglobin 11.3 #L Hematocrit 27.9 L Mean Corpuscular Volume 103.0 H Mean Corpuscular Hemoglobin 41.7 #H Mean Corpuscular Hemoglobin Concent 40.5 H Red Cell Distribution Width 17.8 #H Platelet Count 244 Mean Platelet Volume 9.5 Neutrophils % 82.4 H Lymphocytes % 11.6 L Monocytes % 5.2 Eosinophils % 0.0 Basophils % 0.4 Nucleated Red Blood Cells % 0.0 Neutrophils # 2.1 Lymphocytes # 0.3 L Monocytes # 0.1 L Eosinophils # 0.0 Basophils # 0.0 Nucleated Red Blood Cells # 0.0 Sodium Level 137 Potassium Level 4.6 Chloride Level 106 Carbon Dioxide Level 24 Anion Gap 12 Blood Urea Nitrogen 19 Creatinine 0.93 Glucose Level 111 Calcium Level 8.0 L Lab Scanned Report BLOOD TRANSFUSION Medications Medications Current Medications Ondansetron HCl (Zofran Inj) 4 mg Q6H PRN IV NAUSEA AND/OR VOMITING; Start at 22:30 Zolpidem Tartrate (Ambien) 5 mg QHS PRN PO SLEEP; Start 12/15/16 at 22:30 Celecoxib (Celebrex) 400 mg DAILY PO Last administered on 12/18/16 11:50; Admin Dose 400 MG; Start 12/16/16 at 09:00 Magnesium Oxide (Mag-Ox 400) 400 mg DAILY PO Last administered on 12/18/16 11: 49; Admin Dose 400 MG; Start 12/16/16 at 09:00 Clonidine (Catapres) 0.1 mg TID PRN PO ELEVATED BLOOD PRESSURE Last administered on 12/15/16 23:37; Admin Dose 0.1 MG; Start 12/15/16 at 23:30 Hydromorphone HCl (Dilaudid) 4 mg Q8H PRN PO PAIN Last administered on 23:01; Admin Dose 4 MG; Start 12/16/16 at 13:00 Hydrocodone Bit/ Homatropine Methylb (Hycodan Liquid) 10 ml Q6 PRN PO COUGH Last administered on 12/17/16 14:28; Admin Dose 10 ML; Start 12/16/16 at 15:30 Benzonatate 100 mg 100 mg TID PO Last administered on 12/18/16 13:24; Admin Dose 100 MG; Start 12/16/16 at 21:00 Levofloxacin/ Dextrose (Levaquin 500mg/ D5W 100 ml (Pmx)) 100 ml @ 100 mls/hr Q24H IVPB Last administered on 12/17/16 20:07; Admin Dose 100 MLS/HR; Start at 20:00 Tiotropium [place] (Spiriva) 1 inh DAILY INH Last administered on 12/18/16 12: 19; Admin Dose 1 INH; Start 12/17/16 at 09:00 Heparin Sodium (Porcine) (Heparin (5000 Units/0.5 ml)) 5,000 unit BID SC Last administered on 12/18/16 12:06; Admin Dose 5,000 UNIT; Start 12/16/16 at 21:00 Acyclovir (Zovirax) 200 mg TID PO Last administered on 12/18/16 13:24; Admin Dose 200 MG; Start 12/17/16 at 21:00 Amlodipine Besylate (Norvasc) 2.5 mg DAILY PO Last administered on 12/18/16 11 :49; Admin Dose 2.5 MG; Start 12/18/16 at 09:00 Clonidine (Catapres) 0.1 mg Q4H PRN PO sbp>160 Last administered on 12/18/16 04:10; Admin Dose 0.1 MG; Start 12/17/16 at 19:00 FERNIE BONE MD Dec 18, 2016 17:39
[2016-12-18] MEDS ORDERED: predniSONE 20 MG TAB PO ONE (18:00)
[2016-12-18] MEDS ORDERED: CARISOPRODOL 350 MG TAB PO ONE (20:30)
[2016-12-18] MEDS: LEVOFLOXACIN 500MG/D5W (PMX) 100 ML IVPB SCH (21:24)
[2016-12-19] VITALS (7 sets, daily range): BP systolic 124–172; BP diastolic 66–100; PULSE 73–84; RESP 16–22
[2016-12-19] MEDS ORDERED: DIPHENHYDRAMINE 25 MG CAP ONE (00:39)
[2016-12-19] MEDS ORDERED: DIPHENHYDRAMINE 25 MG CAP PO ONE (01:00)
[2016-12-19] MEDS: ALBUTEROL 18 GM INHALER INH SCH ×3 (01:17→21:45)
[2016-12-19] MEDS: HYDROCODONE/HOMATROPINE 5ML CUP PO PRN (03:05)
[2016-12-19 05:11] LABS: ABNORMAL IP MESSAGE 1; LYMPHOCYTES # 0.3 10^3/ul (0.8-2.9); LYMPHOCYTES % 9.9 % (15.0-51.0); MEAN CORPUSCULAR HEMOGLOBIN 36.6 pg (29.0-33.0); MEAN CORPUSCULAR VOLUME 96.9 fl (82.0-101.0); MEAN PLATELET VOLUME 9.4 fl (7.4-10.4); MONOCYTE # 0.1 10^3/ul (0.3-0.9); NEUTROPHIL # 2.7 10^3/ul (1.6-7.5); NEUTROPHILS % 87.8 % (39.0-77.0); PLATELET COUNT 287 10^3/UL (140-415); RED BLOOD COUNT 3.82 10^6/ul (4.20-5.40); RED CELL DISTRIBUTION WIDTH 15.9 % (11.5-14.5)
[2016-12-19 05:58] LABS: POSITIVE DIFF @See below
[2016-12-19 06:00] LABS: MEAN CORPUSCULAR HGB CONC 37.8 g/dl (32.0-37.0)
[2016-12-19 06:19] LABS: ALBUMIN/GLOBULIN RATIO 1.14; BILIRUBIN,INDIRECT 0.2 mg/dl (0-1.1); BILIRUBIN,TOTAL 0.2 mg/dl (0.2-1.3); CALCIUM 8.3 mg/dl (8.4-10.2); CREATININE 0.78 mg/dl (0.44-1.00); MAGNESIUM 1.9 mg/dl (1.7-2.5); POTASSIUM 4.6 mmol/L (3.5-5.1); TOTAL PROTEIN 7.5 g/dl (6.1-8.1)
[2016-12-19] MEDS: LEVOFLOXACIN 250 MG TAB PO SCH (06:45)
[2016-12-19 08:09] LABS: ANISOCYTOSIS 1+ (0-0); GIANT THROMBO% (M) 2 % (0-0); MONOCYTES % (M) 2 % (0-11); PLATELET ESTIMATE NORMAL; POIKILOCYTOSIS 2+ (0-0); POLYCHROMASIA 2+ (0-0)
[2016-12-19] MEDS: ACYCLOVIR 200 MG CAP PO SCH ×3 (09:21→21:44)
[2016-12-19] MEDS: BENZONATATE 100 MG CAP PO SCH ×3 (09:21→21:44)
[2016-12-19] MEDS: MAGNESIUM OXIDE 400 MG TAB PO SCH (09:21)
[2016-12-19] MEDS: CELECOXIB 200 MG CAP PO SCH (09:21)
[2016-12-19] MEDS: TIOTROPIUM 18 MCG CAPSULE INHA DEV INH SCH (09:22)
[2016-12-19] MEDS: HEPARIN 5,000 UNIT/0.5 ML VIAL SC SCH ×2 (09:30→22:02)
[2016-12-19] MEDS: PRAMIPEXOLE 0.125 MG TAB PO SCH ×2 (13:25→21:45)
--- NOTE | 2016-12-19 15:24 | PN ---
Date/Time of Note Date/Time of Note DATE: 12/19/16 TIME: 15:23 Assessment/Plan Lines/Catheters IV C[facility] Type (from [facility] Saline Lock Urinary Cath still in place: No Exam/Review of Systems Vital Signs Vitals Vital Signs Date Time Temp Pulse Resp B/P Pulse Ox O2 Delivery O2 Flow Rate FiO2 12/19/16 12:02 98.0 70 20 124/66 96 12/19/16 05:15 Room Air 12/18/16 19:58 21 Intake and Output 12/18/16 12/18/16 12/19/16 15:00 23:00 07:00 Intake Total 1320 ml 710 ml Output Total 1050 ml 1300 ml Balance 270 ml -590 ml Results Result Diagram: 12/19/16 0444 12/19/16 0444 Results 24 hrs Laboratory Tests Test 12/19/16 04:44 White Blood Count 3.0 L Red Blood Count 3.82 #L Hemoglobin 14.0 # Hematocrit 37.0 # Mean Corpuscular Volume 96.9 Mean Corpuscular Hemoglobin 36.6 H Mean Corpuscular Hemoglobin Concent 37.8 H Red Cell Distribution Width 15.9 H Platelet Count 287 Mean Platelet Volume 9.4 Neutrophils % 87.8 H Segmented Neutrophils % (Manual) 91 H Band Neutrophils % (Manual) 1 Lymphocytes % 9.9 L Lymphocytes % (Manual) 6 L Monocytes % 2.0 Monocytes % (Manual) 2 Eosinophils % 0.0 Basophils % 0.0 Nucleated Red Blood Cells % 0.0 Neutrophils # 2.7 Neutrophils # (Manual) 2.7 Band Neutrophils # 0.0 Absolute Lymphocytes (Manual) 0.1 L Lymphocytes # 0.3 L Monocytes # 0.1 L Absolute Monocytes (Manual) 0.0 L Eosinophils # 0.0 Basophils # 0.0 Nucleated Red Blood Cells # 0.0 Platelet Estimate NORMAL Giant Platelets 2 H Polychromasia 2+ Poikilocytosis 2+ Anisocytosis 1+ Sodium Level 137 Potassium Level 4.6 Chloride Level 105 Carbon Dioxide Level 22 Anion Gap 15 Blood Urea Nitrogen 18 Creatinine 0.78 Glucose Level 127 Calcium Level 8.3 L Magnesium Level 1.9 Total Bilirubin 0.2 Direct Bilirubin 0.00 Indirect Bilirubin 0.2 Aspartate Amino Transf (AST/SGOT) 28 Alanine Aminotransferase (ALT/SGPT) 26 Alkaline Phosphatase 72 Total Protein 7.5 # Albumin 4.0 Globulin 3.50 H Albumin/Globulin Ratio 1.14 Medications Medications Current Medications Ondansetron HCl (Zofran Inj) 4 mg Q6H PRN IV NAUSEA AND/OR VOMITING; Start at 22:30 Zolpidem Tartrate (Ambien) 5 mg QHS PRN PO SLEEP; Start 12/15/16 at 22:30 Celecoxib (Celebrex) 400 mg DAILY PO Last administered on 12/19/16 09:21; Admin Dose 400 MG; Start 12/16/16 at 09:00 Magnesium Oxide (Mag-Ox 400) 400 mg DAILY PO Last administered on 12/19/16 09: 21; Admin Dose 400 MG; Start 12/16/16 at 09:00 Clonidine (Catapres) 0.1 mg TID PRN PO ELEVATED BLOOD PRESSURE Last administered on 12/15/16 23:37; Admin Dose 0.1 MG; Start 12/15/16 at 23:30 Hydromorphone HCl (Dilaudid) 4 mg Q8H PRN PO PAIN Last administered on 23:01; Admin Dose 4 MG; Start 12/16/16 at 13:00 Hydrocodone Bit/ Homatropine Methylb (Hycodan Liquid) 10 ml Q6 PRN PO COUGH Last administered on 12/19/16 03:05; Admin Dose 10 ML; Start 12/16/16 at 15:30 Benzonatate (Tessalon) 100 mg TID PO Last administered on 12/19/16 13:25; Admin Dose 100 MG; Start 12/16/16 at 21:00 Tiotropium [place] (Spiriva) 1 inh DAILY INH Last administered on 12/19/16 09: 22; Admin Dose 1 INH; Start 12/17/16 at 09:00 Heparin Sodium (Porcine) (Heparin (5000 Units/0.5 ml)) 5,000 unit BID SC Last administered on 12/19/16 09:30; Admin Dose 5,000 UNIT; Start 12/16/16 at 21:00 Acyclovir (Zovirax) 200 mg TID PO Last administered on 12/19/16 13:25; Admin Dose 200 MG; Start 12/17/16 at 21:00 Clonidine (Catapres) 0.1 mg Q4H PRN PO sbp>160 Last administered on 12/19/16 09:30; Admin Dose 0.1 MG; Start 12/17/16 at 19:00 Levofloxacin (Levaquin) 250 mg DAILY@06 PO Last administered on 12/19/16 06:45 ; Admin Dose 250 MG; Start 12/19/16 at 06:00 Albuterol (Ventolin Hfa) 2 puff BID INH Last administered on 12/19/16 09:22; Admin Dose 2 PUFF; Start 12/18/16 at 21:00 Pramipexole (Mirapex) 0.125 mg BID PO Last administered on 12/19/16 13:25; Admin Dose 0.125 MG; Start 12/19/16 at 11:30 FERNIE BONE MD Dec 19, 2016 15:24
[2016-12-19] MEDS ORDERED: LEVO250T35 PO (18:13)
[2016-12-19] MEDS ORDERED: ACYC200C2 PO (18:13)
[2016-12-19] MEDS ORDERED: PRAM0.1224 PO (18:13)
[2016-12-19] MEDS ORDERED: MED4DP PO (18:13)
[2016-12-19] MEDS ORDERED: TIOT18CA INH (18:13)
[2016-12-19] MEDS ORDERED: ZOLP5TAB PO (18:13)
[2016-12-19] MEDS ORDERED: CLON0.1T14 PO (18:13)
--- NOTE | 2016-12-19 18:36 | DS ---
Date/Time of Note Date/Time of Note DATE: 12/19/16 TIME: 18:17 Discharge Summary Admission/Discharge Info Admit Date/Time Dec 17, 2016 at 09:08 Discharge Date/Time Dec 20, 2016 Discharge Diagnosis 1. COPD exacerbation 2. Acute bronchitis 3. Urinary tract infection 4. Weakness 5. Anemia 6. High blood pressure 7. Restless leg syndrome 8. Lumbar spine degenerative disc disease 9. Lung cancer 10. Breast cancer 11. Constipation 12. Mild protein malnutrition 13. Severe calorie malnutrition 14. Anorexia Patient Condition: Fair Consults Emergency Medical Service Manager Physical therapy Procedures 2d-echo Hx of Present Illness Patient with history of breast and lung cancer has been undergoing chemotherapy under Dr. Cordova presents with progressive cough and weakness over the past 3 weeks. Denies fever, chills, sorethroat, earache or URI symptoms. Patient has been using benzonatate and tussionex at home but still coughing so much she sometimes vomits. Appetite has been poor and patient is losing weight. In the ER, patient was noted to have anemia, hypertension as well as mild fever and hypoxia. Patient was admitted for work up and treatment of progressive weakness, probably due to COPD exacerbation with acute bronchitis and severe anemia. Hospital Course Patient was started on IV antibiotics and steroids as well as inhalation treatment with xopenex and spiriva. She immediately stopped coughing and had no nausea during her hospital stay. She was transfused with 2 units of PRBC's on 2 consecutive days when her Hct was 24. Her weakness improved so that when she was evaluated by physical therapy she appeared to be able to transfer out of bed with assistance and front wheel walker. Patient's cultures came back notable for UTI and we changed her IV levaquin to oral levaquin for 10 day course. Patient had episodic elevated blood pressure during hospital course thought to be due to steroid, stress or transfusion reaction. Will continue to monitor to see if this persist. If so , we'll start on clonidine atc. She also had recurrence of restless leg syndrome possibly due to nebulizer and spiriva which was controlled on low dose mirapex. Since patient is still weak and lives alone, we will transfer her to [facility] for continued rehab of weakness/ deconditioning and complete course of copd and uti treatment. Home Meds Reported Medications Polyethylene Glycol 3350 (POLYETHYLENE GLYCOL 3350) 1 Gm Granules, 1 GM MC 12/16/16 Folic Acid* (Folic Acid*) 1 Mg Tablet, 1 MG PO DAILY, TAB 12/16/16 Benzonatate* (Benzonatate*) 200 Mg Capsule, 200 MG PO TID Y for COUGH, CAP 12/16/16 Sennosides/Docusate Sodium (Senna Laxative Tablet) 1 Each Tablet, 2 EACH PO DAILY, TAB 12/16/16 Metoclopramide* (Reglan*) 10 Mg Tablet, 10 MG PO TID, TAB 12/16/16 Anastrozole* (Arimidex*) 1 Mg Tablet, 1 MG PO DAILY, #30 TAB 04/25/16 Multivitamins* (Theragran*) 1 Tab Tab, 1 TAB PO DAILY, TAB 04/25/16 Albuterol Sulfate* (Ventolin HFA*) 18 Gm Hfa.aer.ad, 2 PUFF INHALATION DIRECTED, #1 INHALER 04/25/16 Celecoxib* (Celebrex*) 200 Mg Capsule, 400 MG PO DAILY, CAP 04/25/16 Hydromorphone Hcl* (Dilaudid*) 4 Mg Tablet, 4 MG PO Q8 Y for PAIN, TAB 04/25/16 Morphine Sulfate* (Oramorph SR*) 30 Mg Tablet.sa, 30 MG PO Q12, TAB.SA 04/25/16 Magnesium Oxide* (Magnesium Oxide*) 400 Mg Tablet, 400 MG PO DAILY, TAB 04/25/16 Cholecalciferol (Vitamin D3) (VITAMIN D-3) 2,000 Unit Capsule, 2000 UNIT PO DAILY 03/31/14 Follow-up Plan Dr. Hernandez will follow patient at [facility]. Primary Care Provider Fernie Hernandez MD Time spent on discharge: > 30 minutes Pending Labs Laboratory Tests Test 12/19/16 04:44 White Blood Count 3.010^3/ul (4.8-10.8) Red Blood Count 3.8210^6/ul (4.20-5.40) Hemoglobin 14.0g/dl (12.0-16.0) Hematocrit 37.0% (37.0-47.0) Mean Corpuscular Volume 96.9fl (82.0-101.0) Mean Corpuscular Hemoglobin 36.6pg (29.0-33.0) Mean Corpuscular Hemoglobin Concent 37.8g/dl (32.0-37.0) Red Cell Distribution Width 15.9% (11.5-14.5) Platelet Count 19047^3/UL (140-415) Mean Platelet Volume 9.4fl (7.4-10.4) Neutrophils % 87.8% (39.0-77.0) Segmented Neutrophils % (Manual) 91% (39-77) Band Neutrophils % (Manual) 1% (0-4) Lymphocytes % 9.9% (15.0-51.0) Lymphocytes % (Manual) 6% (15-51) Monocytes % 2.0% (0.0-11.0) Monocytes % (Manual) 2% (0-11) Eosinophils % 0.0% (0.0-7.0) Basophils % 0.0% (0.0-2.0) Nucleated Red Blood Cells % 0.0/100WBC (0.0-0.0) Neutrophils # 2.710^3/ul (1.6-7.5) Neutrophils # (Manual) 2.710^3/ul (1.7-7.5) Band Neutrophils # 0.010^3/ul (0.0-0.6) Absolute Lymphocytes (Manual) 0.110^3/ul (0.8-2.9) Lymphocytes # 0.310^3/ul (0.8-2.9) Monocytes # 0.110^3/ul (0.3-0.9) Absolute Monocytes (Manual) 0.010^3/ul (0.3-0.9) Eosinophils # 0.010^3/ul (0.0-0.5) Basophils # 0.010^3/ul (0.0-0.1) Nucleated Red Blood Cells # 0.010^3/ul (0.0-0.0) Platelet Estimate NORMAL Giant Platelets 2% (0-0) Polychromasia 2+ (0-0) Poikilocytosis 2+ (0-0) Anisocytosis 1+ (0-0) Sodium Level 137mmol/L (135-144) Potassium Level 4.6mmol/L (3.5-5.1) Chloride Level 105mmol/L (97-110) Carbon Dioxide Level 22mmol/L (21-31) Anion Gap 15 (8-16) Blood Urea Nitrogen 18mg/dl (7-20) Creatinine 0.78mg/dl (0.44-1.00) Glucose Level 127mg/dl (70-220) Calcium Level 8.3mg/dl (8.4-10.2) Magnesium Level 1.9mg/dl (1.7-2.5) Total Bilirubin 0.2mg/dl (0.2-1.3) Direct Bilirubin 0.00mg/dl (0.00-0.20) Indirect Bilirubin 0.2mg/dl (0-1.1) Aspartate Amino Transf (AST/SGOT) 28IU/L (15-46) Alanine Aminotransferase (ALT/SGPT) 26IU/L (13-69) Alkaline Phosphatase 72IU/L (42-121) Total Protein 7.5g/dl (6.1-8.1) Albumin 4.0g/dl (3.3-4.9) Globulin 3.50g/dl (1.3-3.2) Albumin/Globulin Ratio 1.14 FERNIE HERNANDEZ MD Dec 19, 2016 18:33
[2016-12-19] MEDS: HYDROmorphONE 2 MG TAB PO PRN (21:44)
[2016-12-20 02:18] VITALS: BP 139/77; RESP 19
[2016-12-20] MEDS: LEVOFLOXACIN 250 MG TAB PO SCH (05:30)
[2016-12-20] MEDS: HYDROmorphONE 2 MG TAB PO PRN (05:33)
[2016-12-20 08:13] VITALS: BP 154/68; RESP 20
[2016-12-20] MEDS: ALBUTEROL 18 GM INHALER INH SCH (09:00)
[2016-12-20] MEDS: CELECOXIB 200 MG CAP PO SCH (09:02)
[2016-12-20] MEDS: BENZONATATE 100 MG CAP PO SCH ×2 (09:02→13:31)
[2016-12-20] MEDS: PRAMIPEXOLE 0.125 MG TAB PO SCH (09:02)
[2016-12-20] MEDS: TIOTROPIUM 18 MCG CAPSULE INHA DEV INH SCH (09:03)
[2016-12-20] MEDS: MAGNESIUM OXIDE 400 MG TAB PO SCH (09:03)
[2016-12-20] MEDS: ACYCLOVIR 200 MG CAP PO SCH ×2 (09:03→13:31)
[2016-12-20] MEDS: HEPARIN 5,000 UNIT/0.5 ML VIAL SC SCH (09:06)
[2016-12-20] MEDS ORDERED: HYDROmorphONE 2 MG TAB PO PRN (12:00)
[2016-12-20 16:37] VITALS: BP 149/68
== END 2016-12-20 16:40 | DRG 190 ==
LOC: E/R 18:14 → MS1 22:22 → OBSVTOIN 12-17 09:08
PROVIDERS: ADMIT Internal Medicine; ATTEND Internal Medicine
DX: J44.1 Chronic obstructive pulmonary disease with (acute) exacerbation (principal); E43 Unspecified severe protein-calorie malnutrition; E86.0 Dehydration; C34.90 Malignant neoplasm of unspecified part of unspecified bronchus or lung; N39.0 Urinary tract infection, site not specified; R63.0 Anorexia; Z68.1 Body mass index [BMI] 19.9 or less, adult; J20.9 Acute bronchitis, unspecified; J44.0 Chronic obstructive pulmonary disease with (acute) lower respiratory infection; Z85.3 Personal history of malignant neoplasm of breast; R07.89 Other chest pain; D64.9 Anemia, unspecified; D72.819 Decreased white blood cell count, unspecified; M62.838 Other muscle spasm
CPT/HCPCS: 36415; 36430; 71010; 80048; 80053; 81001; 82607; 82746; 83540; 83735; 83921; 84134; 84443; 84484; 85025; 86850; 86900; 86901; 86920; 87040; 87081; 87086; 93005; 93306; 94640; 94664; 97116; 97163; G0378; J1170; J1644; J1956; J2405; J2920; J2930; J3480; J7030; J7042; J7512; P9016

== ENCOUNTER 2017-02-17 15:02 | Inpatient (IN) | payer MEDICARE, OTHER ==
[~2017-02-17] VITALS: Ht 152.4 cm; Wt 36.5 kg
[~2017-02-17 15:02] MED LIST changes: +ACYC200C2 PO; +BENZ200C43 PO; -CELE200C PO; +CLON0.1T14 PO; +FOLI-49 PO; -HYDR4TAB51 PO; +LEVO250T35 PO; +MED4DP PO; +POLY1GRA MC; +PRAM0.1224 PO; +SENN-59 PO; +TIOT18CA INH; +ZOLP5TAB PO
--- NOTE | 2017-02-17 16:08 | ERD ---
ER Documentation Chief Complaint Chief Complaint I'm having a hard time breathing chest pressure/tightness unprovoked x1 day HPI 81-year-old woman with a history of COPD and breast cancer with metastasis to the lungs presents with pressure-like chest discomfort beginning last night and continuing until this morning. She also complains of wheezing but states the pressure-like chest discomfort is separate from her COPD exacerbations. She states last chemotherapy was a few months ago, she denies fevers or chills, no vomiting or diarrhea, no loss of consciousness, no headache or blurry vision, no calf or leg swelling. Her chest pressure has been unprovoked, constant, 8 , nonradiating. ROS All systems reviewed and are negative except as per history of present illness. Medications Home Meds Active Scripts Pramipexole* (Mirapex*) 0.125 Mg Tablet, 0.125 MG PO BID for 30 Days, #60 TAB Prov:FERNIE BONE MD 12/19/16 Clonidine Hcl* (Catapres*) 0.1 Mg Tablet, 0.1 MG PO TID Y for ELEVATED BLOOD PRESSURE for 30 Days, #30 TAB Prov:FERNIE BONE MD 12/19/16 Tiotropium Eccles* (Spiriva*) 18 Mcg Cap.w.dev, 1 INH INH DAILY for 30 Days, # 30 CAP Prov:FERNIE BONE MD 12/19/16 Reported Medications Morphine Sulfate* (Ms Contin*) 15 Mg Tablet.sa, 15 MG PO Q12, TAB 02/17/17 Metoclopramide Hcl* (Metoclopramide Hcl*) 10 Mg Tablet, 10 MG PO TID for NAUSEA AND/OR VOMITING, TAB 02/17/17 Polyethylene Glycol 3350 (POLYETHYLENE GLYCOL 3350) 1 Gm Granules, 1 GM MC 12/16/16 Folic Acid* (Folic Acid*) 1 Mg Tablet, 1 MG PO DAILY, TAB 12/16/16 Sennosides/Docusate Sodium (Senna Laxative Tablet) 1 Each Tablet, 2 EACH PO DAILY, TAB 12/16/16 Anastrozole* (Arimidex*) 1 Mg Tablet, 1 MG PO DAILY, #30 TAB 04/25/16 Albuterol Sulfate* (Ventolin HFA*) 18 Gm Hfa.aer.ad, 2 PUFF INHALATION DIRECTED, #1 INHALER 04/25/16 Magnesium Oxide* (Magnesium Oxide*) 400 Mg Tablet, 400 MG PO DAILY, TAB 04/25/16 Cholecalciferol (Vitamin D3) (VITAMIN D-3) 2,000 Unit Capsule, 2000 UNIT PO DAILY 03/31/14 Discontinued Reported Medications Benzonatate* (Benzonatate*) 200 Mg Capsule, 200 MG PO TID Y for COUGH, CAP 12/16/16 Multivitamins* (Theragran*) 1 Tab Tab, 1 TAB PO DAILY, TAB 04/25/16 Morphine Sulfate* (Oramorph SR*) 30 Mg Tablet.sa, 30 MG PO Q12, TAB.SA 04/25/16 Discontinued Scripts Methylprednisolone* (Medrol* DOSE PACK) 4 Mg/Dose-Pack Tab.ds.pk, 4 MG PO . DIRECTED, #1 PACKET Prov:FERNIE BONE MD 12/19/16 Zolpidem Tartrate (Ambien Dada) 5 Mg Tablet, 5 MG PO QHS Y for SLEEP for 30 Days , #30 TAB Prov:FERNIE BONE MD 12/19/16 Levofloxacin* (Levaquin*) 250 Mg Tablet, 250 MG PO DAILY@0900 for 7 Days, #7 TAB Prov:FERNIE BONE MD 12/19/16 Acyclovir* (Acyclovir*) 200 Mg Capsule, 200 MG PO TID for 30 Days, #90 CAP Prov:FERNIE BONE MD 12/19/16 Allergies Allergies: Coded Allergies: Rosebud And Derivatives (Verified Allergy, Severe, 12/19/16) Fish Containing Products (Verified Allergy, Severe, 12/19/16) no fish at all benztropine (Verified Allergy, Severe, 04/25/16) tremors badly. pineapple (Verified Allergy, Severe, severe rashes, 04/25/16) acetaminophen (Unverified Allergy, Intermediate, 04/25/16) STOMACH UPSET/VOMITING. ibuprofen (Verified Allergy, Intermediate, 04/25/16) STOMACH UPSET/VOMITING. vancomycin (Verified Allergy, Intermediate, RASH, REDNESS, 04/25/16) Penicillins (Verified Allergy, Unknown, 04/25/16) Sulfa (Sulfonamide Antibiotics) (Verified Allergy, Unknown, 04/25/16) codeine (Verified Adverse Reaction, Unknown, NV, 04/25/16) Uncoded Allergies: STRAWBERRIES (Allergy, Severe, severe rashes, 03/30/14) TOMATOES (Allergy, Severe, severe rashes, 03/30/14) plastic tape. (Allergy, Severe, 12/15/14) itchy, redness. PMhx/Soc Lung cancer, breast cancer status post chemotherapy 6 weeks ago, COPD, lumbar degenerative disc disease, osteoarthritis, osteoporosis, insomnia, constipation , allergic rhinitis, recurrent herpes zoster History of Surgery: Yes (Right and left hip (Pt does not remember when); mastectomy right (3yr ago)) Anesthesia Reaction: No Hx Neurological Disorder: No Hx Respiratory Disorders: Yes (chronic COPD with chronic bronchitis; PNA) Hx Cardiac Disorders: Yes (HTN) Hx Psychiatric Problems: No Hx Miscellaneous Medical Probl: No Hx Alcohol Use: No Hx Substance Use: No Hx Tobacco Use: No Smoking Status: Former smoker FmHx Denies Family History: No diabetes Physical Exam Vitals Vital Signs Date Time Temp Pulse Resp B/P Pulse Ox O2 Delivery O2 Flow Rate FiO2 02/17/17 16:48 105 22 94 21 02/17/17 15:48 98.2 102 18 145/75 97 Room Air 02/17/17 15:08 98.2 109 20 160/88 95 Physical Exam GENERAL: Well-developed, appears dehydrated, afebrile, tachypneic, dyspneic HEENT: Dry mucous membranes, pink conjunctiva, no cervical spine tenderness or step-off deformities, no goiter, no jaundice or icterus, extraocular movements intact without pain. No submandibular induration, and no pharyngeal erythema NEURO: Alert and oriented 3, cranial nerves II through XII intact bilaterally, pupils equal round reactive to light, no focal deficits or facial asymmetry, sensation intact distally Strength 5/5 in upper and lower extremities bilaterally CARDIAC: Tachycardic and regular, no murmurs rubs or gallops LUNGS: Poor breath sounds bilaterally, dense wheezes, no crackles or stridor ABDOMEN: Soft nontender, no guarding, no rigidity, no rebound, no psoas sign no obturator sign. Normoactive bowel sounds SKIN: Warm and dry to touch, no abrasions, contusions, or hematomas, no lacerations, no ecchymosis, no target lesions, and without ulcers EXTREMITIES: No clubbing cyanosis or edema, calves are bilaterally symmetrical, no Homans sign, no popliteal cord sign. Distal pulses equal and bilateral PSYCH: Normal affect without agitation or irritability Result Diagram: 02/17/17 1620 02/17/17 1620 Results 24 hrs Laboratory Tests Test 02/17/17 16:20 02/17/17 16:22 White Blood Count 6.410^3/ul Red Blood Count 3.1410^6/ul Hemoglobin 11.4g/dl Hematocrit 32.7% Mean Corpuscular Volume 104.1fl Mean Corpuscular Hemoglobin 36.3pg Mean Corpuscular Hemoglobin Concent 34.9g/dl Red Cell Distribution Width 14.2% Platelet Count 46659^3/UL Mean Platelet Volume 9.5fl Neutrophils % 81.1% Lymphocytes % 9.6% Monocytes % 8.2% Eosinophils % 0.5% Basophils % 0.3% Nucleated Red Blood Cells % 0.0/100WBC Neutrophils # 5.210^3/ul Lymphocytes # 0.610^3/ul Monocytes # 0.510^3/ul Eosinophils # 0.010^3/ul Basophils # 0.010^3/ul Nucleated Red Blood Cells # 0.010^3/ul Prothrombin Time 11.9Sec Prothrombin Time Ratio 0.9 INR International Normalized Ratio 0.88 Sodium Level 138mmol/L Potassium Level 3.9mmol/L Chloride Level 95mmol/L Carbon Dioxide Level 34mmol/L Anion Gap 13 Blood Urea Nitrogen 38mg/dl Creatinine 0.98mg/dl Glucose Level 98mg/dl Calcium Level 10.1mg/dl Total Bilirubin 0.2mg/dl Direct Bilirubin 0.00mg/dl Indirect Bilirubin 0.2mg/dl Aspartate Amino Transf (AST/SGOT) 35IU/L Alanine Aminotransferase (ALT/SGPT) 33IU/L Alkaline Phosphatase 82IU/L Troponin I 0.013ng/ml Total Protein 7.8g/dl Albumin 4.1g/dl Globulin 3.70g/dl Albumin/Globulin Ratio 1.10 Lipase 36U/L Blood Gas Specimen Source Blood arterial Arterial Blood Date Drawn 02/17/2017 7:00:12 PM Arterial Blood pH (Temp corrected) 7.412 Arterial Blood pCO2 (Temp correct) 40.5mmhg Arterial Blood pO2 (Temp corrected) 67.0mmHG Arterial Blood HCO3 25.2mmol/L Arterial Blood Base Excess 0.6mmol/L Arterial Blood Oxygen Saturation 92.7mmHG Dany Test ACCEPTAB Arterial Blood Gas Puncture Site Right Radial Arterial Blood Carboxyhemoglobin 0.9% Arterial Blood Methemoglobin 0.3% Blood Gas A-a O2 Differential 34.2mmHg Oxyhemoglobin Percent 91.6% Total Hemoglobin 12.7g/dl Blood Gas Temperature 37.0C Blood Gas Modality ROOM AIR FiO2 21.0% Blood Gas Notified Whom KM Blood Gas Notified Time 02/17/2017 7:16:52 PM Current Medications Medications (Trade) Dose Ordered Sig/Machelle Route PRN Reason Start Time Stop Time Status Last Admin Dose Admin Albuterol (Proventil 0.5% (Neb)) 10 mg ONCE STAT INH 02/17/17 16:20 02/17/17 16:22 DC 02/17/17 16:20 Ipratropium Eccles (Atrovent 0.02% (Neb)) 1 mg ONCE STAT INH 02/17/17 16:20 02/17/17 16:22 DC 02/17/17 16:20 Methylprednisolone Sodium Succinate 125 mg 125 mg ONCE STAT IV 02/17/17 16:20 02/17/17 16:22 DC 02/17/17 16:51 Sodium Chloride (NS) 1,000 ml @ 1,000 mls/hr Q1H STAT IV 02/17/17 16:22 02/17/17 17:21 DC 02/17/17 16:51 IV Flush 10 ml 10 ml STK-MED ONCE .ROUTE 02/17/17 17:51 02/17/17 17:52 DC 02/17/17 17:51 Sodium Chloride (NS) 100 ml @ ud STK-MED ONCE .ROUTE 02/17/17 17:51 02/17/17 17:52 DC 02/17/17 17:51 Iodixanol (Visipaque Locm) 100 ml STK-MED ONCE .ROUTE 02/17/17 17:51 02/17/17 17:52 DC 02/17/17 17:51 Procedures/MDM Patient was placed on cardiac cath technologist rhythm strip revealed a sinus tachycardia at 110 bpm. IV line was established. Patient was afebrile. EKG performed, read by me revealed a sinus tachycardia 110 bpm, normal axis, narrow QRS complex, no concerning ST elevations or depressions noted, peak T waves. One AP view of the chest performed, read by me reveals no acute infiltrates, normal mediastinum, sharp costophrenic and cardiac borders, no air under the diaphragm. Otherwise unremarkable chest x-ray. I administered 1 L normal saline intravenously, albuterol 10 mg via nebulizer, ipratropium 1 mg via nebulizer, and methylprednisolone 125 mg IV for COPD exacerbation. CBC were normal, electrolytes revealed dehydration with a BUN/creatinine of 38/1 , liver function tests were normal, troponin was negative. I administered aspirin 324 mg p.o. for cardioprotective measures. CT angiogram of the chest was performed that was negative for pulmonary embolism or aortic issues, spiculated pulmonary mass was noted consistent with her history. Please refer to radiologist dictation for full report. Critical Care: Time: 48 minutes, this was time separate from other billable procedures. Treatments/Evaluations: Close monitoring and treatment of unstable vital signs, cardiorespiratory, and neurologic status, while maintaining tight balance of fluid, respiratory, and cardiac interventions. I spoke to the patient's PMD, patient will be admitted to telemetry setting for continued medical management and further consultations. Departure Diagnosis: Primary Impression: Chest pain Chest pain type: unspecified Qualified Code: R07.9 - Chest pain, unspecified type Additional Impressions: Acute exacerbation of chronic obstructive pulmonary disease (COPD) Breast carcinoma Breast location: unspecified site of breast Estrogen receptor status: unspecified Patient sex: female Laterality: left Qualified Code: C50.912 - Carcinoma of left female breast, unspecified estrogen receptor status, unspecified site of breast Non-small cell cancer of left lung Condition: MARNIE Cruz MD Feb 17, 2017 16:08
[2017-02-17] MEDS ORDERED: IPRATROPIUM (NEB) 0.5 MG/2.5 ML AMP INH STA (16:20)
[2017-02-17] MEDS ORDERED: METHYLPREDNISOLONE 125 MG INJ IV STA (16:20)
[2017-02-17] MEDS ORDERED: ALBUTEROL 0.5% (NEB) 2.5 MG/0.5 ML AMP INH STA (16:20)
[2017-02-17] MEDS ORDERED: SOD CHLORIDE 0.9% 1,000 ML IV STA (16:22)
[2017-02-17 16:52] LABS: BASOPHILS % 0.3 % (0.0-2.0); EOSINOPHILS % 0.5 % (0.0-7.0); HEMATOCRIT 32.7 % (37.0-47.0); HEMOGLOBIN 11.4 g/dl (12.0-16.0); LYMPHOCYTES # 0.6 10^3/ul (0.8-2.9); LYMPHOCYTES % 9.6 % (15.0-51.0); MEAN CORPUSCULAR HEMOGLOBIN 36.3 pg (29.0-33.0); MEAN CORPUSCULAR HGB CONC 34.9 g/dl (32.0-37.0); MEAN CORPUSCULAR VOLUME 104.1 fl (82.0-101.0); MEAN PLATELET VOLUME 9.5 fl (7.4-10.4); MONOCYTE # 0.5 10^3/ul (0.3-0.9); MONOCYTES % 8.2 % (0.0-11.0); NEUTROPHIL # 5.2 10^3/ul (1.6-7.5); NEUTROPHILS % 81.1 % (39.0-77.0); PLATELET COUNT 223 10^3/UL (140-415); RED BLOOD COUNT 3.14 10^6/ul (4.20-5.40); RED CELL DISTRIBUTION WIDTH 14.2 % (11.5-14.5); WHITE BLOOD COUNT 6.4 10^3/ul (4.8-10.8)
--- NOTE | 2017-02-17 17:01 | RADRPT ---
PROCEDURE: XR Chest. CLINICAL INDICATION: Abdominal Pain TECHNIQUE: Single frontal view of the chest was obtained COMPARISON: Chest x-ray 12/17/2016 FINDINGS: The cardiomediastinal silhouette is within normal limits. There is atherosclerotic calcification of the aorta. Bilateral hyperinflated lungs with evidence of emphysema, most conspicuous in the upper l obes, is redemonstrated. There is improved aeration at the left lung base compared to prior study. No pneumothorax, pleural effusion, or consolidation is identified. There is no evidence of pulmonary vascular congestion. There are multilevel degenerative changes of the visualized spine. Mild left l ateral spondylolisthesis of T12 on L1 and mild compression deformity of the L1 vertebral body appear stable compared to prior study, allowing for slight differences in technique. IMPRESSION: 1. No evidence of an acute cardiopulmonary process. 2. Interval improved aeration of the left lung base. 3. Chronic obstructive pulmonary disease/emphysema, stable. 4. Thoracic aortic calcific atherosclerotic disease. 5. Multilevel degenerative changes of the visualized spine. 6. Mild left lateral spondylolisthesis of T12 on L1, stable. 7. Mild L1 vertebral body compression deformity, grossly stable. RPTAT: [facility] Physician Oscar Date Time Electronically viewed and signed by Physician Oscar on 02/17/2017 17:00 /
[2017-02-17 17:11] LABS: INR 0.88; PROTIME 11.9 Sec (12.2-14.2); PT RATIO 0.9
[2017-02-17 17:16] LABS: ALBUMIN 4.1 g/dl (3.3-4.9); ALBUMIN/GLOBULIN RATIO 1.1; BILIRUBIN,INDIRECT 0.2 mg/dl (0-1.1); BILIRUBIN,TOTAL 0.2 mg/dl (0.2-1.3); CALCIUM 10.1 mg/dl (8.4-10.2); CREATININE 0.98 mg/dl (0.44-1.00); POTASSIUM 3.9 mmol/L (3.5-5.1); TOTAL PROTEIN 7.8 g/dl (6.1-8.1)
[2017-02-17 17:26] LABS: TROPONIN-I 0.013 ng/ml (0.00-0.12)
[2017-02-17] MEDS ORDERED: SOD CHLORIDE 0.9% 100 ML ONE (17:51)
[2017-02-17] MEDS ORDERED: IODIXANOL LOCM 100 ML BTL ONE (17:51)
--- NOTE | 2017-02-17 18:49 | RADRPT ---
PROCEDURE: CTA Chest with contrast and with 3-D reconstructions CLINICAL INDICATION: Pulmonary embolism TECHNIQUE: The study was performed utilizing multidetector CT scanner. Direct spiral axial section s were obtained from the thoracic inlet to the upper abdomen with the use of intravenous contrast ma terial (100 cc of Omnipaque 350). Sagittal, coronal and 3-D reformations were obtained. The images w ere reviewed on a PACS workstation. DLP 138.47 mGycm CTDIvol 7.04, 7.04, 7.04, 49.29, 2.62 mGy One or more of the following dose reduction techniques were used: - Automated exposure control. - Adjustment of the mA and/or kV according to patient size. - Use of iterative reconstruction technique. COMPARISON: CTA chest from 05/03/2016 FINDINGS: There are no pulmonary emboli. There are trace left greater than right pleural effusions. There are moderate upper lobe - predomina nt centrilobular emphysematous changes. There is a 6 mm spiculated lesion in the posterior aspect of the right lower lobe on series 4, image 87 although it is unclear whether this lesion is new since this area was atelectatic on the prior CT study from May 2016. There is a 3.2 x 2.7 cm spiculat ed lesion in the left lower lobe on series 4, image 80 with possible bronchial invasion noted on ser ies 4, image 73 into the bronchus intermedius. There is no pneumothorax. Heart size is within normal limits. There is a new mild pericardial effusion. The aorta is within n ormal limits. There are no enlarged axillary or mediastinal lymph nodes. There is a sub-centimeter hypodensity at the hepatic dome which is too small to characterize, but is likely a cyst. Deformity of the posterior aspect of the left tenth and eleventh ribs is noted which is new since th e prior CT study from 05/03/2016 and raises the possibility of pathologic fractures. IMPRESSION: No CT evidence for pulmonary embolus. 3.2 cm spiculated lesion, likely malignancy, in the left lower lobe is again noted with new possible invasion of the bronchus intermedius as well as trace left greater than right pleural effusions. A 6 mm spiculated lesion is also identified in the right lower lobe. Comparison to a prior CT chest fr om 05/03/2016 is difficult as the lower lobes were atelectatic in that study. There is also new defo rmity of the posterior aspect of the left tenth and eleventh ribs which raises the possibility of pa thologic fractures. RPTAT: EE Amadou Dailey Physician Date Time Electronically viewed and signed by Amadou Dailey, Physician on 02/17/2017 18:49 RA/
[2017-02-17 19:16] LABS: AADO2 Arterial 34.2 mmHg (7.0-24.0); Allen Test ACCEPTAB; Arterial Base Excess 0.6 mmol/L (-3.0-3); Arterial COHb 0.9 % (0.0-3.0); Arterial Fraction of Oxyhgb 91.6 % (93.0-99.0); Arterial HCO3 25.2 mmol/L (22.0-26.0); Arterial MetHb 0.3 % (0.0-1.5); Arterial Total Hemglobin 12.7 g/dl (12.0-18.0); MODE ROOM AIR
[2017-02-17 19:21] VITALS: TEMP 98
[2017-02-17] MEDS ORDERED: ASPIRIN 81 MG TAB PO ONE (19:30)
[2017-02-17 19:34] LABS: ADD UMIC NO; UR ASCORBIC ACID 40 mg/dL (NEGATIVE); UR BILIRUBIN (Dip) NEGATIVE (NEGATIVE); UR BLOOD (Dip) NEGATIVE (NEGATIVE); UR CLARITY CLEAR (CLEAR); UR COLOR STRAW (YELLOW); UR GLUCOSE (Dip) NEGATIVE (NEGATIVE); UR KETONES (Dip) NEGATIVE (NEGATIVE); UR LEUKOCYTE ESTERASE (Dip) NEGATIVE Leu/ul (NEGATIVE); UR NITRITE (Dip) NEGATIVE (NEGATIVE); UR SPECIFIC GRAVITY (Dip) 1.018 (1.003-1.030); UR TOTAL PROTEIN (Dip) NEGATIVE (NEGATIVE); UR UROBILINOGEN (Dip) NEGATIVE (NEGATIVE)
[2017-02-17] MEDS ORDERED: MORP15TA92 PO (19:58)
[2017-02-17] MEDS ORDERED: METO10TA96 PO (19:58)
[2017-02-17] MEDS ORDERED: LEVOFLOXACIN 500 MG TAB PO ONE (20:23)
[2017-02-17] MEDS ORDERED: NITROGLYCERIN (SL) 0.4 MG TAB SL PRN (20:30)
[2017-02-17] MEDS ORDERED: ONDANSETRON 4 MG TAB PO PRN (20:30)
[2017-02-17] MEDS ORDERED: NACL 0.9% 3 ML SYG IV SCH (20:30)
[2017-02-17 20:34] VITALS: BP 185/93; RESP 18
[2017-02-17 20:57] VITALS: PULSE 114
[2017-02-17 21:00] VITALS: Ht 152.4 cm; Wt 36.5 kg
[2017-02-17] MEDS: PRAMIPEXOLE 0.125 MG TAB PO SCH (22:01)
[2017-02-18] VITALS (13 sets, daily range): BP systolic 120–168; BP diastolic 65–87; PULSE 85–114; RESP 16–21
[2017-02-18] MEDS ORDERED: LEVALBUTEROL (NEB) 0.63 MG/3 ML AMP HHN SCH
[2017-02-18] MEDS: HYDROmorphONE 0.5 MG/0.5 ML SYG IV PRN ×3 (07:54→21:08)
[2017-02-18] MEDS ORDERED: METHYLPREDNISOLONE 125 MG INJ IV SCH (09:00)
[2017-02-18] MEDS: LEVALBUTEROL (NEB) 0.63 MG/3 ML AMP HHN SCH ×3 (09:02→19:14)
[2017-02-18] MEDS: TIOTROPIUM 18 MCG CAPSULE INHA DEV INH SCH (09:17)
[2017-02-18] MEDS: PRAMIPEXOLE 0.125 MG TAB PO SCH ×2 (09:18→20:58)
[2017-02-18] MEDS: ASPIRIN 81 MG TAB PO SCH (09:18)
[2017-02-18] MEDS: ANASTROZOLE 1 MG TAB PO SCH (09:21)
[2017-02-18] MEDS: ENOXAPARIN 30 MG/0.3 ML SYG SC SCH (09:22)
[2017-02-18 10:26] LABS: BASOPHILS % 0.2 % (0.0-2.0); EOSINOPHILS % 0.4 % (0.0-7.0); HEMATOCRIT 29.8 % (37.0-47.0); HEMOGLOBIN 10.3 g/dl (12.0-16.0); LYMPHOCYTES # 0.7 10^3/ul (0.8-2.9); LYMPHOCYTES % 13.1 % (15.0-51.0); MEAN CORPUSCULAR HGB CONC 34.6 g/dl (32.0-37.0); MEAN CORPUSCULAR VOLUME 98.3 fl (82.0-101.0); MEAN PLATELET VOLUME 9.3 fl (7.4-10.4); MONOCYTE # 0.6 10^3/ul (0.3-0.9); MONOCYTES % 12.7 % (0.0-11.0); NEUTROPHIL # 3.7 10^3/ul (1.6-7.5); NEUTROPHILS % 73.2 % (39.0-77.0); PLATELET COUNT 200 10^3/UL (140-415); RED BLOOD COUNT 3.03 10^6/ul (4.20-5.40); RED CELL DISTRIBUTION WIDTH 14.5 % (11.5-14.5)
[2017-02-18 10:27] LABS: ALBUMIN 3.5 g/dl (3.3-4.9); ALBUMIN/GLOBULIN RATIO 1.06; BILIRUBIN,INDIRECT 0.3 mg/dl (0-1.1); BILIRUBIN,TOTAL 0.3 mg/dl (0.2-1.3); CALCIUM 9.3 mg/dl (8.4-10.2); CREATININE 0.91 mg/dl (0.44-1.00); TOTAL PROTEIN 6.8 g/dl (6.1-8.1)
--- NOTE | 2017-02-18 17:07 | HP ---
Date/Time of Note Date/Time of Note DATE: 02/18/17 TIME: 17:00 Assessment/Plan VTE Prophylaxis VTE Prophylaxis Intervention: LMWH Lines/Catheters IV [facility] Saline Lock Assessment/Plan Problems: (1) Chest pain Status: Acute Comment: Patient's chest pain may be due to the rib cage lesions noted on chest ct but since she did have mild elevation in troponins and a mild diastolic dysfunction on recent echocardiogram, I will consult Cardiology for further work up. Patient reports that she does have history of rib fractures many years ago but still may need work up for metastatic disease due to her multiple neoplasms. Qualifiers: Chest pain type: unspecified Qualified Code: R07.9 - Chest pain, unspecified type (2) Acute exacerbation of chronic obstructive pulmonary disease (COPD) Status: Acute Comment: improving on nebulizer treatment, will taper steroid and d/c antibiotics if cultures are negative. (3) Breast carcinoma Status: Chronic Comment: Check with Dr. Cordova regarding recent PET scan and further treatment plan. Qualifiers: Breast location: unspecified site of breast Estrogen receptor status: unspecified Patient sex: female Laterality: left Qualified Code: C50.912 - Carcinoma of left female breast, unspecified estrogen receptor status, unspecified site of breast (4) Non-small cell cancer of left lung Status: Chronic (5) CHF (congestive heart failure) Status: Acute Comment: Patient has increased crackles, mild edema, and history of diastolic dysfunction on echo last visit. Will diurese gently with lasix and check with Cardio regarding further work up. Qualifiers: Congestive heart failure type: diastolic (6) Edema Status: Chronic Comment: resume lasix. HPI/ROS Admit Date/Time Admit Date/Time Feb 17, 2017 at 17:56 Hx of Present Illness Patient presents with progressive cough and wheezing over the past few days and new onset chest pressure on day of admission. Patient was just restarted on nebulizer treatment when her cough came back last week. No fever or chills. No nasal congestion or headache. Chest pressure came on yesterday evening and lasted about an hour. No radiation. No nausea or vomiting . No diaphoresis. No palpitations. In ER , patient's chest ct was negative for pulmonary emboli and her shortness of breath was better with nebulizer treatment and she is admitted for rule out cardiac event. PMH/Family/Social Past Medical History Medical History: cancer, hypertension, other (Lumbar spine degenerative disc disease, Osteoporosis, osteoarthritis, fibrocystic disease.) Past Surgical History Past Surgical Hx: other (Bilateral hips surgery) Family History Significant Family History: cancer (father of lung cancer at 63, mother of colon cancer at 83.) Social History Alcohol Use: occasionally Smoking Status: Former smoker (1 and 1/2 pack a day for 20 years.) Drug Use: none Exam/Review of Systems Vital Signs Vitals Vital Signs Date Time Temp Pulse Resp B/P Pulse Ox O2 Delivery O2 Flow Rate FiO2 02/18/17 16:29 99 02/18/17 14:04 20 96 21 02/18/17 13:12 97.8 149/87 02/17/17 19:21 Room Air Intake and Output 02/17/17 02/17/17 02/18/17 15:00 23:00 07:00 Intake Total 300 ml Balance 300 ml Exam Constitutional: alert, oriented Head: atraumatic, normocephalic Eyes: nl conjunctiva, nl sclera ENMT: mucosa pink and moist, nl external ears & nose Neck: supple Respiratory: diminished breath sounds, wheezing ( rare expiratory) Cardiovascular: nl pulses, regular rate and rhythm Gastrointestinal: soft Musculoskeletal: nl extremities to inspection Labs Result Diagram: 02/18/1790502/18/17905 Medications Medications Current Medications Ondansetron HCl (Zofran Tab) 4 mg Q6H PRN PO NAUSEA AND/OR VOMITING; Start at 20:30 Aspirin (Aspirin) 81 mg DAILY PO Last administered on 02/18/17 09:18; Admin Dose 81 MG; Start 02/18/17 at 09:00 Methylprednisolone Sodium Succinate (Solu-Medrol) 60 mg DAILY IV Last administered on 02/18/17 09:17; Admin Dose 60 MG; Start 02/18/17 at 09:00 Nitroglycerin (Nitroglycerin (Sl Tab) 0.4 Mg) 1 tab Q5M PRN SL CHEST PAIN; Start 02/17/17 at 20:30 Hydromorphone HCl (Dilaudid) 0.5 mg Q4H PRN IV PAIN LEVEL 7-10 Last administered on 02/18/17 16:56; Admin Dose 0.5 MG; Start 02/17/17 at 20:30 Enoxaparin Sodium (Lovenox) 30 mg DAILY SC Last administered on 02/18/17 09: 22; Admin Dose 30 MG; Start 02/18/17 at 09:00 Anastrozole (Arimidex) 1 mg DAILY PO Last administered on 02/18/17 09:21; Admin Dose 1 MG; Start 02/18/17 at 09:00 Clonidine (Catapres) 0.1 mg TID PRN PO ELEVATED BLOOD PRESSURE Last administered on 02/18/17 00:41; Admin Dose 0.1 MG; Start 02/17/17 at 20:30 Pramipexole (Mirapex) 0.125 mg BID PO Last administered on 02/18/17 09:18; Admin Dose 0.125 MG; Start 02/17/17 at 21:00 Tiotropium [place] (Spiriva) 1 inh DAILY INH Last administered on 02/18/17 09 :17; Admin Dose 1 INH; Start 02/18/17 at 09:00 Levofloxacin (Levaquin) 250 mg HS PO ; Start 02/18/17 at 21:00 FERNIE BONE MD Feb 18, 2017 17:07
[2017-02-18] MEDS: LEVOFLOXACIN 250 MG TAB PO SCH (20:58)
--- NOTE | 2017-02-18 21:06 | CONS ---
DATE OF ADMISSION: 02/17/2017 DATE OF CONSULTATION: 02/18/2017 PHYSICIAN REQUESTING CONSULTATION: Dr. Christy Hernandez. Dear Dr. Hernandez. Thank you very much for asking me to see this very interesting and pleasant patient in medical oncol ogic consultation. The patient is well known to me. She is an 81-year-old female who I originally saw in July of 2014. At that time, the patient was found to have a mass in the right breast. This w as interpreted as being invasive carcinoma with some neuroendocrine differentiation. The patient underwent a resection of the right breast mass and was found to have invasive lobular ca rcinoma with a maximum dimension of 13 mm. There was some invasive carcinoma. The patient did have complete excision of this area with no malignancy found. The patient chidi altamirano never started radiation therapy as recommended. She was started on anastrozole 1 mg daily. However, in August of 2014, the patient did show possible nodules in the left lower lobe of the lung. Ultimately, the patient was admitted to [facility] on 04/25/2016 and was in fact f ound to have a left lower lobe mass as well as mediastinal adenopathy. Biopsy did demonstrate that this was an adenocarcinoma of the lung. The patient did not have any "ice delivery driver mutations." The patient has since been treated with the combination of cisplatin and pemetrexed. The patient di d have a significant response to therapy but unfortunately has now been off of therapy since early . The patient actually was hospitalized here in November with exacerbation of chronic obstructive pul monary disease and then spent some time at [facility]. It is only recently t hat the patient has returned home. The patient is admitted to [facility] at this time with complaints of heaviness in her chest. The patient did have a CT angiogram of the chest which did not show any evidence of pul monary embolism. There was again the spiculated lesion in the left lower lobe noted. There were tr emeli pleural effusions noted with left greater than the right. There was also a 6 mm spiculated lesi on in the right lower lobe. The previous CT of the chest done in 05/2016 showed the lower lobes to be atelectatic. There was also a new deformity in the posterior aspect of the left 10th and 11th ri bs. On admission, the patient's white count is 6400, hemoglobin 11.4, hematocrit 32.7 and platelet count 223,000. Sodium 138, potassium 3.9, creatinine 0.98, BUN 38, calcium 10.1. Alkaline phosphatase 8 4, albumin 4.1, globulin 3.7. Troponins are negative x3. Pro-time is 11.9 seconds, INR of 0.88. U rinalysis is normal. PAST MEDICAL HISTORY: Other than those things mentioned above, the patient has a history of dyslexi a. She also has a history of hepatitis B, herpes zoster, as well as herpes simplex. She has had ch ronic obstructive pulmonary disease with asthma. Scoliosis. Also, the patient has had a right tota l hip replacement. She has also had D and C's in the past for polyps. MEDICATIONS: The patient's medications included: 1. Anastrozole 1 mg daily. 2. Celebrex 200 mg daily. 3. Hydromorphone 2 mg on a p.r.n. basis. 4. MS Contin 15 mg daily. ALLERGIES: THE PATIENT STATES SHE IS ALLERGIC TO: 1. PENICILLIN. 2. SULFA. 3. ACETAMINOPHEN. 4. CODEINE. 5. IBUPROFEN. SOCIAL HISTORY: The patient is unmarried. 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 She has had no known exposures to industrial toxins but has received chemother apy as noted. The patient did smoke in the past. She states she has not smoked since 1984. Does not use alcohol. FAMILY HISTORY: Remarkable in that father of lung cancer. He at 67 years of age. The pa tient's mother of colon cancer. She has a brother who is alive at 76 years of age with multipl e sclerosis. PHYSICAL EXAMINATION: GENERAL: At this time reveals a well-developed, thin female who is in no acute distress. VITAL SIGNS: Temperature 97.4, pulse 103 and regular, respirations 20, blood pressure 127/73 and pu lse oximetry is 94% on room air. SKIN: No ecchymosis, no petechiae or rashes, but the patient's face is dry and erythematous with so me flaking of the skin. HEENT: Normocephalic. No evidence of trauma. The pupils are equal, round, reactive to light and a ccommodation. Sclerae are nonicteric. Oral mucosa is moist without lesions. Tongue is well papill ated. There is no gingival hyperplasia, no hypertrophy of Waldeyer ring. NECK: Supple, no jugular venous distention or thyroid enlargement. No carotid bruits. CHEST: Decreased breath sounds in the left base. There are diffuse wheezes. There is also tendern ess on palpation of the ribs in the left sternal area at approximately the 6th or 7th rib. BREASTS: Examination reveals a well-healed incision in the medial aspect of the right breast as wel l as in the right axilla. There is also a palpable mass in the left breast. HEART: Sinus tachycardia. No S3, S4 or murmurs. ABDOMEN: Soft, no masses, no ascites. Bowel sounds are active. EXTREMITIES: Good range of motion. No clubbing, no edema or cyanosis. No palpable cords or Homans ' sign. NEUROLOGIC: Normal. As noted, this patient has had both a right-sided breast carcinoma and adenocarcinoma of the lung or iginating in the left lower lobe. These were technically 2 different lesions. The patient did respond to chemotherapy initially and has had resolution of pleural effusions. The patient, however, has been off chemotherapy for 2 months at this time. I have recently repeated a PET scan. This was done on 02/14/2017. This shows interval increase in size and number of metabolically active bilateral supraclavicular or intrathoracic lymph nodes. The re is no significant change in size or metabolic activity of the original left lower lung mass. It is 2.9 cm with an SUV of 8.8. It also shows continued decrease in size of previous bilateral pleura l effusions. There is, however, an avid left breast mass. This is in the upper inner quadrant of t he left breast and measures 0.9 cm. As noted, this patient has responded previously to chemotherapy. She has been off of chemotherapy f or 2 months and there now seems to be some evidence of progression of disease again. The patient ac s recently been found to have a left-sided breast mass as well. It is unclear whether this is a thi rd primary, being a new primary of the contralateral breast or whether this may be metastasis from t he original breast carcinoma or the adenocarcinoma of the lung. At this time, I will request a rib series as the patient is very tender in the area of the costoster nal junction at about the 7th rib. This may represent metastatic disease. Will also obtain ultraso und of the breast. If there is a mass determined, perhaps an ultrasound-guided needle biopsy can be performed. Once again, thank you very much for the opportunity of participating in the medical care of this rodrigue y interesting and pleasant patient. I will be happy to follow this patient with you and assist in h er oncologic evaluation and follow up as necessary. Dictated By: CLARISSA DE PAZ MD SR/NTS Conf#: [id number] DID#: [id number] CC: LISSETH TAYLOR MD;*EndCC*
[2017-02-19] VITALS (11 sets, daily range): BP systolic 115–161; BP diastolic 64–88; PULSE 79–115; RESP 17–20
[2017-02-19] MEDS: LEVALBUTEROL (NEB) 0.63 MG/3 ML AMP HHN SCH ×4 (01:10→19:49)
[2017-02-19] MEDS: HYDROmorphONE 0.5 MG/0.5 ML SYG IV PRN ×3 (06:50→20:14)
[2017-02-19 09:16] LABS: BASOPHILS % 0.3 % (0.0-2.0); EOSINOPHILS # 0.1 10^3/ul (0.0-0.5); HEMATOCRIT 30.8 % (37.0-47.0); HEMOGLOBIN 11.2 g/dl (12.0-16.0); LYMPHOCYTES # 0.9 10^3/ul (0.8-2.9); LYMPHOCYTES % 14.8 % (15.0-51.0); MEAN CORPUSCULAR HEMOGLOBIN 37.7 pg (29.0-33.0); MEAN CORPUSCULAR HGB CONC 36.4 g/dl (32.0-37.0); MEAN CORPUSCULAR VOLUME 103.7 fl (82.0-101.0); MEAN PLATELET VOLUME 9.4 fl (7.4-10.4); MONOCYTE # 0.7 10^3/ul (0.3-0.9); NEUTROPHIL # 4.3 10^3/ul (1.6-7.5); NEUTROPHILS % 72.7 % (39.0-77.0); PLATELET COUNT 208 10^3/UL (140-415); RED BLOOD COUNT 2.97 10^6/ul (4.20-5.40); RED CELL DISTRIBUTION WIDTH 14.3 % (11.5-14.5); WHITE BLOOD COUNT 5.9 10^3/ul (4.8-10.8)
[2017-02-19 09:40] LABS: CALCIUM 9.2 mg/dl (8.4-10.2); CREATININE 0.99 mg/dl (0.44-1.00); POTASSIUM 3.9 mmol/L (3.5-5.1)
[2017-02-19] MEDS: PRAMIPEXOLE 0.125 MG TAB PO SCH ×2 (09:58→20:13)
[2017-02-19] MEDS: ASPIRIN 81 MG TAB PO SCH (09:58)
[2017-02-19] MEDS: predniSONE 20 MG TAB PO SCH (09:58)
[2017-02-19] MEDS: TIOTROPIUM 18 MCG CAPSULE INHA DEV INH SCH (10:01)
[2017-02-19] MEDS: FUROSEMIDE 20 MG INJ IV SCH (10:01)
[2017-02-19] MEDS: ANASTROZOLE 1 MG TAB PO SCH (10:01)
[2017-02-19] MEDS: ENOXAPARIN 30 MG/0.3 ML SYG SC SCH (10:07)
--- NOTE | 2017-02-19 10:16 | CONS ---
Date/Time of Note Date/Time of Note DATE: 02/19/17 TIME: 10:06 Assessment/Plan Assessment/Plan Additional Assessment/Plan Wheezing, shortness of breath and chest discomfort Lung cancer with possible worsening malignancy Preserved ejection fraction History of breast cancer COPD/asthma with acute exacerbation Hypertension -Patient with symptoms of shortness of breath, dry cough and wheezing with associated chest discomfort. Chest discomfort improved after nebulizer treatments and no further episodes of the past couple days. Troponin trend has had mild variations but still within normal limits. ECG with no significant ischemic abnormalities. Patient also with recent echocardiogram in November 2016 with preserved ejection fraction. I did have an extensive discussion with our patient regarding her symptoms. She feels very strongly this is related to her asthma since her symptoms have since resolved with nebulizer treatments. We discussed pursuing nuclear cardiac stress test. Patient refusing further cardiac testing. Would continue aspirin therapy, we will try low-dose beta- ludy and watch closely for any worsening wheezing or shortness of breath. Consultation Date/Type/Reason Admit Date/Time Feb 17, 2017 at 17:56 Type of Consultation: cv Reason for Consultation Chest pain Hx of Present Illness This is an 81-year-old female with past medical history of breast and lung cancer status post surgical intervention as well as chemotherapy who presents with symptoms of shortness of breath, cough, wheezing and chest discomfort. Symptoms began approximately 3 or 4 days ago. Main complaint is wheezing, dry cough and shortness of breath but she did notice some chest discomfort with her wheezing. Her chest discomfort resolved after nebulizer treatments, once a few hours later, she began wheezing again, the chest discomfort returned initially. Her last episode of chest discomfort was 2 days ago. She contacted her primary physician and was told to come to the emergency room for further evaluation care. Since her admission, as mentioned, she denies any chest discomfort over the past 2 days. She still has intermittent wheezing which is usually improved with nebulizer treatments. She does also complain of pinpoint tenderness along her sternum and near her breasts and there is concern of a possible lesion in that region as per the patient. Her activity has been decreased since her previous admission, she does walk with a walker and is slowly been increasing her walking distance with no exertional chest pain. Her limiting factor has been fatigue. 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 Exam/Review of Systems Vital Signs Vitals Vital Signs Date Time Temp Pulse Resp B/P Pulse Ox O2 Delivery O2 Flow Rate FiO2 02/19/17 08:12 79 02/19/17 07:53 97.8 18 159/86 93 02/19/17 01:10 21 02/17/17 19:21 Room Air Intake and Output 02/18/17 02/18/17 02/19/17 15:00 23:00 07:00 Intake Total 200 ml Balance 200 ml Exam No apparent distress, no dyspnea with speaking Constitutional: alert, frail, oriented Head: normocephalic Respiratory: other (Coarse breath sounds bilaterally with prolonged expiratory phase, no wheezing) Cardiovascular: other (S1-S2 heard), regular rate and rhythm Gastrointestinal: bowel sounds, non-tender, soft Musculoskeletal: other (Discomfort with palpation of sternum and left side of chest) Extremities: other (No edema) Results Result Diagram: 02/19/1781102/19/17811 Results 24 hrs Laboratory Tests Test 02/18/17 20:11 02/19/17 08:12 Carcinoembryonic Antigen 120.0 H White Blood Count 5.9 Red Blood Count 2.97 L Hemoglobin 11.2 L Hematocrit 30.8 L Mean Corpuscular Volume 103.7 H Mean Corpuscular Hemoglobin 37.7 H Mean Corpuscular Hemoglobin Concent 36.4 Red Cell Distribution Width 14.3 Platelet Count 208 Mean Platelet Volume 9.4 Neutrophils % 72.7 Lymphocytes % 14.8 L Monocytes % 11.0 Eosinophils % 1.0 Basophils % 0.3 Nucleated Red Blood Cells % 0.0 Neutrophils # 4.3 Lymphocytes # 0.9 Monocytes # 0.7 Eosinophils # 0.1 Basophils # 0.0 Nucleated Red Blood Cells # 0.0 Sodium Level 137 Potassium Level 3.9 Chloride Level 103 Carbon Dioxide Level 26 Anion Gap 12 Blood Urea Nitrogen 33 H Creatinine 0.99 Glucose Level 90 Calcium Level 9.2 B-Type Natriuretic Peptide 616 H Medications Medications Current Medications Ondansetron HCl (Zofran Tab) 4 mg Q6H PRN PO NAUSEA AND/OR VOMITING; Start at 20:30 Aspirin (Aspirin) 81 mg DAILY PO Last administered on 02/18/17 09:18; Admin Dose 81 MG; Start 02/18/17 at 09:00 Methylprednisolone Sodium Succinate (Solu-Medrol) 60 mg DAILY IV Last administered on 02/18/17 09:17; Admin Dose 60 MG; Start 02/18/17 at 09:00 Nitroglycerin (Nitroglycerin (Sl Tab) 0.4 Mg) 1 tab Q5M PRN SL CHEST PAIN; Start 02/17/17 at 20:30 Hydromorphone HCl (Dilaudid) 0.5 mg Q4H PRN IV PAIN LEVEL 7-10 Last administered on 02/19/17 06:50; Admin Dose 0.5 MG; Start 02/17/17 at 20:30 Enoxaparin Sodium (Lovenox) 30 mg DAILY SC Last administered on 02/18/17 09: 22; Admin Dose 30 MG; Start 02/18/17 at 09:00 Anastrozole (Arimidex) 1 mg DAILY PO Last administered on 02/18/17 09:21; Admin Dose 1 MG; Start 02/18/17 at 09:00 Clonidine (Catapres) 0.1 mg TID PRN PO ELEVATED BLOOD PRESSURE Last administered on 02/18/17 00:41; Admin Dose 0.1 MG; Start 02/17/17 at 20:30 Pramipexole (Mirapex) 0.125 mg BID PO Last administered on 02/18/17 20:58; Admin Dose 0.125 MG; Start 02/17/17 at 21:00 Tiotropium [place] (Spiriva) 1 inh DAILY INH Last administered on 02/18/17 09 :17; Admin Dose 1 INH; Start 02/18/17 at 09:00 Levofloxacin (Levaquin) 250 mg HS PO Last administered on 02/18/17 20:58; Admin Dose 250 MG; Start 02/18/17 at 21:00 Prednisone (Prednisone) 40 mg AM PO ; Start 02/19/17 at 09:00 Furosemide (Lasix) 20 mg DAILY IV ; Start 02/19/17 at 09:00 Procedures Procedures ECG demonstrates sinus tachycardia at 110 bpm, QRS 72 ms, poor R-wave progression, nonspecific ST abnormalities Kailash Martinez DO Feb 19, 2017 10:16
[2017-02-19] MEDS: METOPROLOL 25 MG TAB PO SCH ×2 (12:52→20:14)
--- NOTE | 2017-02-19 16:43 | PN ---
Date/Time of Note Date/Time of Note DATE: 02/19/17 TIME: 16:36 Assessment/Plan VTE Prophylaxis VTE Prophylaxis Intervention: LMWH Lines/Catheters IV Catheter Type (from [facility]): [facility] Urinary Cath still in place: No Assessment/Plan Problems: (1) Chest pain Status: Acute Comment: Most likely musculoskeletal with abnormal ct scan, metastatic disease is of concern given patient's history. Will continue work up with rib xrays and breast ultrasound. Qualifiers: Chest pain type: unspecified Qualified Code: R07.9 - Chest pain, unspecified type (2) Acute exacerbation of chronic obstructive pulmonary disease (COPD) Status: Acute Comment: improving , continue steroid taper and nebulizer treatment. (3) CHF (congestive heart failure) Status: Acute Comment: Continue lasix but change to oral . Add metoprolol for htn and diastolic dysfunction as recommended by cardiology. 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 Wheezing, cough, and shortness of breath better on respiratory treatment. Xrays of ribcage and breast ultrasound pending. Exam/Review of Systems Vital Signs Vitals Vital Signs Date Time Temp Pulse Resp B/P Pulse Ox O2 Delivery O2 Flow Rate FiO2 02/19/17 16:24 98.0 96 17 115/64 91 02/19/17 13:39 21 02/17/17 19:21 Room Air Intake and Output 02/18/17 02/18/17 02/19/17 15:00 23:00 07:00 Intake Total 200 ml Balance 200 ml Exam Constitutional: alert, oriented Head: atraumatic, normocephalic Eyes: nl conjunctiva, nl sclera ENMT: mucosa pink and moist, nl external ears & nose Neck: supple Respiratory: clear to auscultation, diminished breath sounds Cardiovascular: regular rate and rhythm Gastrointestinal: non-tender, soft Musculoskeletal: nl extremities to inspection Results Result Diagram: 02/19/1781102/19/17 08 Results 24 hrs Laboratory Tests Test 02/18/17 20:11 02/19/17 08:12 Carcinoembryonic Antigen 120.0 H White Blood Count 5.9 Red Blood Count 2.97 L Hemoglobin 11.2 L Hematocrit 30.8 L Mean Corpuscular Volume 103.7 H Mean Corpuscular Hemoglobin 37.7 H Mean Corpuscular Hemoglobin Concent 36.4 Red Cell Distribution Width 14.3 Platelet Count 208 Mean Platelet Volume 9.4 Neutrophils % 72.7 Lymphocytes % 14.8 L Monocytes % 11.0 Eosinophils % 1.0 Basophils % 0.3 Nucleated Red Blood Cells % 0.0 Neutrophils # 4.3 Lymphocytes # 0.9 Monocytes # 0.7 Eosinophils # 0.1 Basophils # 0.0 Nucleated Red Blood Cells # 0.0 Sodium Level 137 Potassium Level 3.9 Chloride Level 103 Carbon Dioxide Level 26 Anion Gap 12 Blood Urea Nitrogen 33 H Creatinine 0.99 Glucose Level 90 Calcium Level 9.2 B-Type Natriuretic Peptide 616 H Medications Medications Current Medications Ondansetron HCl (Zofran Tab) 4 mg Q6H PRN PO NAUSEA AND/OR VOMITING Last administered on 02/19/17 11:39; Admin Dose 4 MG; Start 02/17/17 at 20:30 Aspirin (Aspirin) 81 mg DAILY PO Last administered on 02/19/17 09:58; Admin Dose 81 MG; Start 02/18/17 at 09:00 Nitroglycerin (Nitroglycerin (Sl Tab) 0.4 Mg) 1 tab Q5M PRN SL CHEST PAIN; Start 02/17/17 at 20:30 Hydromorphone HCl (Dilaudid) 0.5 mg Q4H PRN IV PAIN LEVEL 7-10 Last administered on 02/19/17 14:02; Admin Dose 0.5 MG; Start 02/17/17 at 20:30 Enoxaparin Sodium (Lovenox) 30 mg DAILY SC Last administered on 02/19/17 10: 07; Admin Dose 30 MG; Start 02/18/17 at 09:00 Anastrozole (Arimidex) 1 mg DAILY PO Last administered on 02/19/17 10:01; Admin Dose 1 MG; Start 02/18/17 at 09:00 Clonidine (Catapres) 0.1 mg TID PRN PO ELEVATED BLOOD PRESSURE Last administered on 02/18/17 00:41; Admin Dose 0.1 MG; Start 02/17/17 at 20:30 Pramipexole (Mirapex) 0.125 mg BID PO Last administered on 02/19/17 09:58; Admin Dose 0.125 MG; Start 02/17/17 at 21:00 Tiotropium [place] (Spiriva) 1 inh DAILY INH Last administered on 02/19/17 10 :01; Admin Dose 1 INH; Start 02/18/17 at 09:00 Levofloxacin (Levaquin) 250 mg HS PO Last administered on 02/18/17 20:58; Admin Dose 250 MG; Start 02/18/17 at 21:00 Prednisone (Prednisone) 40 mg AM PO Last administered on 02/19/17 09:58; Admin Dose 40 MG; Start 02/19/17 at 09:00 Furosemide (Lasix) 20 mg DAILY IV Last administered on 02/19/17 10:01; Admin Dose 20 MG; Start 02/19/17 at 09:00 Metoprolol Tartrate (Lopressor) 12.5 mg BID PO Last administered on 02/19/17 12:52; Admin Dose 12.5 MG; Start 02/19/17 at 10:30 FERNIE BONE MD Feb 19, 2017 16:43
--- NOTE | 2017-02-19 16:59 | RADRPT ---
PROCEDURE: XR ribs. CLINICAL INDICATION: Left anterior rib pain TECHNIQUE: PA and oblique views of the chest and left ribs were obtained. COMPARISON: 05/03/2016 Chest x-ray FINDINGS: Left lateral anterior 11th rib deformity suggestive of fracture. This is uncertain age. No soft tiss ue or osseous abnormality. The cardiomediastinal silhouette is within normal limits of size. Small l eft pleural effusion . The lungs are otherwise clear with hyperinflation compatible with COPD. Athe rosclerotic calcification of the aorta. The visualized lungs are clear without pleural effusion or focal consolidation. IMPRESSION: 1. Left anterior rib fracture deformity of uncertain age. 2. Small pleural effusion. Hyperinflation compatible with COPD. RPTAT:AAJJ Physician Dwayne Date Time Electronically viewed and signed by Physician Dwayne on 02/19/2017 16:58 STEPHY/
[2017-02-19] MEDS: LEVOFLOXACIN 250 MG TAB PO SCH (20:13)
[2017-02-20] VITALS (11 sets, daily range): BP systolic 130–178; BP diastolic 67–92; PULSE 71–92; RESP 17–18
[2017-02-20] MEDS: LEVALBUTEROL (NEB) 0.63 MG/3 ML AMP HHN SCH ×4 (01:57→20:18)
[2017-02-20] MEDS: HYDROmorphONE 0.5 MG/0.5 ML SYG IV PRN ×5 (04:05→22:01)
--- NOTE | 2017-02-20 08:44 | CONS ---
Date/Time of Note Date/Time of Note DATE: 02/20/17 TIME: 08:40 Consult Date/Type/Reason Admit Date/Time Feb 19, 2017 at 12:37 Initial Consult Date Type of Consultation: cv Subjective No overnight events. Had breast u/s and rib series. Pt breathing easier. Not on supplemental oxygen. Objective Vital Signs Date Time Temp Pulse Resp B/P Pulse Ox O2 Delivery O2 Flow Rate FiO2 02/20/17 08:13 80 02/20/17 08:03 16 92 21 02/20/17 07:52 98.9 178/92 02/17/17 19:21 Room Air Intake and Output 02/19/17 02/19/17 02/20/17 15:00 23:00 07:00 Intake Total 800 ml 200 ml Balance 800 ml 200 ml Exam NAD/A&Ox4 OP clear Skin-dry Neck supple, mild SC adenopathy Left breast nodule present-tender to touch but not erythematous Bilateral wheezing Soft, NT, ND, +BS No c/c/e Results/Medications Result Diagram: 02/19/1712 02/19/17 0812 Medications Current Medications Ondansetron HCl (Zofran Tab) 4 mg Q6H PRN PO NAUSEA AND/OR VOMITING Last administered on 02/19/17 11:39; Admin Dose 4 MG; Start 02/17/17 at 20:30 Aspirin (Aspirin) 81 mg DAILY PO Last administered on 02/19/17 09:58; Admin Dose 81 MG; Start 02/18/17 at 09:00 Nitroglycerin (Nitroglycerin (Sl Tab) 0.4 Mg) 1 tab Q5M PRN SL CHEST PAIN; Start 02/17/17 at 20:30 Hydromorphone HCl (Dilaudid) 0.5 mg Q4H PRN IV PAIN LEVEL 7-10 Last administered on 02/20/17 07:55; Admin Dose 0.5 MG; Start 02/17/17 at 20:30 Enoxaparin Sodium (Lovenox) 30 mg DAILY SC Last administered on 02/19/17 10: 07; Admin Dose 30 MG; Start 02/18/17 at 09:00 Anastrozole (Arimidex) 1 mg DAILY PO Last administered on 02/19/17 10:01; Admin Dose 1 MG; Start 02/18/17 at 09:00 Clonidine (Catapres) 0.1 mg TID PRN PO ELEVATED BLOOD PRESSURE Last administered on 02/18/17 00:41; Admin Dose 0.1 MG; Start 02/17/17 at 20:30 Pramipexole (Mirapex) 0.125 mg BID PO Last administered on 02/19/17 20:13; Admin Dose 0.125 MG; Start 02/17/17 at 21:00 Tiotropium [place] (Spiriva) 1 inh DAILY INH Last administered on 02/19/17 10 :01; Admin Dose 1 INH; Start 02/18/17 at 09:00 Levofloxacin (Levaquin) 250 mg HS PO Last administered on 02/19/17 20:13; Admin Dose 250 MG; Start 02/18/17 at 21:00 Prednisone (Prednisone) 40 mg AM PO Last administered on 02/19/17 09:58; Admin Dose 40 MG; Start 02/19/17 at 09:00 Furosemide (Lasix) 20 mg DAILY IV Last administered on 02/19/17 10:01; Admin Dose 20 MG; Start 02/19/17 at 09:00 Metoprolol Tartrate (Lopressor) 12.5 mg BID PO Last administered on 02/19/17 20:14; Admin Dose 12.5 MG; Start 02/19/17 at 10:30 Assessment/Plan Chief Complaint/Hosp Course Pt with h/o breast cancer and lung cancer (complex history-see Dr. Cordova's consult note from 02/19) who presents with SOB and left breast pain. Nodule over left breast palpable and tender. Pt states it has been there for a while. Apparently has distant h/o breast cancer and is s/p lumpectomy but without radiation. On anastrozole as tumor ER+. Pt also has h/o met NSCLC, without an apparent automation driver mutation. PD-L1 status unclear to me but perhaps Dr. Cordova aware. Pt more comfortable at this time. Can undergo bx of left breast mass as outpt as not critical for inpt stay. Breast u/s results pending. Needs f/u with Dr. Cordova as outpt to coordinate care. Jagjit Velasco MD Heme/Onc Problems: JAGJIT VELASCO Feb 20, 2017 08:44
[2017-02-20] MEDS: TIOTROPIUM 18 MCG CAPSULE INHA DEV INH SCH (08:58)
[2017-02-20] MEDS: ASPIRIN 81 MG TAB PO SCH (08:58)
[2017-02-20] MEDS: PRAMIPEXOLE 0.125 MG TAB PO SCH ×2 (08:58→20:35)
[2017-02-20] MEDS: METOPROLOL 25 MG TAB PO SCH ×2 (08:59→20:35)
[2017-02-20] MEDS: ENOXAPARIN 30 MG/0.3 ML SYG SC SCH (08:59)
[2017-02-20] MEDS: FUROSEMIDE 20 MG INJ IV SCH (08:59)
[2017-02-20] MEDS: ANASTROZOLE 1 MG TAB PO SCH (09:00)
[2017-02-20] MEDS: predniSONE 20 MG TAB PO SCH (09:00)
--- NOTE | 2017-02-20 09:52 | RADRPT ---
PROCEDURE: Left breast ultrasound. CLINICAL INDICATION: Left breast palpable lesion and 11 o'clock position. TECHNIQUE: High-resolution sonography of the left breast was performed in the axial and sagittal p lanes. COMPARISON: CT scan of the chest dated 02/17/2017. FINDINGS: At the site of palpable lesion in the left breast 11 o'clock position, there is a solid hypoechoic m ass measuring 0.8 x 0.5 x 0.8 cm. There is no other cystic or solid mass at this site. IMPRESSION: 1. Solid hypoechoic mass measuring 0.8 cm at the site of the palpable lesion in the left breast 11 o'clock position. This may be benign or malignant. Correlation with mammography advised. 2. Any further management regarding any palpable lesion should be based upon clinical grounds. RPTAT: QQ .Abisai Mauricio MD, MD Date Time Electronically viewed and signed by .Abisai Mauricio MD, on 02/20/2017 09:51 .R/
[2017-02-20] MEDS: METOCLOPRAMIDE 10 MG TAB PO SCH ×2 (12:02→17:17)
--- NOTE | 2017-02-20 14:41 | CONS ---
Date/Time of Note Date/Time of Note DATE: 02/20/17 TIME: 14:38 Assessment/Plan Assessment/Plan Additional Assessment/Plan Wheezing, shortness of breath and chest discomfort Lung cancer with possible worsening malignancy Preserved ejection fraction History of breast cancer COPD/asthma with acute exacerbation Hypertension -Patient with no further chest discomfort. Tolerating Lopressor, increase dose as tolerated. If blood pressure remains elevated, would consider initiation of Norvasc. Consultation Date/Type/Reason Admit Date/Time Feb 19, 2017 at 12:37 Initial Consult Date Type of Consultation: cv 24 HR Interval Summary Free Text/Dictation Denies shortness of breath currently, occasional wheeze but improving. Denies chest discomfort. Is complaining of back pain on the left side Exam/Review of Systems Vital Signs Vitals Vital Signs Date Time Temp Pulse Resp B/P Pulse Ox O2 Delivery O2 Flow Rate FiO2 02/20/17 13:34 78 18 94 21 02/20/17 11:48 97.4 156/83 02/20/17 08:45 Nasal Cannula Intake and Output 02/19/17 02/19/17 02/20/17 15:00 23:00 07:00 Intake Total 800 ml 200 ml Balance 800 ml 200 ml Exam No apparent distress Constitutional: alert, frail, oriented Head: normocephalic Respiratory: other (Coarse breath sounds bilaterally, minimal and expiratory wheezing) Cardiovascular: other (S1-S2), regular rate and rhythm Gastrointestinal: bowel sounds, non-tender, soft Extremities: other (No edema) Results Result Diagram: 02/19/1712 02/19/17 0812 Medications Medications Current Medications Ondansetron HCl (Zofran Tab) 4 mg Q6H PRN PO NAUSEA AND/OR VOMITING Last administered on 02/19/17 11:39; Admin Dose 4 MG; Start 02/17/17 at 20:30 Aspirin (Aspirin) 81 mg DAILY PO Last administered on 02/20/17 08:58; Admin Dose 81 MG; Start 02/18/17 at 09:00 Nitroglycerin (Nitroglycerin (Sl Tab) 0.4 Mg) 1 tab Q5M PRN SL CHEST PAIN; Start 02/17/17 at 20:30 Hydromorphone HCl (Dilaudid) 0.5 mg Q4H PRN IV PAIN LEVEL 7-10 Last administered on 02/20/17 13:54; Admin Dose 0.5 MG; Start 02/17/17 at 20:30 Enoxaparin Sodium (Lovenox) 30 mg DAILY SC Last administered on 02/20/17 08: 59; Admin Dose 30 MG; Start 02/18/17 at 09:00 Anastrozole (Arimidex) 1 mg DAILY PO Last administered on 02/20/17 09:00; Admin Dose 1 MG; Start 02/18/17 at 09:00 Clonidine (Catapres) 0.1 mg TID PRN PO ELEVATED BLOOD PRESSURE Last administered on 02/18/17 00:41; Admin Dose 0.1 MG; Start 02/17/17 at 20:30 Pramipexole (Mirapex) 0.125 mg BID PO Last administered on 02/20/17 08:58; Admin Dose 0.125 MG; Start 02/17/17 at 21:00 Tiotropium [place] (Spiriva) 1 inh DAILY INH Last administered on 02/20/17 08 :58; Admin Dose 1 INH; Start 02/18/17 at 09:00 Levofloxacin (Levaquin) 250 mg HS PO Last administered on 02/19/17 20:13; Admin Dose 250 MG; Start 02/18/17 at 21:00 Prednisone (Prednisone) 40 mg AM PO Last administered on 02/20/17 09:00; Admin Dose 40 MG; Start 02/19/17 at 09:00 Furosemide (Lasix) 20 mg DAILY IV Last administered on 02/20/17 08:59; Admin Dose 20 MG; Start 02/19/17 at 09:00 Metoprolol Tartrate (Lopressor) 12.5 mg BID PO Last administered on 02/20/17 08:59; Admin Dose 12.5 MG; Start 02/19/17 at 10:30 Kailash Martinez DO Feb 20, 2017 14:41
[2017-02-20] MEDS ORDERED: BENZ200C43 PO (15:13)
[2017-02-20] MEDS ORDERED: LEVA0.634 HHN (15:13)
[2017-02-20] MEDS ORDERED: PRED20TA PO (15:13)
[2017-02-20] MEDS ORDERED: ASPI81TA3 PO (15:13)
[2017-02-20] MEDS ORDERED: METO-448 PO (15:13)
--- NOTE | 2017-02-20 15:22 | PN ---
Date/Time of Note Date/Time of Note DATE: 02/20/17 TIME: 15:13 Assessment/Plan VTE Prophylaxis VTE Prophylaxis Intervention: LMWH Lines/Catheters IV [facility] Peripheral IV Urinary Cath still in place: No Assessment/Plan Problems: (1) Chest pain Status: Acute Comment: probable fibrocystic disease or costochondritis but since patient has history of new PET lesion on left breast will need biopsy of left breast mass. We should be able to arrange for this as outpatient per Oncologist's recommendation. Will discharge to home tomorrow when she can have [facility] caregiver to pick her up and let her in her apartment. Qualifiers: Chest pain type: unspecified Qualified Code: R07.9 - Chest pain, unspecified type (2) Breast carcinoma Status: Chronic Qualifiers: Breast location: unspecified site of breast Estrogen receptor status: unspecified Patient sex: female Laterality: left Qualified Code: C50.912 - Carcinoma of left female breast, unspecified estrogen receptor status, unspecified site of breast (3) Acute exacerbation of chronic obstructive pulmonary disease (COPD) Status: Chronic Comment: improved on HHN and prednisone. Discharge to home on these new meds. (4) Non-small cell cancer of left lung Status: Chronic (5) Hypertension Status: Chronic Comment: will monitor on new metoprolol. Subjective 24 Hr Interval Summary Free Text/Dictation Still has mild chest pain and nausea. No more cough or shortness of breath. Exam/Review of Systems Vital Signs Vitals Vital Signs Date Time Temp Pulse Resp B/P Pulse Ox O2 Delivery O2 Flow Rate FiO2 02/20/17 13:34 78 18 94 21 02/20/17 11:48 97.4 156/83 02/20/17 08:45 Nasal Cannula Intake and Output 02/19/17 02/19/17 02/20/17 15:00 23:00 07:00 Intake Total 800 ml 200 ml Balance 800 ml 200 ml Exam Constitutional: alert, oriented Head: atraumatic, normocephalic Eyes: nl conjunctiva, nl sclera ENMT: mucosa pink and moist, nl external ears & nose Neck: supple Respiratory: clear to auscultation, normal air movement Cardiovascular: regular rate and rhythm Gastrointestinal: non-tender, soft Musculoskeletal: other (exquisite tenderness over left parasternal chest wall at costochondral junction.) Results Result Diagram: 02/19/1712 02/19/17 0812 Medications Medications Current Medications Ondansetron HCl (Zofran Tab) 4 mg Q6H PRN PO NAUSEA AND/OR VOMITING Last administered on 02/19/17 11:39; Admin Dose 4 MG; Start 02/17/17 at 20:30 Aspirin (Aspirin) 81 mg DAILY PO Last administered on 02/20/17 08:58; Admin Dose 81 MG; Start 02/18/17 at 09:00 Nitroglycerin (Nitroglycerin (Sl Tab) 0.4 Mg) 1 tab Q5M PRN SL CHEST PAIN; Start 02/17/17 at 20:30 Hydromorphone HCl (Dilaudid) 0.5 mg Q4H PRN IV PAIN LEVEL 7-10 Last administered on 02/20/17 13:54; Admin Dose 0.5 MG; Start 02/17/17 at 20:30 Enoxaparin Sodium (Lovenox) 30 mg DAILY SC Last administered on 02/20/17 08: 59; Admin Dose 30 MG; Start 02/18/17 at 09:00 Anastrozole (Arimidex) 1 mg DAILY PO Last administered on 02/20/17 09:00; Admin Dose 1 MG; Start 02/18/17 at 09:00 Clonidine (Catapres) 0.1 mg TID PRN PO ELEVATED BLOOD PRESSURE Last administered on 02/18/17 00:41; Admin Dose 0.1 MG; Start 02/17/17 at 20:30 Pramipexole (Mirapex) 0.125 mg BID PO Last administered on 02/20/17 08:58; Admin Dose 0.125 MG; Start 02/17/17 at 21:00 Tiotropium [place] (Spiriva) 1 inh DAILY INH Last administered on 02/20/17 08 :58; Admin Dose 1 INH; Start 02/18/17 at 09:00 Levofloxacin (Levaquin) 250 mg HS PO Last administered on 02/19/17 20:13; Admin Dose 250 MG; Start 02/18/17 at 21:00 Prednisone (Prednisone) 40 mg AM PO Last administered on 02/20/17 09:00; Admin Dose 40 MG; Start 02/19/17 at 09:00 Furosemide (Lasix) 20 mg DAILY IV Last administered on 02/20/17t 08:59; Admin Dose 20 MG; Start 02/19/17 at 09:00 Metoprolol Tartrate (Lopressor) 25 mg BID PO ; Start 02/20/17 at 21:00 FERNIE BONE MD Feb 20, 2017 15:22
[2017-02-20] MEDS: POLYETHYLENE GLYCOL 17 GM PACKET PO SCH (17:17)
[2017-02-20] MEDS: LEVOFLOXACIN 250 MG TAB PO SCH (20:34)
[2017-02-21] VITALS (8 sets, daily range): BP systolic 136–158; BP diastolic 73–93; PULSE 68–78; RESP 18–19
[2017-02-21] MEDS: LEVALBUTEROL (NEB) 0.63 MG/3 ML AMP HHN SCH ×3 (00:22→13:19)
[2017-02-21] MEDS: HYDROmorphONE 0.5 MG/0.5 ML SYG IV PRN ×3 (02:01→10:21)
[2017-02-21] MEDS: ANASTROZOLE 1 MG TAB PO SCH (08:52)
[2017-02-21] MEDS: ENOXAPARIN 30 MG/0.3 ML SYG SC SCH (08:52)
[2017-02-21] MEDS: PRAMIPEXOLE 0.125 MG TAB PO SCH (08:52)
[2017-02-21] MEDS: POLYETHYLENE GLYCOL 17 GM PACKET PO SCH (08:52)
[2017-02-21] MEDS: ASPIRIN 81 MG TAB PO SCH (08:53)
[2017-02-21] MEDS: METOPROLOL 25 MG TAB PO SCH (08:53)
[2017-02-21] MEDS: FUROSEMIDE 20 MG INJ IV SCH (08:53)
[2017-02-21] MEDS: predniSONE 20 MG TAB PO SCH (08:53)
[2017-02-21] MEDS: TIOTROPIUM 18 MCG CAPSULE INHA DEV INH SCH (08:54)
[2017-02-21] MEDS: METOCLOPRAMIDE 10 MG TAB PO SCH ×2 (08:55→11:38)
--- NOTE | 2017-02-21 13:11 | CONS ---
Date/Time of Note Date/Time of Note DATE: 02/21/17 TIME: 13:09 Assessment/Plan Assessment/Plan Additional Assessment/Plan Wheezing, shortness of breath and chest discomfort Lung cancer with possible worsening malignancy Preserved ejection fraction History of breast cancer COPD/asthma with acute exacerbation Hypertension -Patient with no further chest discomfort. Tolerating Lopressor, continue as tolerated watching for any worsening shortness of breath or wheezing. Consultation Date/Type/Reason Admit Date/Time Feb 19, 2017 at 12:37 Type of Consultation: cv 24 HR Interval Summary Free Text/Dictation Patient denies any shortness of breath, chest discomfort, wheezing at the current time Exam/Review of Systems Vital Signs Vitals Vital Signs Date Time Temp Pulse Resp B/P Pulse Ox O2 Delivery O2 Flow Rate FiO2 02/21/17 12:19 68 02/21/17 12:12 98.4 19 141/73 93 02/21/17 08:02 21 02/20/17 19:54 Nasal Cannula Intake and Output 02/20/17 02/20/17 02/21/17 14:59 22:59 06:59 Intake Total 1000 ml 120 ml Balance 1000 ml 120 ml Exam No apparent distress Constitutional: alert, frail, oriented Head: normocephalic Respiratory: other (Coarse breath sounds bilaterally with prolonged expiratory phase, no wheezing heard) Cardiovascular: other (S1-S2 heard), regular rate and rhythm Gastrointestinal: bowel sounds, non-tender, soft Extremities: other (No edema) Results Result Diagram: 02/19/17 0812 02/19/17 0812 Medications Medications Current Medications Ondansetron HCl (Zofran Tab) 4 mg Q6H PRN PO NAUSEA AND/OR VOMITING Last administered on 02/19/17 11:39; Admin Dose 4 MG; Start 02/17/17 at 20:30 Aspirin (Aspirin) 81 mg DAILY PO Last administered on 02/21/17 08:53; Admin Dose 81 MG; Start 02/18/17 at 09:00 Nitroglycerin (Nitroglycerin (Sl Tab) 0.4 Mg) 1 tab Q5M PRN SL CHEST PAIN; Start 02/17/17 at 20:30 Hydromorphone HCl (Dilaudid) 0.5 mg Q4H PRN IV PAIN LEVEL 7-10 Last administered on 02/21/17 10:21; Admin Dose 0.5 MG; Start 02/17/17 at 20:30 Enoxaparin Sodium (Lovenox) 30 mg DAILY SC Last administered on 02/21/17 08: 52; Admin Dose 30 MG; Start 02/18/17 at 09:00 Anastrozole (Arimidex) 1 mg DAILY PO Last administered on 02/21/17 08:52; Admin Dose 1 MG; Start 02/18/17 at 09:00 Clonidine (Catapres) 0.1 mg TID PRN PO ELEVATED BLOOD PRESSURE Last administered on 02/18/17 00:41; Admin Dose 0.1 MG; Start 02/17/17 at 20:30 Pramipexole (Mirapex) 0.125 mg BID PO Last administered on 02/21/17 08:52; Admin Dose 0.125 MG; Start 02/17/17 at 21:00 Tiotropium [place] (Spiriva) 1 inh DAILY INH Last administered on 02/20/17 08 :58; Admin Dose 1 INH; Start 02/18/17 at 09:00 Levofloxacin (Levaquin) 250 mg HS PO Last administered on 02/20/17 20:34; Admin Dose 250 MG; Start 02/18/17 at 21:00 Prednisone (Prednisone) 40 mg AM PO Last administered on 02/21/17 08:53; Admin Dose 40 MG; Start 02/19/17 at 09:00 Furosemide (Lasix) 20 mg DAILY IV Last administered on 02/21/17 08:53; Admin Dose 20 MG; Start 02/19/17 at 09:00 Metoprolol Tartrate (Lopressor) 25 mg BID PO Last administered on 02/21/17 08 :53; Admin Dose 25 MG; Start 02/20/17 at 21:00 Polyethylene Glycol (Miralax) 17 gm DAILY PO Last administered on 02/21/17 08 :52; Admin Dose 17 GM; Start 02/20/17 at 16:30 Kailash Martinez DO Feb 21, 2017 13:11
--- NOTE | 2017-02-21 13:36 | DS ---
Date/Time of Note Date/Time of Note DATE: 02/21/17 TIME: 13:23 Discharge Summary Admission/Discharge Info Admit Date/Time Feb 19, 2017 at 12:37 Discharge Date/Time February 21, 2017 at 1324 Discharge Diagnosis 1. COPD exacerbation 2. Chest pain 3. Costochondritis 4. Left breast mass 5. Mild diastolic congestive heart failure 6. Hypertension 7. Nausea vomiting due to medications. 8. Lumbar spine degenerative disc disease 9. Chronic opiate use 10. Right breast cancer 11. Lung cancer Patient Condition: Fair Consults Cardiology consultation Hematology/oncology consultation Procedures Chest CT angiogram negative for PE. Serial cardiac enzymes positive for mild cardiac strain but no acute AK Hx of Present Illness Patient presents with progressive cough and wheezing over the past few days and new onset chest pressure on day of admission. Patient was just restarted on nebulizer treatment when her cough came back last week. No fever or chills. No nasal congestion or headache. Chest pressure came on yesterday evening and lasted about an hour. No radiation. No nausea or vomiting . No diaphoresis. No palpitations. In ER , patient's chest ct angiogram was negative for pulmonary emboli and her shortness of breath was better with nebulizer treatment and she is admitted for rule out cardiac event. Hospital Course In the hospital, patient is troponin shows mild elevation and cardiology consult was obtained. Dr. Starkey he noted that patient's previous echocardiogram shows very mild diastolic dysfunction. Since patient's chest pressure and shortness of breath had improved with the nebulizer treatments, he doubted that patient had severe cardiac problem contributing to her chest symptoms. We did however start patient on metoprolol 25 mg p.o. twice daily for her mild hypertension and for her diastolic dysfunction. Patient was noted to have persistent left chest wall tenderness and her tobacco warehouse manager/oncologist Dr. Cordova did note that her recent PET scan showed new uptake in the left breast. We ordered a left breast ultrasound that showed a new nodule/ hypoechoic lesion on the left breast at the 11 o'clock position and the plan is for outpatient biopsy of this lesion. Patient 's chest CT also showed irregularities on 2 ribs on the left side and a rib series obtained suggest a remote rib fracture which is confirmed by patient' s history. Home Meds Active Scripts Pramipexole* (Mirapex*) 0.125 Mg Tablet, 0.125 MG PO BID for 30 Days, #60 TAB Prov:FERNIE HERNANDEZ MD 12/19/16 Clonidine Hcl* (Catapres*) 0.1 Mg Tablet, 0.1 MG PO TID Y for ELEVATED BLOOD PRESSURE for 30 Days, #30 TAB Prov:FERNIE HERNANDEZ MD 12/19/16 Tiotropium [place]* (Spiriva*) 18 Mcg Cap.w.dev, 1 INH INH DAILY for 30 Days, # 30 CAP Prov:FERNIE HERNANDEZ MD 12/19/16 Reported Medications Morphine Sulfate* (Ms Contin*) 15 Mg Tablet.sa, 15 MG PO Q12, TAB 02/17/17 Metoclopramide Hcl* (Metoclopramide Hcl*) 10 Mg Tablet, 10 MG PO TID for NAUSEA AND/OR VOMITING, TAB 02/17/17 Polyethylene Glycol 3350 (POLYETHYLENE GLYCOL 3350) 1 Gm Granules, 1 GM MC 12/16/16 Folic Acid* (Folic Acid*) 1 Mg Tablet, 1 MG PO DAILY, TAB 12/16/16 Sennosides/Docusate Sodium (Senna Laxative Tablet) 1 Each Tablet, 2 EACH PO DAILY, TAB 12/16/16 Anastrozole* (Arimidex*) 1 Mg Tablet, 1 MG PO DAILY, #30 TAB 04/25/16 Albuterol Sulfate* (Ventolin HFA*) 18 Gm Hfa.aer.ad, 2 PUFF INHALATION DIRECTED, #1 INHALER 04/25/16 Magnesium Oxide* (Magnesium Oxide*) 400 Mg Tablet, 400 MG PO DAILY, TAB 04/25/16 Cholecalciferol (Vitamin D3) (VITAMIN D-3) 2,000 Unit Capsule, 2000 UNIT PO DAILY 03/31/14 Discontinued Reported Medications Benzonatate* (Benzonatate*) 200 Mg Capsule, 200 MG PO TID Y for COUGH, CAP 12/16/16 Multivitamins* (Theragran*) 1 Tab Tab, 1 TAB PO DAILY, TAB 04/25/16 Morphine Sulfate* (Oramorph SR*) 30 Mg Tablet.sa, 30 MG PO Q12, TAB.SA 04/25/16 Discontinued Scripts Methylprednisolone* (Medrol* DOSE PACK) 4 Mg/Dose-Pack Tab.ds.pk, 4 MG PO . DIRECTED, #1 PACKET Prov:FERNIE HENRANDEZ MD 12/19/16 Zolpidem Tartrate (Ambien Dada) 5 Mg Tablet, 5 MG PO QHS Y for SLEEP for 30 Days , #30 TAB Prov:FERNIE HERNANDEZ MD 12/19/16 Levofloxacin* (Levaquin*) 250 Mg Tablet, 250 MG PO DAILY@0900 for 7 Days, #7 TAB Prov:FERNIE HERNANDEZ MD 12/19/16 Acyclovir* (Acyclovir*) 200 Mg Capsule, 200 MG PO TID for 30 Days, #90 CAP Prov:FERNIE HERNANDEZ MD 12/19/16 Follow-up Plan Patient is discharged home in fair condition with home health services for follow-up at home. She is to follow-up with Dr. Hernandez within 1 week Primary Care Provider Fernie Hernandez MD Time spent on discharge: > 30 minutes FERNIE HERNANDEZ MD Feb 21, 2017 13:35
== END 2017-02-21 14:09 | disposition home health service (06) | DRG 190 ==
LOC: E/R 15:02 → INTOOBSV 17:56 → MS4 17:56 → OBSVTOIN 02-19 12:37
PROVIDERS: ADMIT Internal Medicine; ATTEND Internal Medicine
DX: J44.1 Chronic obstructive pulmonary disease with (acute) exacerbation (principal); I50.33 Acute on chronic diastolic (congestive) heart failure; C34.92 Malignant neoplasm of unspecified part of left bronchus or lung; C50.911 Malignant neoplasm of unspecified site of right female breast; J45.901 Unspecified asthma with (acute) exacerbation; I11.0 Hypertensive heart disease with heart failure; M94.0 Chondrocostal junction syndrome [Tietze]; N63.0 Unspecified lump in unspecified breast; R07.9 Chest pain, unspecified; Z87.891 Personal history of nicotine dependence; Z79.891 Long term (current) use of opiate analgesic; Z92.21 Personal history of antineoplastic chemotherapy
CPT/HCPCS: 36415; 36600; 71010; 71100; 71275; 76642; 80048; 80053; 81003; 82378; 82803; 83690; 83880; 84484; 85025; 85610; 86300; 87400; 93005; 94640; 94644; 94664; 96374; 99217; G0378; J1940; J1170; J1650; J2930; J7030; J7512; Q9967

== ENCOUNTER 2017-04-17 22:15 | Inpatient (IN) | END 2017-04-30 21:55 | disposition EXP | DRG 207 ==